=== PATIENT | female | born 1955 | race Caucasian/White ===

== ENCOUNTER 2017-07-04 17:42 | Inpatient (IN) | payer BC ==
--- NOTE | 2017-07-04 17:43 | PDOC ---
History of Present Illness - General History Source: Patient Exam Limitations: No Limitations - History of Present Illness Initial Comments: 07/04/17 18:19 The patient is a 62-year-old female, with a significant past medical history of asthma, HTN, and hypercholesterolemia, who presents to the ED with chest pain and shortness of breath. The patient reports that she had a recent exacerbation of her asthma a week ago for which she was given a course of antibiotics and steroids. The patient finished her course of antibiotics but refused to take the steroids because she dislikes how they make her feel. Her symptoms did improve with the antibiotics but they recurred 2 days ago. She states that she feels more lethargic than usual and has been using her albuterol pump more recently in the last few days. She denies any fever, chills, nausea, vomiting, diarrhea, or abdominal pain. PCP: Dr. Tellez <Rosa Rucker - Last Filed: 07/04/17 18:19> <Tiffanie Mantilla - Last Filed: 07/04/17 19:04> - General Chief Complaint: Shortness of Breath Stated Complaint: SHORTNESS OF BREATH Time Seen by Provider: 07/04/17 17:43 Past History <Rosa Rucker - Last Filed: 07/04/17 18:19> - Past Medical History Asthma: Yes HTN: Yes Hypercholesterolemia: Yes - Surgical History Abdominal Surgery: Yes Cholecystectomy: Yes - Suicide/Smoking/Psychosocial Hx Smoking History: Former smoker Have you smoked in the past 12 months: Yes If you are a former smoker, when did you quit?: 04/2014 Hx Alcohol Use: No Drug/Substance Use Hx: No Substance Use Type: None Hx Substance Use Treatment: No <Tiffanie Mantilla - Last Filed: 07/04/17 19:04> - Past Medical History Allergies/Adverse Reactions: Allergies Allergy/AdvReac Type Severity Reaction Status Date / Time No Known Drug Allergies Allergy Verified 07/04/17 17:51 Home Medications: Ambulatory Orders Albuterol Sulfate [Proair Hfa -] 1 - 2 inh PO TID 12/05/14 Review of Systems - Review of Systems Able to Perform ROS?: Yes Comments:: 07/04/17 18:20 GENERAL/CONSTITUTIONAL: (+)lethargic. No fever or chills. No weakness. HEAD, EYES, EARS, NOSE AND THROAT: No change in vision. No ear pain or discharge. No sore throat. CARDIOVASCULAR: (+)chest pain, shortness of breath. RESPIRATORY: No cough, wheezing, or hemoptysis. GASTROINTESTINAL: No nausea, vomiting, diarrhea or constipation. GENITOURINARY: No dysuria, frequency, or change in urination. MUSCULOSKELETAL: No joint or muscle swelling or pain. No neck or back pain. SKIN: No rash NEUROLOGIC: No headache, vertigo, loss of consciousness, or change in strength/ sensation. ENDOCRINE: No increased thirst. No abnormal weight change. HEMATOLOGIC/LYMPHATIC: No anemia, easy bleeding, or history of blood clots. ALLERGIC/IMMUNOLOGIC: No hives or skin allergy. <Roas Rucker - Last Filed: 07/04/17 18:19> *Physical Exam - Vital Signs Last Vital Signs Temp Pulse Resp BP Pulse Ox 97.9 F 93 H 18 139/83 95 07/04/17 17:43 07/04/17 17:43 07/04/17 17:43 07/04/17 17:43 07/04/17 17:43 - Physical Exam Comments: 07/04/17 18:21 GENERAL: Awake, alert, and fully oriented, in no acute distress HEAD: No signs of trauma EYES: PERRLA, EOMI, sclera anicteric, conjunctiva clear ENT: Auricles normal inspection, hearing grossly normal, nares patent, oropharynx clear without exudates. Moist mucosa NECK: Normal ROM, supple, no lymphadenopathy, JVD, or masses LUNGS: (+)Wheezing diffusely with rhonchi at the bases. HEART: (+)Tachycardic. Normal S1 and S2, no murmurs, rubs or gallops ABDOMEN: Soft, nontender, normoactive bowel sounds. No guarding, no rebound. No masses EXTREMITIES: Normal range of motion, no edema. No clubbing or cyanosis. No cords, erythema, or tenderness NEUROLOGICAL: Cranial nerves II through XII grossly intact. Normal speech, normal gait SKIN: Warm, Dry, normal turgor, no rashes or lesions noted <Rosa Rucker - Last Filed: 07/04/17 18:19> Heart Score/ECG Review - ECG Intrepretation Comment:: 07/04/17 19:04 sinus at 83, L axis, nl interval, no acute st/t wave findings <Tiffanie Mantilla - Last Filed: 07/04/17 19:04> ED Treatment Course - Medications Given in the ED: ED Medications Discontinued Medications Generic Name Dose Route Start Last Admin Trade Name Nona PRN Reason Stop Dose Admin Albuterol/Ipratropium 1 amp 07/04/17 17:53 07/04/17 18:15 Duoneb - NEB 07/04/17 17:54 1 amp ONCE ONE Administration Methylprednisolone Sodium Succinate 125 mg 07/04/17 17:53 07/04/17 18:15 Solu-Medrol - IVPB 07/04/17 17:54 125 mg ONCE ONE Administration Sodium Chloride 1,000 ml 07/04/17 17:53 07/04/17 18:15 Normal Saline - IV 07/04/17 17:54 1,000 ml ONCE ONE Administration <Rosa Rucker - Last Filed: 07/04/17 18:19> - LABORATORY CBC & Chemistry Diagram: 07/04/17 18:10 07/04/17 18:10 <Tiffanie Mantilla - Last Filed: 07/04/17 19:04> Medical Decision Making - Medical Decision Making 07/04/17 17:55 a/p: 62yo female with sob -recently treated with augmentin -still with sob -increased inhaler use -will give duo nebs, steroids, ivf hydration -will check labs, xray, flu -suspect asthma exacerbation with URI vs pna <Tiffanie Mantilla - Last Filed: 07/04/17 19:04> *DC/Admit/Observation/Transfer - Attestations Scribe Attestion: 07/04/17 18:23 Documentation prepared by Rosa Rucker, acting as medical instrument cable fabricator for Tiffanie Mantilla DO, MD. <Rosa Rucker - Last Filed: 07/04/17 18:19> - Attestations Physician Attestion: 07/04/17 17:57 I, Dr. Tiffanie Mantilla DO, attest that this document has been prepared under my direction and personally reviewed by me in its entirety. I further attest, that it accurately reflects all work, treatment, procedures and medical decision -making performed by me. <Tiffanie Mantilla - Last Filed: 07/04/17 19:04> Diagnosis at time of Disposition: Asthma exacerbation - Discharge Dispostion Condition at time of disposition: Fair - Referrals Referrals: Bere Tellez MD [Staff Physician] - Julián Mcdermott MD [Staff Physician] - - Patient Instructions Printed Discharge Instructions: Smoking Cessation
[2017-07-04] MEDS ORDERED: ALBUTEROL SO4 2.5/IPRATROPIUM 0.5 INH SOL 3 ML VIAL.NEB. NEB ONE ×4 (17:53→17:58)
[2017-07-04] MEDS ORDERED: methylPREDNISolone NA SUCC 125 MG/2 ML VIAL IVPB ONE (17:53)
[2017-07-04] MEDS ORDERED: SODIUM CHLORIDE 0.9% 1000 ML INFUS.BAG IV ONE (17:53)
[2017-07-04] MEDS ORDERED: methylPREDNISolone NA SUCC 125 MG/2 ML VIAL ONE (17:58)
[2017-07-04 18:37] LABS: BASO % 0.6 % (0-2.0); MCH 30.3 pg (25.7-33.7); MCHC 33.9 g/dl (32.0-36.0); MEAN CELL VOLUME 89.4 fl (80-96); MEAN PLT VOLUME 9.3 fl (7.5-11.1); NEUT % 51.5 % (42.8-82.8); PLATELET COUNT 150 K/MM3 (134-434); RDW 12.9 % (11.6-15.6); WHITE BLOOD COUNT 6.2 K/mm3 (4.0-10.8)
[2017-07-04 18:48] LABS: ALBUMIN 3.7 g/dl (3.5-5.0); ALK PHOS 69 U/L (32-92); ANION GAP 8 (8-16); BILIRUBIN,TOTAL 0.3 mg/dl (0.2-1.0); CALCIUM 9.3 mg/dl (8.4-10.2); CO2 24 mmol/L (22-28); CREATININE 0.7 mg/dl (0.6-1.3); GLUCOSE,RANDOM 120 mg/dl (74-106); MAGNESIUM 1.8 mg/dL (1.8-2.4); SGOT/AST 44 U/L (10-42); SGPT/ALT 26 U/L (10-40); TOT PROT 7.1 g/dl (6.4-8.3)
[2017-07-04 19:26] LABS: EOS # 0.1 #; LYMPH # 2.2 # (8-40); MONO # 0.7 #; NEUT # 3.2 # (42.8-82.8)
--- NOTE | 2017-07-04 19:57 | PDOC ---
*Physical Exam - Vital Signs Last Vital Signs Temp Pulse Resp BP Pulse Ox 97.9 F 88 22 136/97 95 07/04/17 17:43 07/04/17 19:27 07/04/17 19:27 07/04/17 19:27 07/04/17 19:27 ED Treatment Course - LABORATORY CBC & Chemistry Diagram: 07/04/17 18:10 07/04/17 18:10 - ADDITIONAL ORDERS Additional order review: Laboratory Results 07/04/17 18:10 Sodium 136 Potassium 3.4 L Chloride 104 Carbon Dioxide 24 Anion Gap 8 BUN 16 Creatinine 0.7 Creat Clearance w eGFR > 60 Random Glucose 120 H Calcium 9.3 Magnesium 1.8 Total Bilirubin 0.3 AST 44 H ALT 26 Alkaline Phosphatase 69 Total Protein 7.1 Albumin 3.7 07/04/17 18:10 RBC 4.73 MCV 89.4 MCHC 33.9 RDW 12.9 MPV 9.3 Neutrophils % 51.5 Lymphocytes % 36.1 Monocytes % 10.8 H Eosinophils % 1.0 Basophils % 0.6 - Medications Given in the ED: ED Medications Discontinued Medications Generic Name Dose Route Start Last Admin Trade Name Freq PRN Reason Stop Dose Admin Albuterol/Ipratropium 1 amp 07/04/17 17:53 07/04/17 18:15 Duoneb - NEB 07/04/17 17:54 1 amp ONCE ONE Administration Albuterol/Ipratropium 1 amp 07/04/17 17:54 07/04/17 18:45 Duoneb - NEB 07/04/17 17:55 1 amp ONCE ONE Administration Albuterol/Ipratropium 1 amp 07/04/17 17:54 07/04/17 19:10 Duoneb - NEB 07/04/17 17:55 Not Given ONCE ONE Methylprednisolone Sodium Succinate 125 mg 07/04/17 17:53 07/04/17 18:15 Solu-Medrol - IVPB 07/04/17 17:54 125 mg ONCE ONE Administration Sodium Chloride 1,000 ml 07/04/17 17:53 07/04/17 18:15 Normal Saline - IV 07/04/17 17:54 1,000 ml ONCE ONE Administration Progress Note - Progress Note Progress Note: Care of this patient was transferred to [place] from Dr. Fallon at 1900 hrs. This is a 62-year-old female who comes in with history of asthma. Patient has had acute exacerbation of her asthma times several days now. On arrival as per Dr. Mantilla patient was relatively tight with O2 sat of 95%. Patient has received 3 duo nebs and steroids. Will reassess patient and the if patient is not improved patient will be placed in observation overnight for additional treatment and management of her asthma. 19:30 Reassessment of patient patient is still tachypnea with use of accessory muscles. Patient is moving air but she still has diffuse expiratory wheezes throughout all abraham and her O2 sat is ranging from 92-94% on room air. Patient will be placed in observation Discussed with admitting hospitalist who has accepted patient for observation admission. *DC/Admit/Observation/Transfer Diagnosis at time of Disposition: Status asthmaticus Qualifiers: Asthma severity: moderate Asthma persistence: unspecified Qualified Code(s): J45.902 - Unspecified asthma with status asthmaticus - Discharge Dispostion Condition at time of disposition: Fair Admit: Yes - Referrals - Patient Instructions - Post Discharge Activity
[2017-07-04] MEDS ORDERED: MAGNESIUM SULF 50% (8.12 MEQ/2 ML-1 GM VIAL) IVPB ONE (20:20)
[2017-07-04 20:58] VITALS: BMI 27.8
--- NOTE | 2017-07-04 21:54 | HP ---
CHIEF COMPLAINT: SOB PCP: Geoff HISTORY OF PRESENT ILLNESS: This is a 62 year old female with a past medical history of asthma, HTN, HLD who presented with chest pain, SOB. She was seen by her PCP and started on augmentin and prednisone about a week ago. She did not take the prednisone because she doesn't like the way it makes her feel. ER course was notable for: (1) CXR without obvious infiltrate (2) WBC 6.2 Recent Travel: pt denies PAST MEDICAL HISTORY: asthma HTN-off meds, no longer need after weight loss HLD PAST SURGICAL HISTORY: open cholecystectomy B/L cataract x 2 kyphoplasty T7-T8 Social History: Smoking: pt denies Alcohol: pt denies Drugs: pt denies Family History: mother age 66-ovarian [place] father age 75, CVA had ministrokes prior to fatal CVA sister with heart problems 2 children-one with turners syndrome Allergies No Known Drug Allergies Allergy (Verified 07/04/17 17:51) HOME MEDICATIONS: 3 Medication Instructions Recorded Albuterol Sulfate [Proair Hfa -] 1 - 2 inh PO TID 12/05/14 Symbicort 160/4.5mcg 2 puffs BID REVIEW OF SYSTEMS CONSTITUTIONAL: Absent: fever, chills, diaphoresis, generalized weakness, malaise, loss of appetite, weight change HEENT: Absent: rhinorrhea, nasal congestion, throat pain, throat swelling, difficulty swallowing, mouth swelling, ear pain, eye pain, visual changes CARDIOVASCULAR: chest pain Absent: syncope, palpitations, irregular heart rate, lightheadedness, peripheral edema RESPIRATORY: cough, shortness of breath, dyspnea with exertion Absent: orthopnea, wheezing, stridor, hemoptysis GASTROINTESTINAL: Absent: abdominal pain, abdominal distension, nausea, vomiting, diarrhea, constipation, melena, hematochezia GENITOURINARY: Absent: dysuria, frequency, urgency, hesitancy, hematuria, flank pain, genital pain MUSCULOSKELETAL: Absent: myalgia, arthralgia, joint swelling, back pain, neck pain SKIN: Absent: rash, itching, pallor HEMATOLOGIC/IMMUNOLOGIC: Absent: easy bleeding, easy bruising, lymphadenopathy, frequent infections ENDOCRINE: Absent: unexplained weight gain, unexplained weight loss, heat intolerance, cold intolerance NEUROLOGIC: Absent: headache, focal weakness or paresthesias, dizziness, unsteady gait, seizure, mental status changes, bladder or bowel incontinence PSYCHIATRIC: Absent: anxiety, depression, suicidal or homicidal ideation, hallucinations. PHYSICAL EXAMINATION Vital Signs - 24 hr 3 07/04/17 07/04/17 07/04/17 07/04/17 07/04/17 17:43 19:27 19:59 20:39 20:45 Temperature 97.9 F 98.5 F Pulse Rate 93 H 82 Pulse Rate [ 88 88 Left] Respiratory 18 22 22 17 Rate Blood Pressure 139/83 Blood Pressure 136/97 136/97 144/86 [Left] O2 Sat by Pulse 95 95 95 94 L Oximetry (%) GENERAL: Awake, alert, and fully oriented, in no acute distress. HEAD: Normal with no signs of trauma. EYES: Pupils equal, round and reactive to light, extraocular movements intact, sclera anicteric, conjunctiva clear. No lid lag. EARS, NOSE, THROAT: Ears normal, nares patent, oropharynx clear without exudates. Moist mucous membranes. NECK: Normal range of motion, supple without lymphadenopathy, JVD, or masses. LUNGS: No crackles. No accessory muscle use. + expiratory wheezing HEART: Regular rate and rhythm, normal S1 and S2 without murmur, rub or gallop. ABDOMEN: Soft, nontender, not distended, normoactive bowel sounds, no guarding, no rebound, no masses. No hepatomegaly or splenomegaly. MUSCULOSKELETAL: Normal range of motion at all joints. No bony deformities or tenderness. No CVA tenderness. UPPER EXTREMITIES: 2+ pulses, warm, well-perfused. No cyanosis. No clubbing. No peripheral edema. LOWER EXTREMITIES: 2+ pulses, warm, well-perfused. No calf tenderness. No peripheral edema. NEUROLOGICAL: Cranial nerves II-XII intact. Normal speech. Normal gait. PSYCHIATRIC: Cooperative. Good eye contact. Appropriate mood and affect. SKIN: Warm, dry, normal turgor, no rashes or lesions noted, normal capillary refill. Laboratory Results - last 24 hr 3 07/04/17 07/04/17 18:10 18:10 WBC 6.2 RBC 4.73 Hgb 14.3 Hct 42.3 MCV 89.4 MCH 30.3 MCHC 33.9 RDW 12.9 Plt Count 150 MPV 9.3 Neutrophils % 51.5 Lymphocytes % 36.1 Monocytes % 10.8 H Eosinophils % 1.0 Basophils % 0.6 Sodium 136 Potassium 3.4 L Chloride 104 Carbon Dioxide 24 Anion Gap 8 BUN 16 Creatinine 0.7 Creat Clearance w eGFR > 60 Random Glucose 120 H Calcium 9.3 Magnesium 1.8 Total Bilirubin 0.3 AST 44 H ALT 26 Alkaline Phosphatase 69 Total Protein 7.1 Albumin 3.7 ECG normal sinus rhythm Vent rate 83, QTC 479 possible left atrial enlargement, left axis deviation No acute ST changes ASSESSMENT/PLAN: 62yF with PMH ashtma, HTN, HLD presented with SOB and chest pain with recent treatment for asthma exacerbation. Asthma exacerbation - cont solumedrol 40mg Q6h - duoneb QID with albuterol PRN q4h - defer antibiotic use as no WBC or obvious infiltrate on CXR, await final read. HTN/HLD - off meds since weight loss - f/u with PCP FEN - tolerating po - BMP in am - regular diet DVT PPX - chemoprophylaxis deferred as anticipated LOS <48h, reassess if longer Dispo: pt currently requires inpatient observation for management of her emergent condition. Visit type - Emergency Visit Emergency Visit: Yes ED Registration Date: 07/04/17 Care time: The patient presented to the Emergency Department on the above date and was hospitalized for further evaluation of their emergent condition. - New Patient This patient is new to me today: Yes Date on this admission: 07/04/17 - Critical Care Critical Care patient: No
[2017-07-04] MEDS ORDERED: ALBUTEROL SO4 0.083% IH SOL 2.5 MG/3 ML VIAL.NEB. NEB PRN (21:58)
[2017-07-04] MEDS ORDERED: ALBUTEROL SO4 0.083% IH SOL 2.5 MG/3 ML VIAL.NEB. NEB SCH (22:00)
[2017-07-04] MEDS: ALBUTEROL SO4 2.5/IPRATROPIUM 0.5 INH SOL 3 ML VIAL.NEB. NEB SCH (23:09)
[2017-07-04] MEDS: BUDESONIDE/FORMETEROL FUMARATE 160/4.5 mcg INHALER IH SCH (23:10)
[2017-07-05] MEDS: methylPREDNISolone NA SUCC 40 MG/1 ML VIAL IVPUSH SCH ×4 (04:03→21:05)
[2017-07-05] MEDS: ALBUTEROL SO4 2.5/IPRATROPIUM 0.5 INH SOL 3 ML VIAL.NEB. NEB SCH ×4 (06:31→23:38)
--- NOTE | 2017-07-05 08:10 | PN ---
Physical Exam: SUBJECTIVE: Patient seen and examined, reports some dyspnea upon exertion, reports feeling slightly improved. OBJECTIVE: Patient is a 62 y/o female with a past medical history of asthma, HTN, and HLD. Patient was admitted from the emergency department to observation for asthma excerbation. vital Signs Period Temp Pulse Resp BP Sys/Vazquez Pulse Ox Last 24 Hr 97.9 F-98.5 F 68-93 17-22 136-146/75-97 94-97 GENERAL: The patient is awake, alert, and fully oriented, in no acute distress. HEAD: Normal with no signs of trauma. EYES: PERRL, extraocular movements intact, sclera anicteric, conjunctiva clear. No ptosis. ENT: Ears normal, nares patent, oropharynx clear without exudates, moist mucous membranes. NECK: Trachea midline, full range of motion, supple. LUNGS: Breath sounds equal, bilateral inspiratory wheeze noted to the apexes, diminished to the bases, RR 22, no crackles, no accessory muscle use. HEART: Regular rate and rhythm, S1, S2 without murmur, rub or gallop. ABDOMEN: Soft, nontender, nondistended, normoactive bowel sounds, no guarding, no rebound, no hepatosplenomegaly, no masses. EXTREMITIES: 2+ pulses, warm, well-perfused, no edema. NEUROLOGICAL: Cranial nerves II through XII grossly intact. Normal speech, gait not observed. PSYCH: Normal mood, normal affect. SKIN: Warm, dry, normal turgor, no rashes or lesions noted Laboratory Results - last 24 hr 07/04/17 07/04/17 18:10 18:10 WBC 6.2 RBC 4.73 Hgb 14.3 Hct 42.3 MCV 89.4 MCH 30.3 MCHC 33.9 RDW 12.9 Plt Count 150 MPV 9.3 Neutrophils % 51.5 Lymphocytes % 36.1 Monocytes % 10.8 H Eosinophils % 1.0 Basophils % 0.6 Sodium 136 Potassium 3.4 L Chloride 104 Carbon Dioxide 24 Anion Gap 8 BUN 16 Creatinine 0.7 Creat Clearance w eGFR > 60 Random Glucose 120 H Calcium 9.3 Magnesium 1.8 Total Bilirubin 0.3 AST 44 H ALT 26 Alkaline Phosphatase 69 Total Protein 7.1 Albumin 3.7 Active Medications Generic Name Dose Route Start Last Admin Trade Name Freq PRN Reason Stop Dose Admin Albuterol Sulfate 1 amp 12/25/17 21:58 Ventolin 0.083% Nebulizer Soln - NEB Q4H PRN SHORT OF BREATH/WHEEZING Albuterol/Ipratropium 1 amp 07/05/17 00:00 07/05/17 06:31 Duoneb - NEB 1 amp QIDR CORA Administration Budesonide/Formoterol Fumarate 2 puff 07/04/17 22:00 07/04/17 23:10 Symbicort 160/4.5mcg - IH Not Given BID CORA Methylprednisolone Sodium Succinate 40 mg 07/05/17 03:00 07/05/17 04:03 Solu-Medrol - IVPUSH 40 mg Q6H-IV CORA Administration IMAGING chest xray: no acute pathology chest CT: mild chronic interstial lung disease, left basilar atelactasis ASSESSMENT/PLAN: 1) pulm copd excerbation - continue solumedrol 40mg q6h - continue symbicort will add spiriva, continue albuterol neb q4h prn - keep spod2 above 92% with supplemental O2 - chest ct reviewed, pt has chronic disease will need pulmonary for follow up PFT's appreciate the input of professor/nurse anesthetist 2) cardiovascular hypertension - no home medications, b/p at goal, close monitoring f/e/n - low sodium diet - replete lytes prn ppx - lovenox - pepcid - oob - scd dispo: pt requires obsv admission Visit type - Emergency Visit Emergency Visit: Yes ED Registration Date: 07/04/17 Care time: The patient presented to the Emergency Department on the above date and was hospitalized for further evaluation of their emergent condition. - New Patient This patient is new to me today: Yes Date on this admission: 07/05/17 - Critical Care Critical Care patient: No - Discharge Referral Referred to [facility] Med P.C.: No
[2017-07-05 08:15] LABS: EOS % 0.1 % (0-4.5); MCHC 34.6 g/dl (32.0-36.0); MEAN CELL VOLUME 89.7 fl (80-96); MEAN PLT VOLUME 9.2 fl (7.5-11.1); PLATELET COUNT 157 K/MM3 (134-434); RDW 12.6 % (11.6-15.6)
[2017-07-05 08:35] LABS: ANION GAP 7 (8-16); CALCIUM 8.8 mg/dl (8.4-10.2); CO2 22 mmol/L (22-28); CREATININE 0.5 mg/dl (0.6-1.3); GLUCOSE,RANDOM 149 mg/dl (74-106); MAGNESIUM 1.9 mg/dL (1.8-2.4); PHOSPHOROUS 2.2 mg/dl (2.5-4.6)
[2017-07-05] MEDS ORDERED: PT OWN MED DRAWER 7, Y5N ONE ×2 (09:30→21:07)
[2017-07-05] MEDS ORDERED: MAGNESIUM SULF 50% (8.12 MEQ/2 ML-1 GM VIAL) IVPB ONE (09:30)
[2017-07-05] MEDS: NAPH,MB-DB/K PH,MBDB POWDER PACKET PO SCH ×2 (09:58→21:08)
[2017-07-05] MEDS ORDERED: TIOTROPIUM BROMIDE 18 MCG/INH (DEVICE W/ 5 CAPSULES) IH SCH (10:00)
[2017-07-05] MEDS: BUDESONIDE/FORMETEROL FUMARATE 160/4.5 mcg INHALER IH SCH ×2 (10:10→21:08)
[2017-07-05] MEDS: FAMOTIDINE 20 MG TABLET PO SCH ×2 (12:36→21:08)
--- NOTE | 2017-07-05 13:03 | EKG ---
Test Reason : Blood Pressure : / mmHG Vent. Rate : 083 BPM Atrial Rate : 083 BPM P-R Int : 126 ms QRS Dur : 090 ms QT Int : 408 ms P-R-T Axes : 053 -36 019 degrees QTc Int : 479 ms NORMAL SINUS RHYTHM POSSIBLE LEFT ATRIAL ENLARGEMENT LEFT AXIS DEVIATION ABNORMAL ECG WHEN COMPARED WITH ECG OF 01-NOV-2014 09:33, ST NO LONGER DEPRESSED IN LATERAL LEADS Confirmed by MD Kip, Vinnie ([id number]) on 07/05/2017 1:02:35 PM Referred By: Jakob Hutchins Confirmed By:Vinnie Shin MD
[2017-07-05] MEDS ORDERED: ALBUTEROL SO4 0.083% IH SOL 2.5 MG/3 ML VIAL.NEB. NEB PRN (14:34)
--- NOTE | 2017-07-05 14:34 | CON.PULM ---
Consult Consult Specialty:: PULMONARY Referred by:: JOSE MANUEL Reason for Consultation:: COUGH/WHEEZE - History of Present Illness Chief Complaint: COUGH/WHEEZE/SOB History of Present Illness: The patient is a 62-year-old female, with a significant past medical history of asthma, HTN, and hypercholesterolemia, who presents to the ED with chest pain and shortness of breath. The patient reports that she had a recent exacerbation of her asthma a week ago for which she was given a course of antibiotics and steroids. The patient finished her course of antibiotics but refused to take the steroids because she dislikes how they make her feel. Her symptoms did improve with the antibiotics but they recurred 2 days ago. She states that she feels more lethargic than usual and has been using her albuterol pump more recently in the last few days. She is an active smoker,1/2 ppd. 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 No: AFIB, DE Pulmonary: Yes: Asthma, COPD. 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 [employer] Home Medications - Allergies Allergies/Adverse Reactions: Allergies Allergy/AdvReac Type Severity Reaction Status Date / Time No Known Drug Allergies Allergy Verified 07/04/17 17:51 - Home Medications Home Medications: Ambulatory Orders Albuterol Sulfate [Proair Hfa -] 1 - 2 inh PO TID 12/05/14 Family Disease History - Family Disease History Family History: Unremarkable Review of Systems - Review of Systems Constitutional: denies: Fever Eyes: denies: Blurred Vision HENT: denies: Difficult Swallowing Neck: denies: Decreased ROM Cardiovascular: reports: Chest Pain, Shortness of Breath Respiratory: reports: Cough, Exercise Intolerance, SOB, SOB on Exertion, Wheezing. denies: Hemoptysis Physical Exam Vital Sings: Vital Signs Temperature 98.4 F 07/05/17 13:45 Pulse Rate 82 07/05/17 13:45 Respiratory Rate 19 07/05/17 13:45 Blood Pressure 122/72 07/05/17 13:45 O2 Sat by Pulse Oximetry (%) 96 07/05/17 13:45 Constitutional: Yes: Calm Eyes: Yes: EOM Intact HENT: Yes: Normocephalic Neck: Yes: Trachea Midline Cardiovascular: Yes: Regular Rate and Rhythm Respiratory: Yes: Wheezes (b/l diffuse/exp) Gastrointestinal: Yes: Normal Bowel Sounds Edema: No Labs: CBC, BMP 07/05/17 07:00 07/05/17 07:00 rest reviewed Imaging - Results Chest X-ray: Report Reviewed, Image Reviewed Cat Scan: Report Reviewed, Image Reviewed Problem List - Problems (1) COPD (chronic obstructive pulmonary disease) with acute bronchitis Code(s): J44.0 - CHRONIC OBSTRUCTIVE PULMON DISEASE W ACUTE LOWER RESP INFCT; J20.9 - ACUTE BRONCHITIS, UNSPECIFIED (2) Asthma exacerbation Code(s): J45.901 - UNSPECIFIED ASTHMA WITH (ACUTE) EXACERBATION (3) HTN (hypertension) Code(s): I10 - ESSENTIAL (PRIMARY) HYPERTENSION Qualifiers: Hypertension type: essential hypertension Qualified Code(s): I10 - Essential (primary) hypertension (4) URI (upper respiratory infection) Code(s): J06.9 - ACUTE UPPER RESPIRATORY INFECTION, UNSPECIFIED Assessment/Plan A/E COPD/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
[2017-07-06] MEDS: ALBUTEROL SO4 2.5/IPRATROPIUM 0.5 INH SOL 3 ML VIAL.NEB. NEB SCH ×3 (04:12→12:57)
[2017-07-06] MEDS: methylPREDNISolone NA SUCC 40 MG/1 ML VIAL IVPUSH SCH ×4 (04:14→21:23)
[2017-07-06 08:36] LABS: ANION GAP 9 (8-16); CALCIUM 8.9 mg/dl (8.4-10.2); CO2 21 mmol/L (22-28); CREATININE 0.5 mg/dl (0.6-1.3); GLUCOSE,RANDOM 125 mg/dl (74-106); PHOSPHOROUS 3.1 mg/dl (2.5-4.6)
[2017-07-06 08:40] LABS: BASO % 0.2 % (0-2.0); MCH 30.5 pg (25.7-33.7); MCHC 33.8 g/dl (32.0-36.0); MEAN CELL VOLUME 90.1 fl (80-96); MEAN PLT VOLUME 9.6 fl (7.5-11.1); PLATELET COUNT 192 K/MM3 (134-434); RDW 12.8 % (11.6-15.6); WHITE BLOOD COUNT 13.8 K/mm3 (4.0-10.8)
[2017-07-06 08:48] LABS: NEUT % 89.9 % (42.8-82.8)
[2017-07-06] MEDS ORDERED: PT OWN MED DRAWER 7, Y5N ONE ×2 (09:04→21:05)
[2017-07-06] MEDS: NICOTINE 14 MG/24 HOURS TOPICAL PATCH TD SCH (09:12)
[2017-07-06] MEDS: FAMOTIDINE 20 MG TABLET PO SCH ×2 (09:13→21:23)
[2017-07-06] MEDS: NAPH,MB-DB/K PH,MBDB POWDER PACKET PO SCH ×2 (09:13→21:26)
[2017-07-06] MEDS ORDERED: ALBUTEROL SO4 0.083% IH SOL 2.5 MG/3 ML VIAL.NEB. NEB ONE (09:15)
[2017-07-06] MEDS: BUDESONIDE/FORMETEROL FUMARATE 160/4.5 mcg INHALER IH SCH ×2 (09:16→22:20)
[2017-07-06 09:28] LABS: MAGNESIUM 2.2 mg/dL (1.8-2.4)
--- NOTE | 2017-07-06 12:06 | PN ---
Physical Exam: SUBJECTIVE: Patient seen and examined, reports feeling slightly improved, ongoing dyspnea upon exertion OBJECTIVE:Patient is a 62 y/o female with a past medical history of asthma, HTN , and HLD. Patient was admitted from the emergency department to observation for asthma excerbation. Vital Signs Period Temp Pulse Resp BP Sys/Vazquez Pulse Ox Last 24 Hr 97.8 F-98.6 F 74-82 16-19 122-156/72-84 96-99 GENERAL: The patient is awake, alert, and fully oriented, in no acute distress. HEAD: Normal with no signs of trauma. EYES: PERRL, extraocular movements intact, sclera anicteric, conjunctiva clear. No ptosis. ENT: Ears normal, nares patent, oropharynx clear without exudates, moist mucous membranes. NECK: Trachea midline, full range of motion, supple. LUNGS: Breath sounds equal, bilateral inspiratory wheeze to apexes, diminished to bases, no crackles, no accessory muscle use. HEART: Regular rate and rhythm, S1, S2 without murmur, rub or gallop. ABDOMEN: Soft, nontender, nondistended, normoactive bowel sounds, no guarding, no rebound, no hepatosplenomegaly, no masses. EXTREMITIES: 2+ pulses, warm, well-perfused, no edema. NEUROLOGICAL: Cranial nerves II through XII grossly intact. Normal speech, gait not observed. PSYCH: Normal mood, normal affect. SKIN: Warm, dry, normal turgor, no rashes or lesions noted Laboratory Results - last 24 hr 07/06/17 07/06/17 08:00 08:00 WBC 13.8 H D RBC 4.55 Hgb 13.9 Hct 41.0 MCV 90.1 MCH 30.5 MCHC 33.8 RDW 12.8 Plt Count 192 D MPV 9.6 Neutrophils % 89.9 H Lymphocytes % 7.1 L D Monocytes % 2.8 L Eosinophils % 0.0 D Basophils % 0.2 D Sodium 135 L Potassium 3.8 Chloride 105 Carbon Dioxide 21 L Anion Gap 9 BUN 13 D Creatinine 0.5 L Random Glucose 125 H Calcium 8.9 Phosphorus 3.1 D Magnesium 2.2 Active Medications Generic Name Dose Route Start Last Admin Trade Name Freq PRN Reason Stop Dose Admin Albuterol Sulfate 1 amp 07/05/17 14:34 Ventolin 0.083% Nebulizer Soln - NEB Q1H PRN SHORT OF BREATH/WHEEZING Budesonide/Formoterol Fumarate 2 puff 07/04/17 22:00 07/06/17 09:16 Symbicort 160/4.5mcg - IH 2 puff BID CORA Administration Famotidine 20 mg 07/05/17 11:30 07/06/17 09:13 Pepcid - PO 20 mg BID CORA Administration Methylprednisolone Sodium Succinate 40 mg 07/05/17 03:00 07/06/17 09:12 Solu-Medrol - IVPUSH 40 mg Q6H-IV CORA Administration Nicotine 14 mg 07/06/17 10:00 07/06/17 09:12 Nicoderm Patch - TD 14 mg DAILY CORA Administration Potassium Phos/Sodium Phos 1 packet 07/05/17 10:00 07/06/17 09:13 Phos-Nak Packet - PO 1 packet BID CORA Administration Microbiology 07/04/17 18:10 Nasopharyngeal Swab Influenza Types A,B Antigen (MIGUEL ANGEL) - Final , negative 07/04/17 18:10 Nasopharyngeal Swab - Final IMAGING chest xray: no acute pathology chest CT: mild chronic interstial lung disease, left basilar atelactasis ASSESSMENT/PLAN: 1) pulm copd excerbation - continue solumedrol 40mg q6h - continue symbicort, add duonebs q6h standing and albuterol neb q4h prn - keep spod2 above 92% with supplemental O2 - pulmonary consulted and following 2) cardiovascular hypertension - no home medications, b/p at goal, close monitoring f/e/n - low sodium diet - replete lytes prn ppx - lovenox - pepcid - oob - scd dispo: pt requires obsv admission Visit type - Emergency Visit Emergency Visit: Yes ED Registration Date: 07/06/17 Care time: The patient presented to the Emergency Department on the above date and was hospitalized for further evaluation of their emergent condition. - New Patient This patient is new to me today: No - Critical Care Critical Care patient: No - Discharge Referral Referred to [facility] No
[2017-07-06] MEDS: ENOXAPARIN NA (PORCINE) 40 MG/0.4 ML DISP.SYRIN SQ SCH (14:00)
--- NOTE | 2017-07-06 16:28 | PN ---
Progress Note (short form) - Note Progress Note: PULMONARY VSS/AFEBRILE SUBJECTIVE IMPROVEMENT ANICTERIC SCATTERED MINIMAL EXP WHEEZE S1S2 BS+ NO EDEMA LABS/MEDS/NOTES/IMAGES REVIEWED WBC 13.8(?STEROIDS) A/E COPD/BRONCHOSPASTIC COMPONENT RESOLVING ACTIVE SMOKER NO INFILTRATE ON CT CHEST/INFLU SWAB - 02/IV STEROIDS START TAPER AM /COLE/LABA/LAMA/ICS PATIENT COMPLETED 8 DAYS OF BID AUGMENTIN LAST WEEK PEAK FLOW 330L/M MAY BE READY FOR DISCHARGE TOMORROW R INA CARREON Problem List - Problems (1) COPD (chronic obstructive pulmonary disease) with acute bronchitis Code(s): J44.0 - CHRONIC OBSTRUCTIVE PULMON DISEASE W ACUTE LOWER RESP INFCT; J20.9 - ACUTE BRONCHITIS, UNSPECIFIED (2) Asthma exacerbation Code(s): J45.901 - UNSPECIFIED ASTHMA WITH (ACUTE) EXACERBATION (3) HTN (hypertension) Code(s): I10 - ESSENTIAL (PRIMARY) HYPERTENSION Qualifiers: Hypertension type: essential hypertension Qualified Code(s): I10 - Essential (primary) hypertension (4) URI (upper respiratory infection) Code(s): J06.9 - ACUTE UPPER RESPIRATORY INFECTION, UNSPECIFIED
[2017-07-07] MEDS: methylPREDNISolone NA SUCC 40 MG/1 ML VIAL IVPUSH SCH ×4 (02:25→20:17)
[2017-07-07] MEDS: ALBUTEROL SO4 2.5/IPRATROPIUM 0.5 INH SOL 3 ML VIAL.NEB. NEB SCH ×4 (02:25→19:26)
[2017-07-07] MEDS ORDERED: PT OWN MED DRAWER 7, Y5N ONE (09:19)
[2017-07-07] MEDS: ENOXAPARIN NA (PORCINE) 40 MG/0.4 ML DISP.SYRIN SQ SCH (09:22)
[2017-07-07] MEDS: FAMOTIDINE 20 MG TABLET PO SCH ×2 (09:22→21:23)
[2017-07-07] MEDS: NAPH,MB-DB/K PH,MBDB POWDER PACKET PO SCH ×2 (09:22→21:23)
[2017-07-07] MEDS: NICOTINE 14 MG/24 HOURS TOPICAL PATCH TD SCH (09:22)
[2017-07-07] MEDS: BUDESONIDE/FORMETEROL FUMARATE 160/4.5 mcg INHALER IH SCH ×2 (09:25→21:23)
--- NOTE | 2017-07-07 10:21 | PN ---
Progress Note, Physician History of Present Illness: pulmonary alert,still c/o chest tightness,sob with exertion - Current Medication List Current Medications: Active Medications Albuterol Sulfate (Ventolin 0.083% Nebulizer Soln -) 1 amp NEB Q1H PRN PRN Reason: SHORT OF BREATH/WHEEZING Last Admin: 07/07/17 09:43 Dose: 1 amp Albuterol/Ipratropium (Duoneb -) 1 amp NEB QIDR [facility] Last Admin: 07/07/17 06:58 Dose: 1 amp Budesonide/Formoterol Fumarate (Symbicort 160/4.5mcg -) 2 puff IH BID [facility] Last Admin: 07/07/17 09:25 Dose: 2 puff Enoxaparin Sodium (Lovenox -) 40 mg SQ DAILY [facility] Last Admin: 07/07/17 09:22 Dose: 40 mg Famotidine (Pepcid -) 20 mg PO BID [facility] Last Admin: 07/07/17 09:22 Dose: 20 mg Methylprednisolone Sodium Succinate (Solu-Medrol -) 40 mg IVPUSH Q6H-IV [facility] Last Admin: 07/07/17 08:25 Dose: 40 mg Nicotine (Nicoderm Patch -) 14 mg TD DAILY [facility] Last Admin: 07/07/17 09:22 Dose: 14 mg Potassium Phos/Sodium Phos (Phos-Nak Packet -) 1 packet PO BID [facility] Last Admin: 07/07/17 09:22 Dose: 1 packet - Objective Vital Signs: Vital Signs Temperature 98.9 F 07/07/17 06:00 Pulse Rate 67 07/07/17 06:00 Respiratory Rate 18 07/07/17 07:38 Blood Pressure 162/89 07/07/17 06:00 O2 Sat by Pulse Oximetry (%) 96 07/07/17 07:38 Constitutional: Yes: Well Nourished, Calm Eyes: Yes: WNL HENT: Yes: WNL Neck: Yes: WNL Cardiovascular: Yes: Regular Rate and Rhythm, S1, S2 Respiratory: Yes: Wheezes (aaron wheezes) Gastrointestinal: Yes: Normal Bowel Sounds, Soft Extremities: Yes: WNL Edema: No Labs: CBC, BMP 07/06/17 08:00 07/06/17 08:00 Assessment/Plan Problem List - Problems (1) COPD (chronic obstructive pulmonary disease) with acute bronchitis Code(s): J44.0 - CHRONIC OBSTRUCTIVE PULMON DISEASE W ACUTE LOWER RESP INFCT; J20.9 - ACUTE BRONCHITIS, UNSPECIFIED (2) Asthma exacerbation Code(s): J45.901 - UNSPECIFIED ASTHMA WITH (ACUTE) EXACERBATION (3) HTN (hypertension) Code(s): I10 - ESSENTIAL (PRIMARY) HYPERTENSION Qualifiers: Hypertension type: essential hypertension Qualified Code(s): I10 - Essential (primary) hypertension (4) URI (upper respiratory infection) Code(s): J06.9 - ACUTE UPPER RESPIRATORY INFECTION, UNSPECIFIED Assessment/Plan A/E COPD/BRONCHOSPASTIC COMPONENT ACTIVE SMOKER 02 IV STEROID INHALED BRONCHODILATORS DAILY PEAK FLOW YEARLY LOW DOSE CHEST CT FOR STEPHANIE CANCER SCREENING DR MARQUEZ
--- NOTE | 2017-07-07 11:12 | PN ---
Physical Exam: SUBJECTIVE: Patient seen and examined, reports ongoing dyspnea upon exertionion and chest pain. OBJECTIVE: Patient is a 62 y/o female with a past medical history of asthma, HTN, and HLD. Patient was admitted from the emergency department for asthma excerbation. Vital Signs Period Temp Pulse Resp BP Sys/Vazquez Pulse Ox Last 24 Hr 98.0 F-98.9 F 67-78 16-18 118-162/64-89 94-96 GENERAL: The patient is awake, alert, and fully oriented, in no acute distress. HEAD: Normal with no signs of trauma. EYES: PERRL, extraocular movements intact, sclera anicteric, conjunctiva clear. No ptosis. ENT: Ears normal, nares patent, oropharynx clear without exudates, moist mucous membranes. NECK: Trachea midline, full range of motion, supple. LUNGS: Breath sounds equal, scant bilateral inspiratory wheeze, diminished to base, no crackles, no accessory muscle use. HEART: Regular rate and rhythm, S1, S2 without murmur, rub or gallop. ABDOMEN: Soft, nontender, nondistended, normoactive bowel sounds, no guarding, no rebound, no hepatosplenomegaly, no masses. EXTREMITIES: 2+ pulses, warm, well-perfused, no edema. NEUROLOGICAL: Cranial nerves II through XII grossly intact. Normal speech, gait not observed. PSYCH: Normal mood, normal affect. SKIN: Warm, dry, normal turgor, no rashes or lesions noted Active Medications Generic Name Dose Route Start Last Admin Trade Name Freq PRN Reason Stop Dose Admin Albuterol Sulfate 1 amp 07/05/17 14:34 07/07/17 09:43 Ventolin 0.083% Nebulizer Soln - NEB 1 amp Q1H PRN Administration SHORT OF BREATH/WHEEZING Albuterol/Ipratropium 1 amp 07/06/17 12:30 07/07/17 06:58 Duoneb - NEB 1 amp QIDR CORA Administration Budesonide/Formoterol Fumarate 2 puff 07/04/17 22:00 07/07/17 09:25 Symbicort 160/4.5mcg - IH 2 puff BID CORA Administration Enoxaparin Sodium 40 mg 07/06/17 13:30 07/07/17 09:22 Lovenox - SQ 40 mg DAILY CORA Administration Famotidine 20 mg 07/05/17 11:30 07/07/17 09:22 Pepcid - PO 20 mg BID CORA Administration Methylprednisolone Sodium Succinate 40 mg 07/05/17 03:00 07/07/17 08:25 Solu-Medrol - IVPUSH 40 mg Q6H-IV CORA Administration Nicotine 14 mg 07/06/17 10:00 07/07/17 09:22 Nicoderm Patch - TD 14 mg DAILY CORA Administration Potassium Phos/Sodium Phos 1 packet 07/05/17 10:00 07/07/17 09:22 Phos-Nak Packet - PO 1 packet BID CORA Administration Microbiology 07/04/17 18:10 Nasopharyngeal Swab Influenza Types A,B Antigen (MIGUEL ANGEL) - Final , negative 07/04/17 18:10 Nasopharyngeal Swab - Final, negative IMAGING chest xray: no acute pathology chest CT: mild chronic interstial lung disease, left basilar atelactasis ASSESSMENT/PLAN: 1) pulm copd excerbation - continue solumedrol 40mg q6h - continue symbicort and duonebs q6h standing and albuterol neb q4h prn - daily peak flow - keep spod2 above 92% with supplemental O2 - pulmonary consulted and following 2) cardiovascular hypertension - no home medications, b/p at goal, close monitoring f/e/n - low sodium diet - replete lytes prn ppx - lovenox - pepcid - oob - scd dispo: pt requires inpatient admission Visit type - Emergency Visit Emergency Visit: Yes ED Registration Date: 07/06/17 Care time: The patient presented to the Emergency Department on the above date and was hospitalized for further evaluation of their emergent condition. - New Patient This patient is new to me today: No - Critical Care Critical Care patient: No - Discharge Referral Referred to [facility] Med P.C.: No
[2017-07-08] MEDS: methylPREDNISolone NA SUCC 40 MG/1 ML VIAL IVPUSH SCH ×2 (02:35→08:41)
[2017-07-08] MEDS: ALBUTEROL SO4 2.5/IPRATROPIUM 0.5 INH SOL 3 ML VIAL.NEB. NEB SCH ×2 (06:00)
[2017-07-08 06:44] VITALS: TEMP 98.4
--- NOTE | 2017-07-08 08:06 | PN ---
Progress Note, Physician History of Present Illness: pulmonary alert,nad,-sob,-cough - Current Medication List Current Medications: Active Medications Albuterol Sulfate (Ventolin 0.083% Nebulizer Soln -) 1 amp NEB Q1H PRN PRN Reason: SHORT OF BREATH/WHEEZING Last Admin: 07/07/17 09:43 Dose: 1 amp Albuterol/Ipratropium (Duoneb -) 1 amp NEB QIDR [facility] Last Admin: 07/08/17 06:00 Dose: 1 amp Budesonide/Formoterol Fumarate (Symbicort 160/4.5mcg -) 2 puff IH BID [facility] Last Admin: 07/07/17 21:23 Dose: 2 puff Enoxaparin Sodium (Lovenox -) 40 mg SQ DAILY [facility] Last Admin: 07/07/17 09:22 Dose: 40 mg Famotidine (Pepcid -) 20 mg PO BID [facility] Last Admin: 07/07/17 21:23 Dose: 20 mg Methylprednisolone Sodium Succinate (Solu-Medrol -) 40 mg IVPUSH Q6H-IV [facility] Last Admin: 07/08/17 02:35 Dose: 40 mg Nicotine (Nicoderm Patch -) 14 mg TD DAILY [facility] Last Admin: 07/07/17 09:22 Dose: 14 mg Potassium Phos/Sodium Phos (Phos-Nak Packet -) 1 packet PO BID [facility] Last Admin: 07/07/17 21:23 Dose: 1 packet - Objective Vital Signs: Vital Signs Temperature 98.4 F 07/08/17 06:00 Pulse Rate 63 07/08/17 06:00 Respiratory Rate 18 07/08/17 07:54 Blood Pressure 173/69 07/08/17 06:00 O2 Sat by Pulse Oximetry (%) 95 07/08/17 07:54 Constitutional: Yes: Calm, Thin Eyes: Yes: WNL HENT: Yes: WNL Neck: Yes: WNL Cardiovascular: Yes: Regular Rate and Rhythm, S1, S2 Respiratory: Yes: CTA Bilaterally Gastrointestinal: Yes: Normal Bowel Sounds, Soft Extremities: Yes: WNL Edema: No Labs: CBC, BMP Assessment/Plan Problem List - Problems (1) COPD (chronic obstructive pulmonary disease) with acute bronchitis Code(s): J44.0 - CHRONIC OBSTRUCTIVE PULMON DISEASE W ACUTE LOWER RESP INFCT; J20.9 - ACUTE BRONCHITIS, UNSPECIFIED (2) Asthma exacerbation Code(s): J45.901 - UNSPECIFIED ASTHMA WITH (ACUTE) EXACERBATION (3) HTN (hypertension) Code(s): I10 - ESSENTIAL (PRIMARY) HYPERTENSION Qualifiers: Hypertension type: essential hypertension Qualified Code(s): I10 - Essential (primary) hypertension (4) URI (upper respiratory infection) Code(s): J06.9 - ACUTE UPPER RESPIRATORY INFECTION, UNSPECIFIED Assessment/Plan A/E COPD/BRONCHOSPASTIC COMPONENT ACTIVE SMOKER 02 PREDNISONE 5Omg DAILY X 3 DAYS WITH TAPER 10MG EVERY 3'DAYS INHALED BRONCHODILATORS SYMBICORT 160/4.4 2 PUFFS Q12 SPIRIVA 1 PUFF DAILY PFTS OUTPATIENT DAILY PEAK FLOW YEARLY LOW DOSE CHEST CT FOR LUNG CANCER SCREENING DR MARQUEZ
[2017-07-08] MEDS: FAMOTIDINE 20 MG TABLET PO SCH (09:42)
[2017-07-08] MEDS: NAPH,MB-DB/K PH,MBDB POWDER PACKET PO SCH (09:44)
[2017-07-08] MEDS: ENOXAPARIN NA (PORCINE) 40 MG/0.4 ML DISP.SYRIN SQ SCH (09:44)
[2017-07-08] MEDS: BUDESONIDE/FORMETEROL FUMARATE 160/4.5 mcg INHALER IH SCH (09:44)
[2017-07-08] MEDS: NICOTINE 14 MG/24 HOURS TOPICAL PATCH TD SCH (09:44)
[2017-07-08] MEDS ORDERED: predniSONE 20 MG TABLET (UD) PO ONE (09:58)
--- NOTE | 2017-07-08 10:31 | DS ---
Physical Exam: SUBJECTIVE: Patient seen and examined OBJECTIVE: Vital Signs Period Temp Pulse Resp BP Sys/Vazquez Pulse Ox Last 24 Hr 97.7 F-98.4 F 63-75 18-19 125-173/69-88 95-98 PHYSICAL EXAM GENERAL: The patient is awake, alert, and fully oriented, in no acute distress. HEAD: Normal with no signs of trauma. EYES: PERRL, extraocular movements intact, sclera anicteric, conjunctiva clear. ENT: Ears normal, nares patent, oropharynx clear without exudates, moist mucous membranes. NECK: Trachea midline, full range of motion, supple. LUNGS: Breath sounds equal, clear to auscultation bilaterally, no wheezes, no crackles, no accessory muscle use. HEART: Regular rate and rhythm, S1, S2 without murmur, rub or gallop. ABDOMEN: Soft, nontender, nondistended, normoactive bowel sounds, no guarding, no rebound, no hepatosplenomegaly, no masses. EXTREMITIES: 2+ pulses, warm, well-perfused, no edema. NEUROLOGICAL: Cranial nerves II through XII grossly intact. Normal speech, gait not observed. PSYCH: Normal mood, normal affect. SKIN: Warm, dry, normal turgor, no rashes or lesions noted. LABS HOSPITAL COURSE: Date of Admission:07/06/17 Date of Discharge: 07/08/17 Minutes to complete discharge: 45 Discharge Summary Reason For Visit: SHORTNESS OF BREATH Current Active Problems Asthma exacerbation (Acute) COPD (chronic obstructive pulmonary disease) with acute bronchitis (Acute) Status asthmaticus (Acute) Condition: Fair - Instructions Referrals: Bere Tellez MD [Staff Physician] - Julián Mcdermott MD [Staff Physician] - - Home Medications Comprehensive Discharge Medication List: Ambulatory Orders Albuterol Sulfate [Proair Hfa -] 1 - 2 inh PO TID 12/05/14 - Discharge Referral Referred to [facility] No
[2017-07-08 11:00] VITALS: BP 134/82; PULSE 86
== END 2017-07-08 11:27 | disposition home or self-care (01) | DRG 192 ==
LOC: FER 17:42 → FM/S 20:13 → OBSVTOIN 07-06 13:36
PROVIDERS: ADMIT Internal Medicine; ATTEND Nurse Practitioner Family
DX: J44.0 Chronic obstructive pulmonary disease with (acute) lower respiratory infection (principal); I10 Essential (primary) hypertension; E78.00 Pure hypercholesterolemia, unspecified; I11.9 Hypertensive heart disease without heart failure; J20.9 Acute bronchitis, unspecified; Z87.891 Personal history of nicotine dependence
CPT/HCPCS: 36415; 71020-TC; 71250-TC; 80048; 80053; 83735; 84100; 85025; 87804; 93005; 94150; 94640; 99282-25; G0378

== ENCOUNTER 2018-05-27 11:11 | Inpatient (IN) | payer BC ==
--- NOTE | 2018-05-27 11:13 | PDOC ---
History of Present Illness - General Chief Complaint: Respiratory Distress Stated Complaint: DIFFICULTY BREATHING Time Seen by Provider: 05/27/18 11:12 - History of Present Illness Initial Comments: 63 yo with history of asthma and COPD presenting with shortness of breath. Patient states that she has felt this way since Tuesday. She reports that this feels similar to previous asthma/COPD exacerbations in the past, most recently in Jun 2017. Has had inpatient stays, but never been intubated. Patient endorses cough which is somewhat alleviated with mucinex. Patient has taken nebulizers with albuterol, symbicort, proair, and oral prednisone tablets (20, 30, 30mg) at home which have provided minimal relief. No hemoptysis, no recent surgical history, no recent mobilization, no hormone use, no history of DVT or PE. No fevers, chills, chest pain, or abdominal pain. Past History - Past Medical History Allergies/Adverse Reactions: Allergies Allergy/AdvReac Type Severity Reaction Status Date / Time No Known Drug Allergies Allergy Verified 05/27/18 11:16 Home Medications: Ambulatory Orders Albuterol 0.083% Nebulizer [place] [Ventolin 0.083% Nebulizer Soln -] 1 neb IN PRN PRN 05/27/18 Albuterol Sulfate [Proair Hfa] 1 puff IN PRN 05/27/18 Budesonide/Formeterol Fumarate [SYMBICORT 80/4.5mcg -] 1 puff IN DAILY 05/27/18 Asthma: Yes COPD: No HTN: Yes Hypercholesterolemia: Yes - Surgical History Abdominal Surgery: Yes Cholecystectomy: Yes Orthopedic Surgery: Yes (BACK SURGERY) - Suicide/Smoking/Psychosocial Hx Smoking History: Former smoker Have you smoked in the past 12 months: Yes Number of Cigarettes Smoked Daily: 1 If you are a former smoker, when did you quit?: 04/2014 'Breaking Loose' booklet given: 07/04/17 Hx Alcohol Use: No Drug/Substance Use Hx: No Substance Use Type: None Hx Substance Use Treatment: No Review of Systems - Review of Systems Comments:: Constitutional: no fever, no chills HEENT: no throat pain, no dysphagia Cardiovascular: no chest pain, no palpitations Respiratory: +cough, +shortness of breath Gastrointestinal: no abdominal pain, no nausea, no vomiting Genitourinary: no dysuria, no frequency Musculoskeletal: no myalgia, +chronic back pain Skin: no rash, no itching Neurologic: no headache, no dizziness *Physical Exam - Physical Exam Comments: General: Awake, alert, and fully oriented, in no acute distress Head: No signs of trauma Eyes: EOMI, sclera anicteric ENT: Moist mucus membranes Neck: Normal ROM, supple Lungs: Diffuse wheezes present bilaterally with inspiratory and expiratory rhonchi; patient able to complete full sentences Cardio: Regular rhythm, S1 and S2 present Abdomen: Soft, nontender. No guarding, no rebound, no masses Extremities: Normal range of motion, Distal pulses present SKIN: Warm, Dry, normal turgor Neurologic: Cranial nerves II through XII grossly intact. Normal speech ED Treatment Course - LABORATORY CBC & Chemistry Diagram: 05/27/18 11:53 05/27/18 11:53 Medical Decision Making - Medical Decision Making 63 yo with history of asthma and COPD presenting with shortness of breath. -DDX includes but not limited to asthma exacerbation, COPD, pneumonia, URI, PNA , Allergic reaction -Duonebs 3 amp: Patient with improved lung exam, but wheezes still present at bilateral lung bases. Another 3 amps ordered -Azithromycin 500 given for COPD exacerbation -CXR: "No acute pathology. Larger heart since prior study of 07/04/2017" -No leukocytosis or anemia -Will reassess: Patient again with improved lung exam but with continued inspiratory/expiratory rhonchi as well as wheezes at the left lung base. Upon walking the patient, she feels short of breath and satting at 92. -Mag 2g ordered, as well as another 3 duonebs. Will reassess. 05/27/18 13:45 Patient satting 92 at rest, and upon ambulation. Plan to admit. 05/27/18 15:[address] Mccall who accepted patient for admission under attending, Dr. Tellez. *DC/Admit/Observation/Transfer Diagnosis at time of Disposition: Asthma exacerbation, COPD (chronic obstructive pulmonary disease) - Discharge Dispostion Condition at time of disposition: Guarded Decision to Admit order: Yes - Referrals - Patient Instructions - Post Discharge Activity
[2018-05-27] MEDS ORDERED: ALBUTEROL SO4 2.5/IPRATROPIUM 0.5 INH SOL 3 ML VIAL.NEB. NEB ONE ×12 (11:26→13:50)
[2018-05-27] MEDS ORDERED: AZITHROMYCIN 500 MG TABLET PO ONE (12:04)
[2018-05-27] MEDS ORDERED: methylPREDNISolone NA SUCC 125 MG/2 ML VIAL IVPUSH ONE (12:05)
[2018-05-27] MEDS ORDERED: AZITHROMYCIN 500 MG TABLET ONE (12:08)
--- NOTE | 2018-05-27 12:19 | PDOC ---
Attending Attestation - Resident Resident Name: Delmy Souza - ED Attending Attestation I have performed the following: I have examined & evaluated the patient, The case was reviewed & discussed with the resident, I agree w/resident's findings & plan, Exceptions are as noted - HPI HPI: 05/27/18 12:16 63 F with COPD, asthma, HTN, HLD, presenting with SOB and cough x 3 days. Pt states that she feels like she is having a COPD flare. Denies CP. Denies F/C. States that she typically has these when she has viral URIs. Pt denies any leg swelling. - Physicial Exam PE: 05/27/18 12:18 GENERAL: Awake, alert, and fully oriented, in no acute distress. HEAD: No signs of trauma EYES: PERRLA, EOMI, sclera anicteric, conjunctiva clear ENT: Auricles normal inspection, hearing grossly normal, nares patent, oropharynx clear without exudates. Moist mucosa NECK: Nontender, no stepoffs, Normal ROM, supple, no lymphadenopathy, JVD, or masses LUNGS: + prolonged expiratory phase with expiratory wheezes HEART: Regular rate and rhythm, normal S1 and S2, no murmurs, rubs or gallops ABDOMEN: Soft, nontender, normoactive bowel sounds. No guarding, no rebound. No masses EXTREMITIES: Normal range of motion, no edema. No clubbing or cyanosis. No cords, erythema, or tenderness NEUROLOGICAL: Cranial nerves II through XII intact. 5/5 strength and sensation in all extremities, Normal speech, normal gait, normal cerebellar function SKIN: Warm, Dry, normal turgor, no rashes or lesions noted. - Medical Decision Making 05/27/18 12:19 63 F with COPD flare, likely 2/2 viral URI. Pt afebrile, HD stable in ED. Will r /o PNA. - CXR - Labs - Nebs, steroids, azithro
[2018-05-27] MEDS ORDERED: methylPREDNISolone NA SUCC 125 MG/2 ML VIAL ONE (12:26)
[2018-05-27 12:30] LABS: ALBUMIN 3.5 g/dl (3.5-5.0); ALK PHOS 72 U/L (32-92); ANION GAP 7 MMOL/L (8-16); BILIRUBIN,TOTAL 0.5 mg/dl (0.2-1.0); BLOOD UREA NITROGEN 12 mg/dl (7-18); CALCIUM 8.9 mg/dl (8.4-10.2); CHLORIDE 103 mmol/L (98-107); CO2 22 mmol/L (22-28); CREATININE 0.8 mg/dl (0.6-1.3); GLUCOSE,RANDOM 92 mg/dl (74-106); MAGNESIUM 1.8 mg/dL (1.8-2.4); POTASSIUM 4.4 mmol/L (3.5-5.1); SGOT/AST 26 U/L (10-42); SGPT/ALT 16 U/L (10-40); SODIUM 132 mmol/L (136-145); TOT PROT 7.3 g/dl (6.4-8.3)
[2018-05-27 13:01] LABS: BASO % 1.1 % (0-2.0); EOS % 4.3 % (0-4.5); HEMATOCRIT 45.8 % (32.4-45.2); LYMPH % 19.1 % (8-40); MCHC 32.8 g/dl (32.0-36.0); MEAN CELL VOLUME 85.2 fl (80-96); MEAN PLT VOLUME 9.6 fl (7.5-11.1); NEUT % 62.5 % (42.8-82.8); PLATELET COUNT 183 K/MM3 (134-434); RBC 5.38 M/mm3 (3.60-5.2); RDW 13.1 % (11.6-15.6); WHITE BLOOD COUNT 6.1 K/mm3 (4.0-10.8)
[2018-05-27] MEDS ORDERED: MAGNESIUM SULF 50% (8.12 MEQ/2 ML-1 GM VIAL) IVPB ONE (13:39)
[2018-05-27] MEDS ORDERED: MAGNESIUM 1GM/D5W - 2 GM/200 ML IVPB IVPB ONE (13:51)
--- NOTE | 2018-05-27 16:30 | PN ---
Progress Note (short form) - Note Progress Note: PULMONARY CONSULTATION DICTATED 05/27/18 IMP COPD/ASTHMA EXACERBATION HTN HLD PLAN IV STEROIDS INHALED BRONCHODILATORS O2 MONITOR PEAK FLOW PFTS OUTPATIENT YEARLY LOW DOSE CHEST CT FOR LUNG CANCER SCREENING DVT PROPHYLAXIS DR MARQUEZ Problem List - Problems (1) Asthma with COPD with exacerbation Code(s): J44.1 - CHRONIC OBSTRUCTIVE PULMONARY DISEASE W (ACUTE) EXACERBATION; J45.901 - UNSPECIFIED ASTHMA WITH (ACUTE) EXACERBATION (2) Asthma exacerbation Code(s): J45.901 - UNSPECIFIED ASTHMA WITH (ACUTE) EXACERBATION (3) COPD (chronic obstructive pulmonary disease) Code(s): J44.9 - CHRONIC OBSTRUCTIVE PULMONARY DISEASE, UNSPECIFIED (4) HTN (hypertension) Code(s): I10 - ESSENTIAL (PRIMARY) HYPERTENSION (5) Dyspnea Code(s): R06.00 - DYSPNEA, UNSPECIFIED (6) Shortness of breath Code(s): R06.02 - SHORTNESS OF BREATH
[2018-05-27] MEDS ORDERED: TIOTROPIUM BROMIDE 2.5 MCG (SPIRIVA) RESPIMAT INHALER IH SCH (16:45)
--- NOTE | 2018-05-27 16:46 | HP ---
CHIEF COMPLAINT: PCP: Dr. Tellez HISTORY OF PRESENT ILLNESS: 63 year-old female with a PMH significant for HTN, HLD, asthma and COPD. Presented to ED today with a complaint of SOB and cough x 4 days. She states this feels like previous asthma/COPD exacerbations. She has been treating at home with albuterol nebulizer treatments, Symbicort, ProAir and oral prednisone (20, 20, 30mg) with minimal relief. She denies fever, sweats, chills. No history of intubations. ER course was notable for: (1) BP 156/116-->135/85 (2) Flu negative Recent Travel: No PAST MEDICAL HISTORY: Hypertension Hyperlipidemia Asthma COPD PAST SURGICAL HISTORY: Cohlecystectomy Bilateral cataracts Kyphoplasty C-sections x 2 Social History: Smoking: Alcohol: Drugs: Family History: mother age 66-ovarian [place] father age 75, CVA had ministrokes prior to fatal CVA sister with heart problems 2 children-one with Turners syndrome Allergies No Known Drug Allergies Allergy (Verified 05/27/18 11:16) HOME MEDICATIONS: Home Medications Medication Instructions Recorded Albuterol 0.083% Nebulizer Maria [place] Carmen 1 neb IN PRN PRN 05/27/18 [Ventolin 0.083% Nebulizer Soln -] Albuterol Sulfate [Proair Hfa] 1 puff IN PRN 05/27/18 Budesonide/Formeterol Fumarate 1 puff IN DAILY 05/27/18 [SYMBICORT 80/4.5mcg -] REVIEW OF SYSTEMS CONSTITUTIONAL: Absent: fever, chills, diaphoresis, generalized weakness, malaise, loss of appetite, weight change HEENT: Absent: rhinorrhea, nasal congestion, throat pain, throat swelling, difficulty swallowing, mouth swelling, ear pain, eye pain, visual changes CARDIOVASCULAR: Absent: chest pain, syncope, palpitations, irregular heart rate, lightheadedness , peripheral edema RESPIRATORY: +cough, +shortness of breath, +chest tightness Absent: dyspnea with exertion, orthopnea, wheezing, stridor, hemoptysis GASTROINTESTINAL: Absent: abdominal pain, abdominal distension, nausea, vomiting, diarrhea, constipation, melena, hematochezia GENITOURINARY: Absent: dysuria, frequency, urgency, hesitancy, hematuria, flank pain, genital pain MUSCULOSKELETAL: Absent: myalgia, arthralgia, joint swelling, back pain, neck pain SKIN: Absent: rash, itching, pallor HEMATOLOGIC/IMMUNOLOGIC: Absent: easy bleeding, easy bruising, lymphadenopathy, frequent infections ENDOCRINE: Absent: unexplained weight gain, unexplained weight loss, heat intolerance, cold intolerance NEUROLOGIC: Absent: headache, focal weakness or paresthesias, dizziness, unsteady gait, seizure, mental status changes, bladder or bowel incontinence PSYCHIATRIC: Absent: anxiety, depression, suicidal or homicidal ideation, hallucinations. PHYSICAL EXAMINATION Vital Signs - 24 hr 05/27/18 05/27/18 05/27/18 11:12 12:22 13:48 Temperature 99 F 98.3 F Pulse Rate 60 Pulse Rate [ 60 83 Right Radial] Respiratory 20 22 H 20 Rate Blood Pressure 156/116 H Blood Pressure 135/85 107/77 [Right Arm] O2 Sat by Pulse 95 95 91 L Oximetry (%) 05/27/18 16:27 Temperature Pulse Rate Pulse Rate [ 80 Right Radial] Respiratory 20 Rate Blood Pressure Blood Pressure 124/79 [Right Arm] O2 Sat by Pulse 93 L Oximetry (%) GENERAL: Awake, alert, and fully oriented, in no acute distress. HEAD: Normal with no signs of trauma. EYES: Pupils equal, round and reactive to light, extraocular movements intact, sclera anicteric, conjunctiva clear. No lid lag. EARS, NOSE, THROAT: Ears normal, nares patent, oropharynx clear without exudates. Moist mucous membranes. NECK: Normal range of motion, supple without lymphadenopathy, JVD, or masses. LUNGS: Diffuse rhonci, poor air movement bilaterally HEART: Regular rate and rhythm, normal S1 and S2 ABDOMEN: Soft, nontender, not distended MUSCULOSKELETAL: Normal range of motion at all joints. No bony deformities or tenderness. No CVA tenderness. UPPER EXTREMITIES: 2+ pulses, warm, well-perfused. No cyanosis. No clubbing. No peripheral edema. LOWER EXTREMITIES: 2+ pulses, warm, well-perfused. No calf tenderness. No peripheral edema. NEUROLOGICAL: Cranial nerves II-XII intact. Normal speech. Laboratory Results - last 24 hr 05/27/18 05/27/18 11:53 11:53 WBC 6.1 RBC 5.38 H Hgb 15.0 Hct 45.8 H MCV 85.2 MCH 28.0 MCHC 32.8 RDW 13.1 Plt Count 183 MPV 9.6 Absolute Neuts (auto) 3.7 Neutrophils % 62.5 Lymphocytes % 19.1 Monocytes % 13.0 H Eosinophils % 4.3 Basophils % 1.1 Sodium 132 L Potassium 4.4 Chloride 103 Carbon Dioxide 22 Anion Gap 7 L BUN 12 Creatinine 0.8 Creat Clearance w eGFR > 60 Random Glucose 92 D Calcium 8.9 Magnesium 1.8 Total Bilirubin 0.5 AST 26 D ALT 16 D Alkaline Phosphatase 72 Total Protein 7.3 Albumin 3.5 ASSESSMENT/PLAN: 63 year-old female with a PMH significant for HTN, HLD, asthma and COPD. Presented to ED today with a complaint of SOB and cough x 4 days. Asthma/COPD exacerbation --albuterol nebs PRN --Symbicort, Spiriva --IV steroids 40 q6h --afebrile, no leukocytosis, observe off antibiotics --pulmonary following Hypertension --BP stable --not on anti-hypertensives Hyperlipidemia --not on statin therapy FEN Fluids: PO intake adequate Electrolytes: replete as indicated Nutrition: low sodium DVT prophylaxis: subq lovenox Dispo: continues to require observation. Full code. Visit type - Emergency Visit Emergency Visit: Yes ED Registration Date: 05/27/18 Care time: The patient presented to the Emergency Department on the above date and was hospitalized for further evaluation of their emergent condition. - New Patient This patient is new to me today: Yes Date on this admission: 05/27/18 - Critical Care Critical Care patient: No
[2018-05-27 18:12] VITALS: BMI 27.6
[2018-05-27] MEDS: TIOTROPIUM BROMIDE 2.5 MCG (SPIRIVA) RESPIMAT INHALER IH SCH (19:55)
[2018-05-27] MEDS: methylPREDNISolone NA SUCC 40 MG/1 ML VIAL IVPUSH SCH (21:41)
[2018-05-27] MEDS: BUDESONIDE/FORMETEROL FUMARATE 160/4.5 mcg INHALER IH SCH (21:41)
[2018-05-28] MEDS: methylPREDNISolone NA SUCC 40 MG/1 ML VIAL IVPUSH SCH ×4 (03:25→21:52)
--- NOTE | 2018-05-28 09:03 | PN ---
Progress Note, Physician History of Present Illness: pulmonary alert,feeling better coughless dyspneic,+ - Current Medication List Current Medications: Active Medications Albuterol Sulfate (Ventolin 0.083% Nebulizer Soln -) 1 amp NEB Q4H PRN PRN Reason: SHORT OF BREATH/WHEEZING Budesonide/Formoterol Fumarate (Symbicort 160/4.5mcg -) 2 puff IH BID [facility] Last Admin: 05/27/18 21:41 Dose: 2 puff Enoxaparin Sodium (Lovenox -) 40 mg SQ DAILY [facility] Methylprednisolone Sodium Succinate (Solu-Medrol -) 40 mg IVPUSH Q6H-IV [facility] Last Admin: 05/28/18 03:25 Dose: 40 mg Tiotropium [place] (Spiriva Respimat) 2 puff IH DAILY [facility] Last Admin: 05/27/18 19:55 Dose: 2 puff - Objective Vital Signs: Vital Signs Temperature 97.5 F L 05/28/18 06:00 Pulse Rate 83 05/28/18 06:00 Respiratory Rate 16 05/28/18 06:00 Blood Pressure 130/82 05/28/18 06:00 O2 Sat by Pulse Oximetry (%) 94 L 05/28/18 07:30 Constitutional: Yes: Well Nourished, Calm Eyes: Yes: WNL HENT: Yes: WNL Neck: Yes: WNL Cardiovascular: Yes: Regular Rate and Rhythm, S1, S2 Respiratory: Yes: Wheezes (less wheezes bilaterally) Gastrointestinal: Yes: Normal Bowel Sounds, Soft Extremities: Yes: WNL Edema: No Labs: CBC, BMP 05/27/18 11:53 05/27/18 11:53 Problem List - Problems (1) Asthma with COPD with exacerbation Code(s): J44.1 - CHRONIC OBSTRUCTIVE PULMONARY DISEASE W (ACUTE) EXACERBATION; J45.901 - UNSPECIFIED ASTHMA WITH (ACUTE) EXACERBATION (2) Asthma exacerbation Code(s): J45.901 - UNSPECIFIED ASTHMA WITH (ACUTE) EXACERBATION (3) COPD (chronic obstructive pulmonary disease) Code(s): J44.9 - CHRONIC OBSTRUCTIVE PULMONARY DISEASE, UNSPECIFIED (4) HTN (hypertension) Code(s): I10 - ESSENTIAL (PRIMARY) HYPERTENSION (5) Dyspnea Code(s): R06.00 - DYSPNEA, UNSPECIFIED (6) Shortness of breath Code(s): R06.02 - SHORTNESS OF BREATH Assessment/Plan IMP COPD/ASTHMA EXACERBATION HTN HLD PLAN IV STEROIDS SAME DOSE INHALED BRONCHODILATORS O2 MONITOR PEAK FLOW ZITHROMAX PFTS OUTPATIENT LOW DOSE CHEST CT DVT PROPHYLAXIS DR MARQUEZ Problem List - Problems (1) Asthma with COPD with exacerbation Code(s): J44.1 - CHRONIC OBSTRUCTIVE PULMONARY DISEASE W (ACUTE) EXACERBATION; J45.901 - UNSPECIFIED ASTHMA WITH (ACUTE) EXACERBATION (2) Asthma exacerbation Code(s): J45.901 - UNSPECIFIED ASTHMA WITH (ACUTE) EXACERBATION (3) COPD (chronic obstructive pulmonary disease) Code(s): J44.9 - CHRONIC OBSTRUCTIVE PULMONARY DISEASE, UNSPECIFIED (4) HTN (hypertension) Code(s): I10 - ESSENTIAL (PRIMARY) HYPERTENSION (5) Dyspnea Code(s): R06.00 - DYSPNEA, UNSPECIFIED (6) Shortness of breath Code(s): R06.02 - SHORTNESS OF BREATH
[2018-05-28 09:24] LABS: BASO % 0.7 % (0-2.0); HEMOGLOBIN 14.4 GM/dl (10.7-15.3); LYMPH % 9.1 % (8-40); MCH 27.6 pg (25.7-33.7); MCHC 31.9 g/dl (32.0-36.0); MEAN CELL VOLUME 86.3 fl (80-96); MEAN PLT VOLUME 9.5 fl (7.5-11.1); MONO % 5.4 % (3.8-10.2); NEUT % 84.8 % (42.8-82.8); PLATELET COUNT 180 K/MM3 (134-434); RBC 5.22 M/mm3 (3.60-5.2); RDW 13.2 % (11.6-15.6); WHITE BLOOD COUNT 6.3 K/mm3 (4.0-10.8)
[2018-05-28] MEDS ORDERED: PT OWN MED DRAWER 7, Y5N ONE (09:32)
[2018-05-28 09:47] LABS: ALBUMIN 3.4 g/dl (3.5-5.0); ALK PHOS 69 U/L (32-92); ANION GAP 11 MMOL/L (8-16); BILIRUBIN,TOTAL 0.6 mg/dl (0.2-1.0); BLOOD UREA NITROGEN 17 mg/dl (7-18); CALCIUM 9.1 mg/dl (8.4-10.2); CHLORIDE 101 mmol/L (98-107); CO2 23 mmol/L (22-28); CREATININE 0.7 mg/dl (0.6-1.3); GLUCOSE,RANDOM 134 mg/dl (74-106); MAGNESIUM 2.2 mg/dL (1.8-2.4); POTASSIUM 4.6 mmol/L (3.5-5.1); SGOT/AST 19 U/L (10-42); SGPT/ALT 16 U/L (10-40); SODIUM 135 mmol/L (136-145); TOT PROT 7.2 g/dl (6.4-8.3)
[2018-05-28] MEDS ORDERED: ENOXAPARIN NA (PORCINE) 40 MG/0.4 ML DISP.SYRIN SQ SCH (10:00)
[2018-05-28] MEDS ORDERED: AZITHROMYCIN IVPB 500 MG in DEXTROSE 5%-WATER - 250 ML IVPB SCH (10:00)
--- NOTE | 2018-05-28 10:17 | CONS ---
DATE OF CONSULTATION: 05/27/2018 REFERRING PHYSICIAN: Cayla Jackman NP The patient is a 63-year-old white female known to me from previous hospitalizations with a past medical history of asthma/COPD, hypertension, hyperlipidemia, longstanding history of tobacco use, approximately a little less than an pack a day for many years, quit 1 year ago, admitted to [facility] with a complaint of increasing shortness of breath, cough, and chest congestion. Patient states she was doing well until Tuesday of this week, when she started developing shortness of breath, cough, wheezing. She started increasing inhaled bronchodilators, using albuterol more frequently without any improvement. She started taking some oral prednisone at home, which offered minimal relief. Symptoms worsened last night when lying in bed. She felt severely short of breath, at which time she presented to the emergency room. In the ER, she was treated with inhaled bronchodilators and IV steroids with some clinical improvement. The patient denies any chest pain, nausea, vomiting, diaphoresis. Denies any fevers, chills. Denies any recent URI symptoms. There is no history of occupational exposures to chemicals or fumes. There is no history of recent travel. 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 REVIEW OF SYSTEMS: Positive cough, positive shortness of breath, positive wheezing. No chest pain, no palpitations, no abdominal pain. MEDICATIONS PRIOR TO ADMISSION: Albuterol; Symbicort; and ProAir. CURRENT MEDICATIONS: Not recorded yet. PHYSICAL EXAMINATION: General: The patient is a well-developed, well-nourished female, awake, alert, mildly dyspneic, but in no acute distress. Vital Signs: She is afebrile. O2 saturation 91% on room air, respiratory rate is 20, blood pressure is 107/77. HEENT: Normocephalic, atraumatic. Neck: Supple. Heart: Regular, S1, S2. Chest: Diffuse bilateral wheezes. Abdomen: Soft, bowel sounds are positive. Extremities: No cyanosis, edema. LABORATORIES: WBC is 6.1, hemoglobin 15, hematocrit 45.8 with a platelet count of 183,000. Sodium is 132, BUN 12, creatinine 0.8. CHEST X-RAY: No infiltrates and no effusions. IMPRESSION: 1. Chronic obstructive pulmonary disease/asthma exacerbation. 2. Hyperlipidemia. 3. Hypertension. PLAN: IV steroids; inhaled bronchodilators; supplemental O2; low-dose CT scan of the chest for lung cancer screening; monitor peak flow; PFTs outpatient. SCOTTY MARQUEZ M.D. [id number] MTDD
[2018-05-28] MEDS: BUDESONIDE/FORMETEROL FUMARATE 160/4.5 mcg INHALER IH SCH ×2 (10:19→21:53)
[2018-05-28] MEDS: TIOTROPIUM BROMIDE 2.5 MCG (SPIRIVA) RESPIMAT INHALER IH SCH (10:19)
[2018-05-28] MEDS: AZITHROMYCIN IVPB 500 MG/250 ML BAG IVPB SCH (10:20)
[2018-05-28] MEDS: ALBUTEROL SO4 0.083% IH SOL 2.5 MG/3 ML VIAL.NEB. NEB PRN ×3 (10:20→22:03)
--- NOTE | 2018-05-28 12:35 | PN ---
Physical Exam: SUBJECTIVE: Patient seen at bedside, having dry cough, not able to bring up sputum. Denies SOB at present time. OBJECTIVE: Vital Signs Period Temp Pulse Resp BP Sys/Vazquez Pulse Ox Last 24 Hr 97.5 F-98.3 F 80-118 16-24 107-130/69-82 91-94 GENERAL: The patient is awake, alert, and fully oriented, in no acute distress. HEAD: Normal with no signs of trauma. EYES: PERRL, extraocular movements intact, sclera anicteric, conjunctiva clear. No ptosis. ENT: Ears normal, nares patent, oropharynx clear without exudates, moist mucous membranes. NECK: Trachea midline, full range of motion, supple. LUNGS: wheezing, rhonci, ausculated, bilaterally HEART: Regular rate and rhythm, S1, S2 without murmur, rub or gallop. ABDOMEN: Soft, nontender, nondistended, normoactive bowel sounds, no guarding, no rebound, no hepatosplenomegaly, no masses. EXTREMITIES: 2+ pulses, warm, well-perfused, no edema. NEUROLOGICAL: Cranial nerves II through XII grossly intact. Normal speech, gait not observed. PSYCH: Normal mood, normal affect. SKIN: Warm, dry, normal turgor, no rashes or lesions noted Laboratory Results - last 24 hr 05/27/18 05/27/18 05/28/18 11:53 11:53 06:30 WBC 6.1 6.3 RBC 5.38 H 5.22 H Hgb 15.0 14.4 Hct 45.8 H 45.0 MCV 85.2 86.3 MCH 28.0 27.6 MCHC 32.8 31.9 L RDW 13.1 13.2 Plt Count 183 180 MPV 9.6 9.5 Absolute Neuts (auto) 3.7 5.4 Neutrophils % 62.5 84.8 H Lymphocytes % 19.1 9.1 Monocytes % 13.0 H 5.4 Eosinophils % 4.3 0.0 Basophils % 1.1 0.7 Sodium 132 L Potassium 4.4 Chloride 103 Carbon Dioxide 22 Anion Gap 7 L BUN 12 Creatinine 0.8 Creat Clearance w eGFR > 60 Random Glucose 92 D Calcium 8.9 Magnesium 1.8 Total Bilirubin 0.5 AST 26 D ALT 16 D Alkaline Phosphatase 72 Total Protein 7.3 Albumin 3.5 05/28/18 06:30 WBC RBC Hgb Hct MCV MCH MCHC RDW Plt Count MPV Absolute Neuts (auto) Neutrophils % Lymphocytes % Monocytes % Eosinophils % Basophils % Sodium 135 L Potassium 4.6 Chloride 101 Carbon Dioxide 23 Anion Gap 11 BUN 17 Creatinine 0.7 Creat Clearance w eGFR > 60 Random Glucose 134 H D Calcium 9.1 Magnesium 2.2 Total Bilirubin 0.6 AST 19 D ALT 16 Alkaline Phosphatase 69 Total Protein 7.2 Albumin 3.4 L Active Medications Generic Name Dose Route Start Last Admin Trade Name Freq PRN Reason Stop Dose Admin Albuterol Sulfate 1 amp 05/27/18 16:32 05/28/18 10:20 Ventolin 0.083% Nebulizer Soln - NEB 1 amp Q4H PRN Administration SHORT OF BREATH/WHEEZING Budesonide/Formoterol Fumarate 2 puff 05/27/18 22:00 05/28/18 10:19 Symbicort 160/4.5mcg - IH 2 puff BID [facility]A Administration Enoxaparin Sodium 40 mg 05/28/18 10:00 05/28/18 10:19 Lovenox - SQ 40 mg DAILY [facility] Administration Azithromycin 500 mg in 250 mls @ 250 mls/hr 05/28/18 10:00 05/28/18 10:20 Zithromax 500mg Ivpb (Pre-Docked) IVPB 250 mls/hr DAILY [facility] Administration Methylprednisolone Sodium Succinate 40 mg 05/27/18 21:00 05/28/18 09:11 Solu-Medrol - IVPUSH 40 mg Q6H-IV [facility] Administration Tiotropium [place] 2 puff 05/27/18 20:00 05/28/18 10:19 Spiriva Respimat IH 2 puff DAILY [facility] Administration ASSESSMENT/PLAN: 63 year-old female with a PMH significant for HTN, HLD, asthma and COPD. Presented to ED today with a complaint of SOB and cough x 4 days. Asthma/COPD exacerbation-improving --albuterol nebs PRN --Symbicort, Spiriva --IV steroids 40 q6h --afebrile, no leukocytosis, observe off antibiotics --pulmonary following Hypertension --BP stable --not on anti-hypertensives Hyperlipidemia --not on statin therapy FEN Fluids: PO intake adequate Electrolytes: replete as indicated Nutrition: low sodium DVT prophylaxis: subq lovenox Dispo: continues to require observation. Full code. Visit type - Emergency Visit Emergency Visit: Yes ED Registration Date: 05/27/18 Care time: The patient presented to the Emergency Department on the above date and was hospitalized for further evaluation of their emergent condition. - New Patient This patient is new to me today: Yes Date on this admission: 05/28/18 - Critical Care Critical Care patient: No
[2018-05-28] MEDS: guaiFENesin/D-METHORPHAN HB 1 EACH TAB.ER.12H PO SCH ×2 (18:01→21:57)
[2018-05-29] MEDS: methylPREDNISolone NA SUCC 40 MG/1 ML VIAL IVPUSH SCH ×3 (04:08→18:16)
[2018-05-29] MEDS ORDERED: METOPROLOL TARTRATE 5 MG/5 ML VIAL IVPUSH ONE (06:35)
--- NOTE | 2018-05-29 07:26 | PN ---
Progress Note, Physician History of Present Illness: pulmonary events noted episode afib,-cp,palpitations. pt feeling better,less dyspneic - Current Medication List Current Medications: Active Medications Albuterol Sulfate (Ventolin 0.083% Nebulizer Soln -) 1 amp NEB Q4H PRN PRN Reason: SHORT OF BREATH/WHEEZING Last Admin: 05/28/18 22:03 Dose: 1 amp Budesonide/Formoterol Fumarate (Symbicort 160/4.5mcg -) 2 puff IH BID [facility] Last Admin: 05/28/18 21:53 Dose: 2 puff Enoxaparin Sodium (Lovenox -) 40 mg SQ DAILY [facility] Last Admin: 05/28/18 10:19 Dose: 40 mg Guaifenesin (Mucinex Dm -) 1 tablet PO BID [facility] Last Admin: 05/28/18 21:57 Dose: Not Given Azithromycin (Zithromax 500mg Ivpb (Pre-Docked)) 500 mg in 250 mls @ 250 mls/ hr IVPB DAILY [facility] Last Admin: 05/28/18 10:20 Dose: 250 mls/hr Methylprednisolone Sodium Succinate (Solu-Medrol -) 40 mg IVPUSH Q6H-IV [facility] Last Admin: 05/29/18 04:08 Dose: 40 mg Tiotropium [place] (Spiriva Respimat) 2 puff IH DAILY [facility] Last Admin: 05/28/18 10:19 Dose: 2 puff - Objective Vital Signs: Vital Signs Temperature 98.2 F 05/29/18 06:00 Pulse Rate 156 H 05/29/18 06:50 Respiratory Rate 19 05/29/18 06:00 Blood Pressure 145/86 05/29/18 06:50 O2 Sat by Pulse Oximetry (%) 94 L 05/28/18 15:00 Constitutional: Yes: Well Nourished, Calm Eyes: Yes: WNL HENT: Yes: WNL Neck: Yes: WNL Cardiovascular: Yes: Pulse Irregular, S1, S2 Respiratory: Yes: Wheezes (aaron wheezes) Gastrointestinal: Yes: Normal Bowel Sounds, Soft Extremities: Yes: WNL Edema: No Labs: CBC, BMP Problem List - Problems (1) Asthma with COPD with exacerbation Code(s): J44.1 - CHRONIC OBSTRUCTIVE PULMONARY DISEASE W (ACUTE) EXACERBATION; J45.901 - UNSPECIFIED ASTHMA WITH (ACUTE) EXACERBATION (2) Asthma exacerbation Code(s): J45.901 - UNSPECIFIED ASTHMA WITH (ACUTE) EXACERBATION (3) COPD (chronic obstructive pulmonary disease) Code(s): J44.9 - CHRONIC OBSTRUCTIVE PULMONARY DISEASE, UNSPECIFIED (4) HTN (hypertension) Code(s): I10 - ESSENTIAL (PRIMARY) HYPERTENSION Qualifiers: Hypertension type: essential hypertension Qualified Code(s): I10 - Essential (primary) hypertension (5) Dyspnea Code(s): R06.00 - DYSPNEA, UNSPECIFIED (6) Shortness of breath Code(s): R06.02 - SHORTNESS OF BREATH Assessment/Plan IMP COPD/ASTHMA EXACERBATION SLOWLY IMPROVING HTN HLD PLAN IV STEROIDS SAME DOSE XOPENEX O2 MONITOR PEAK FLOW ZITHROMAX PFTS OUTPATIENT DVT PROPHYLAXIS DR MARQUEZ Problem List - Problems (1) Asthma with COPD with exacerbation Code(s): J44.1 - CHRONIC OBSTRUCTIVE PULMONARY DISEASE W (ACUTE) EXACERBATION; J45.901 - UNSPECIFIED ASTHMA WITH (ACUTE) EXACERBATION (2) Asthma exacerbation Code(s): J45.901 - UNSPECIFIED ASTHMA WITH (ACUTE) EXACERBATION (3) COPD (chronic obstructive pulmonary disease) Code(s): J44.9 - CHRONIC OBSTRUCTIVE PULMONARY DISEASE, UNSPECIFIED (4) HTN (hypertension) Code(s): I10 - ESSENTIAL (PRIMARY) HYPERTENSION (5) Dyspnea Code(s): R06.00 - DYSPNEA, UNSPECIFIED (6) Shortness of breath Code(s): R06.02 - SHORTNESS OF BREATH
[2018-05-29] MEDS ORDERED: dilTIAZem HCL 25 MG/5 ML - 5 ML VIAL IV PRN (07:37)
[2018-05-29] MEDS: dilTIAZem HCL 30 MG TABLET (FP) PO SCH ×3 (07:59→21:46)
[2018-05-29] MEDS: dilTIAZem HCL 50 MG/10 ML - 10 ML VIAL IVPUSH PRN (07:59)
--- NOTE | 2018-05-29 08:47 | CON.CARD ---
Consult Consult Specialty:: Cardiology Referred by:: Hospitalist Medicine Reason for Consultation:: Paroxysmal afib with RVR - History of Present Illness Chief Complaint: Dyspnea, cough and wheeze History of Present Illness: 63 year-old female with a PMH significant for HTN, HLD, asthma and COPD presented with complaint of SOB and cough preceded by URI c/w asthma/COPD exacerbations. She has been treating at home with albuterol nebulizer treatments , Symbicort, ProAir and oral prednisone (20, 20, 30mg) with minimal relief. She denies fever, sweats, chills. She's improving on BD, IV steroids, noted to have asymptomatic rapid afib without sxs of chest pain, palpitations, near or true syncope, orthopnea, PND or LE edema. - History Source History Provided By: Patient Limitations to Obtaining History: No Limitations - Past Medical History Cardio/Vascular: Yes: Hyperlipdemia. No: AFIB, [place] Pulmonary: Yes: Asthma, COPD. 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 Medications - Allergies Allergies/Adverse Reactions: Allergies Allergy/AdvReac Type Severity Reaction Status Date / Time No Known Drug Allergies Allergy Verified 05/27/18 11:16 - Home Medications Home Medications: Ambulatory Orders Albuterol 0.083% Nebulizer Maria Del Carmen [Ventolin 0.083% Nebulizer Soln -] 1 neb IN PRN PRN 05/27/18 Albuterol Sulfate [Proair Hfa] 1 puff IN PRN 05/27/18 Budesonide/Formeterol Fumarate [SYMBICORT 80/4.5mcg -] 1 puff IN DAILY 05/27/18 Escitalopram Oxalate [Lexapro -] 20 mg PO DAILY 05/29/18 Review of Systems - Review of Systems Respiratory: reports: Cough, SOB, Wheezing Vital Signs: Vital Signs Temperature 97.8 F 05/29/18 08:25 Pulse Rate 126 H 05/29/18 08:25 Respiratory Rate 18 05/29/18 08:25 Blood Pressure 120/96 05/29/18 08:25 O2 Sat by Pulse Oximetry (%) 96 05/29/18 07:00 Constitutional: Yes: No Distress, Calm Neck: Yes: Supple Respiratory: Yes: Regular, Diminished, On Nasal O2 Gastrointestinal: Yes: Normal Bowel Sounds, Soft Cardiovascular: Yes: Tachycardia, Pulse Irregular JVD: No Carotid Bruit: No Heart Sounds: Yes: S1, S2 Edema: No - Other Data Afub 131 PVC Imaging - Results Chest X-ray: Report Reviewed (NAD) Problem List - Problems (1) Paroxysmal atrial fibrillation with rapid ventricular response Code(s): I48.0 - PAROXYSMAL ATRIAL FIBRILLATION (2) Asthma with COPD with exacerbation Code(s): J44.1 - CHRONIC OBSTRUCTIVE PULMONARY DISEASE W (ACUTE) EXACERBATION; J45.901 - UNSPECIFIED ASTHMA WITH (ACUTE) EXACERBATION (3) HTN (hypertension) Code(s): I10 - ESSENTIAL (PRIMARY) HYPERTENSION Qualifiers: Hypertension type: essential hypertension Qualified Code(s): I10 - Essential (primary) hypertension (4) URI (upper respiratory infection) Code(s): J06.9 - ACUTE UPPER RESPIRATORY INFECTION, UNSPECIFIED Qualifiers: URI type: unspecified URI Qualified Code(s): J06.9 - Acute upper respiratory infection, unspecified Assessment/Plan 1. Paroxysmal afib with RVR [id number] 2. AE COPD, asthma preceded by URI 3. HTN 4. Hyperlipidemia P:1. Start Cardizem for rate-control, hope for spontaneous cardioversion with rate-control, otherwise elective cardioversion as outpatient after 2 month course of anticoagulation 2. Please minimize albuterol use and consider Xoponex, continue IV steroid taper , empiric abx course and antitussive agents 3. F/u echocardiogram and TSH 4. Change Lovenox to Eliquis 5 bid 5. Thank you for consultative opportunity
[2018-05-29 08:53] LABS: HEMATOCRIT 42.4 % (32.4-45.2); HEMOGLOBIN 14.5 GM/dl (10.7-15.3); LYMPH % 5.3 % (8-40); MCH 29.4 pg (25.7-33.7); MCHC 34.2 g/dl (32.0-36.0); MEAN CELL VOLUME 85.9 fl (80-96); MEAN PLT VOLUME 9.6 fl (7.5-11.1); MONO % 3.3 % (3.8-10.2); NEUT % 91.4 % (42.8-82.8); PLATELET COUNT 198 K/MM3 (134-434); RBC 4.94 M/mm3 (3.60-5.2); WHITE BLOOD COUNT 15.6 K/mm3 (4.0-10.8)
[2018-05-29] MEDS ORDERED: PT OWN MED DRAWER 7, Y5N ONE ×2 (09:16→21:11)
[2018-05-29] MEDS: guaiFENesin/D-METHORPHAN HB 1 EACH TAB.ER.12H PO SCH ×2 (09:28→21:46)
[2018-05-29] MEDS: AZITHROMYCIN IVPB 500 MG/250 ML BAG IVPB SCH (09:29)
[2018-05-29] MEDS: BUDESONIDE/FORMETEROL FUMARATE 160/4.5 mcg INHALER IH SCH ×2 (09:29→21:46)
[2018-05-29 09:32] LABS: ALBUMIN 3.4 g/dl (3.5-5.0); ALK PHOS 65 U/L (32-92); ANION GAP 11 MMOL/L (8-16); BILIRUBIN,TOTAL 0.4 mg/dl (0.2-1.0); BLOOD UREA NITROGEN 19 mg/dl (7-18); CALCIUM 9.1 mg/dl (8.4-10.2); CHLORIDE 104 mmol/L (98-107); CO2 23 mmol/L (22-28); CREATININE 0.6 mg/dl (0.6-1.3); GLUCOSE,RANDOM 119 mg/dl (74-106); POTASSIUM 4.3 mmol/L (3.5-5.1); SGOT/AST 29 U/L (10-42); SGPT/ALT 19 U/L (10-40); SODIUM 138 mmol/L (136-145)
[2018-05-29] MEDS: TIOTROPIUM BROMIDE 2.5 MCG (SPIRIVA) RESPIMAT INHALER IH SCH (09:33)
[2018-05-29] MEDS: APIXABAN 5 MG TABLET PO SCH ×2 (09:44→21:45)
[2018-05-29] MEDS ORDERED: LEVALBUTEROL HCL 0.31 MG/3 ML VIAL.NEB IH PRN (10:33)
[2018-05-29] MEDS ORDERED: ALBUTEROL SO4 0.083% IH SOL 2.5 MG/3 ML VIAL.NEB. NEB PRN (10:41)
--- NOTE | 2018-05-29 10:51 | PN ---
Physical Exam: SUBJECTIVE: Patient seen and examined. Occasionally experiencing palpitations. No chest pain, no lightheadedness. OBJECTIVE: Vital Signs Period Temp Pulse Resp BP Sys/Vazquez Pulse Ox Last 24 Hr 97.5 F-98.2 F 83-156 18-22 113-150/74-96 94-96 GENERAL: Awake, alert, and fully oriented, in no acute distress. LUNGS: Better air movement, diffuse expiratory wheezing HEART: Irregular rate and rhythm, normal S1 and S2 ABDOMEN: Soft, nontender, not distended MUSCULOSKELETAL: Normal range of motion at all joints. No bony deformities or tenderness. No CVA tenderness. UPPER EXTREMITIES: 2+ pulses, warm, well-perfused. No cyanosis. No clubbing. No peripheral edema. LOWER EXTREMITIES: 2+ pulses, warm, well-perfused. No calf tenderness. No peripheral edema. NEUROLOGICAL: Cranial nerves II-XII intact. Normal speech. Laboratory Results - last 24 hr 05/29/18 05/29/18 08:24 08:24 WBC 15.6 H RBC 4.94 Hgb 14.5 Hct 42.4 MCV 85.9 MCH 29.4 MCHC 34.2 RDW 13.0 Plt Count 198 MPV 9.6 Absolute Neuts (auto) 14.3 Neutrophils % 91.4 H Lymphocytes % 5.3 L Monocytes % 3.3 L Eosinophils % 0.0 Basophils % 0.0 Sodium 138 Potassium 4.3 Chloride 104 Carbon Dioxide 23 Anion Gap 11 BUN 19 H Creatinine 0.6 Creat Clearance w eGFR > 60 Random Glucose 119 H Calcium 9.1 Magnesium 2.0 Total Bilirubin 0.4 AST 29 D ALT 19 Alkaline Phosphatase 65 Total Protein 7.0 Albumin 3.4 L Active Medications Generic Name Dose Route Start Last Admin Trade Name Freq PRN Reason Stop Dose Admin Apixaban 5 mg 05/29/18 10:00 05/29/18 09:44 Eliquis - PO 5 mg BID CORA Administration Budesonide/Formoterol Fumarate 2 puff 05/27/18 22:00 05/29/18 09:29 Symbicort 160/4.5mcg - IH 2 puff BID CORA Administration Diltiazem HCl 30 mg 05/29/18 08:00 05/29/18 07:59 Cardizem - PO 30 mg TID [facility] Administration Diltiazem HCl 10 mg 05/29/18 07:40 05/29/18 07:59 Cardizem Injection - IVPUSH 10 mg Q4H PRN Administration FOR HR >110 Guaifenesin 1 tablet 05/28/18 13:45 05/29/18 09:28 Mucinex Dm - PO 1 tablet BID [facility] Administration Azithromycin 500 mg in 250 mls @ 250 mls/hr 05/28/18 10:00 05/29/18 09:29 Zithromax 500mg Ivpb (Pre-Docked) IVPB 250 mls/hr DAILY [facility] Administration Levalbuterol HCl 0.31 mg 05/29/18 10:33 Xopenex IH Q8H PRN ASTHMA Methylprednisolone Sodium Succinate 40 mg 05/29/18 18:00 Solu-Medrol - IVPUSH Q8H-IV CORA Tiotropium [place] 2 puff 05/27/18 20:00 05/29/18 09:33 Spiriva Respimat IH 2 puff DAILY [facility] Administration ASSESSMENT/PLAN 63 year-old female with a PMH significant for HTN, HLD, asthma and COPD. Admitted for COPD exacerbation. Hospital course complicated by new onset afib with RVR. Asthma/COPD exacerbation --levalbuterol nebs PRN --Symbicort, Spiriva --IV steroids 40 q6h --afebrile, no leukocytosis, observe off antibiotics --pulmonary following New onset atrial fibrillation with RVR --[id number] --start PO cardizem for rate control; cardizem IVP PRN --start Eliquis 5mg BID Hypertension --BP stable --not on anti-hypertensives Hyperlipidemia --not on statin therapy FEN Fluids: PO intake adequate Electrolytes: replete as indicated Nutrition: low sodium DVT prophylaxis: subq lovenox Dispo: continues to require observation. Full code.b Visit type - Emergency Visit Emergency Visit: Yes ED Registration Date: 05/28/18 Care time: The patient presented to the Emergency Department on the above date and was hospitalized for further evaluation of their emergent condition. - New Patient This patient is new to me today: No - Critical Care Critical Care patient: No
[2018-05-29] MEDS: ESCITALOPRAM OXALATE 20 MG TABLET (FP) PO SCH (15:00)
--- NOTE | 2018-05-29 17:51 | ECHO ---
Name: NATHANELTON GORE Exam:Adult Echocardiogram Study Date: 05/29/2018 01:46 PM Age: 63 yrs Reason For Study: ATRIAL FIBRILLATION Height: 60 in Weight: 141 lb BSA: 1.6 m2 MMode/2D Measurements & Calculations IVSd: 0.92 cm Ao root diam: 2.9 cm LVIDd: 5.2 cm LA dimension: 4.2 cm LVIDs: 3.8 cm LVPWd: 0.91 cm EDV(Teich): 127.3 ml ESV(Teich): 60.7 ml Doppler Measurements & Calculations MV E max rubio: 107.1 cm/sec MV A max rubio: 22.3 cm/sec MV dec slope: 859.7 cm/sec2 MV E/A: 4.8 Ao V2 max: 157.8 cm/sec LV V1 max P.6 mmHg Ao max P.0 mmHg LV V1 max: 80.1 cm/sec MR max rubio: 474.0 cm/sec TR max rubio: 211.3 cm/sec MR max P.9 mmHg TR max P.9 mmHg Procedure A complete two-dimensional transthoracic echocardiogram was performed (2D, M-mode, Doppler and color flow Doppler). Left Ventricle The left ventricle is normal in size. Left ventricular systolic function is normal. Ejection Fraction = 55- 60%. TDI reveals mildly impaired relaxation with elevated filling pressure (E/E' 17). No regional wal l motion abnormalities noted. Right Ventricle The right ventricle is normal size. The right ventricular systolic function is normal. RV systolic TD I is 14 cm/s. Atria The left atrium is mildly dilated. Right atrial size is normal. Mitral Valve There is mild mitral annular calcification. There is moderate mitral regurgitation. Tricuspid Valve The tricuspid valve is normal in structure and function. There is moderate tricuspid regurgitation. P ulmonary artery systolic pressure is at least 23 mmHg assuming RA pressure is estimated 3 mmHg. Aortic Valve There is mild aortic sclerosis.;. Mild aortic regurgitation. Pulmonic Valve The pulmonic valve is not well visualized. Great Vessels The aortic root is normal size. Pericardium/Pleura There is no pericardial effusion. Interpretation Summary The left ventricle is normal in size. Left ventricular systolic function is normal. No regional wall motion abnormalities noted. Ejection Fraction = 55-60%. TDI reveals mildly impaired relaxation with elevated filling pressure (E/E' 17) The right ventricular systolic function is normal. The left atrium is mildly dilated. Right atrial size is normal. There is mild mitral annular calcification. There is moderate mitral regurgitation. There is moderate tricuspid regurgitation. Pulmonary artery systolic pressure is at least 23 mmHg assuming RA pressure is estimated 3 mmHg There is mild aortic sclerosis. Mild aortic regurgitation. There is no pericardial effusion. Previous study is not available for comparison William Saxena MD 05/29/2018 05:50 PM
--- NOTE | 2018-05-29 18:28 | EKG ---
Test Reason : Blood Pressure : / mmHG Vent. Rate : 131 BPM Atrial Rate : 097 BPM P-R Int : 000 ms QRS Dur : 086 ms QT Int : 332 ms P-R-T Axes : 000 -23 023 degrees QTc Int : 490 ms ATRIAL FIBRILLATION WITH RAPID VENTRICULAR RESPONSE WITH ABERRANT COMPLEXES CANNOT RULE OUT ANTERIOR INFARCT , AGE UNDETERMINED ABNORMAL ECG WHEN COMPARED WITH ECG OF 04-JUL-2017 18:57, ATRIAL FIBRILLATION HAS REPLACED SINUS RHYTHM VENT. RATE HAS INCREASED BY 48 BPM Confirmed by BENTLEY LOPZE MD ([id number]) on 05/29/2018 6:28:10 PM Referred By: RENITA Confirmed By:BENTLEY LOPEZ MD
[2018-05-30] MEDS: methylPREDNISolone NA SUCC 40 MG/1 ML VIAL IVPUSH SCH ×4 (02:00→20:04)
[2018-05-30] MEDS: dilTIAZem HCL 30 MG TABLET (FP) PO SCH ×3 (06:00→21:42)
--- NOTE | 2018-05-30 07:09 | PN ---
Progress Note, Physician History of Present Illness: PULMONARY ALERT,C/O INCREASED CHEST TIGHTNESS,SOB,COUGH TODAY - Current Medication List Current Medications: Active Medications Apixaban (Eliquis -) 5 mg PO BID [facility] Last Admin: 05/29/18 21:45 Dose: 5 mg Budesonide/Formoterol Fumarate (Symbicort 160/4.5mcg -) 2 puff IH BID [facility] Last Admin: 05/29/18 21:46 Dose: 2 puff Diltiazem HCl (Cardizem -) 30 mg PO TID [facility] Last Admin: 05/30/18 06:00 Dose: 30 mg Diltiazem HCl (Cardizem Injection -) 10 mg IVPUSH Q4H PRN PRN Reason: FOR HR >110 Last Admin: 05/29/18 07:59 Dose: 10 mg Escitalopram Oxalate (Lexapro -) 20 mg PO DAILY [facility] Last Admin: 05/29/18 15:00 Dose: 20 mg Guaifenesin (Mucinex Dm -) 1 tablet PO BID [facility] Last Admin: 05/29/18 21:46 Dose: 1 tablet Levalbuterol HCl (Xopenex) 0.31 mg IH Q8H PRN PRN Reason: ASTHMA Methylprednisolone Sodium Succinate (Solu-Medrol -) 40 mg IVPUSH Q8H-IV [facility] Last Admin: 05/30/18 02:00 Dose: 40 mg Tiotropium [place] (Spiriva Respimat) 2 puff IH DAILY [facility] Last Admin: 05/29/18 09:33 Dose: 2 puff - Objective Vital Signs: Vital Signs Temperature 97.9 F 05/30/18 06:00 Pulse Rate 118 H 05/30/18 06:00 Respiratory Rate 18 05/30/18 06:00 Blood Pressure 137/81 05/30/18 06:00 O2 Sat by Pulse Oximetry (%) 92 L 05/30/18 06:00 Constitutional: Yes: Well Nourished, Other (DYSPNEIC) Eyes: Yes: WNL HENT: Yes: WNL Neck: Yes: WNL Cardiovascular: Yes: Regular Rate and Rhythm, S1, S2 Respiratory: Yes: Wheezes (DIFFEUSE CHATA BILATERAL WHEEZES) Gastrointestinal: Yes: Normal Bowel Sounds, Soft Extremities: Yes: WNL Edema: No Labs: CBC, BMP 05/29/18 08:24 05/29/18 08:24 Problem List - Problems (1) Asthma with COPD with exacerbation Code(s): J44.1 - CHRONIC OBSTRUCTIVE PULMONARY DISEASE W (ACUTE) EXACERBATION; J45.901 - UNSPECIFIED ASTHMA WITH (ACUTE) EXACERBATION (2) Asthma exacerbation Code(s): J45.901 - UNSPECIFIED ASTHMA WITH (ACUTE) EXACERBATION (3) COPD (chronic obstructive pulmonary disease) Code(s): J44.9 - CHRONIC OBSTRUCTIVE PULMONARY DISEASE, UNSPECIFIED (4) HTN (hypertension) Code(s): I10 - ESSENTIAL (PRIMARY) HYPERTENSION Qualifiers: Hypertension type: essential hypertension Qualified Code(s): I10 - Essential (primary) hypertension (5) Dyspnea Code(s): R06.00 - DYSPNEA, UNSPECIFIED (6) Shortness of breath Code(s): R06.02 - SHORTNESS OF BREATH Assessment/Plan IMP COPD/ASTHMA EXACERBATION HTN HLD PLAN IV STEROIDS INCREASE TO Q6H XOPENEX O2 MONITOR PEAK FLOW ZITHROMAX PFTS OUTPATIENT DVT PROPHYLAXIS DR MARQUEZ Problem List - Problems (1) Asthma with COPD with exacerbation Code(s): J44.1 - CHRONIC OBSTRUCTIVE PULMONARY DISEASE W (ACUTE) EXACERBATION; J45.901 - UNSPECIFIED ASTHMA WITH (ACUTE) EXACERBATION (2) Asthma exacerbation Code(s): J45.901 - UNSPECIFIED ASTHMA WITH (ACUTE) EXACERBATION (3) COPD (chronic obstructive pulmonary disease) Code(s): J44.9 - CHRONIC OBSTRUCTIVE PULMONARY DISEASE, UNSPECIFIED (4) HTN (hypertension) Code(s): I10 - ESSENTIAL (PRIMARY) HYPERTENSION (5) Dyspnea Code(s): R06.00 - DYSPNEA, UNSPECIFIED (6) Shortness of breath Code(s): R06.02 - SHORTNESS OF BREATH
[2018-05-30] MEDS ORDERED: PT OWN MED DRAWER 7, Y5N ONE ×2 (09:11→21:14)
--- NOTE | 2018-05-30 09:59 | PN ---
Progress Note, Physician Chief Complaint: Events noted Complains of intermittent SOB and cough History of Present Illness: Patient was seen and examined. Awake and alert. Chart was reviewed Denies chest pain, but still with mild wheezing, cough intermittently and SOB Remains in AF with RVR - Current Medication List Current Medications: Active Medications Apixaban (Eliquis -) 5 mg PO BID [facility] Last Admin: 05/29/18 21:45 Dose: 5 mg Budesonide/Formoterol Fumarate (Symbicort 160/4.5mcg -) 2 puff IH BID [facility] Last Admin: 05/29/18 21:46 Dose: 2 puff Diltiazem HCl (Cardizem -) 30 mg PO TID [facility] Last Admin: 05/30/18 06:00 Dose: 30 mg Diltiazem HCl (Cardizem Injection -) 10 mg IVPUSH Q4H PRN PRN Reason: FOR HR >110 Last Admin: 05/29/18 07:59 Dose: 10 mg Escitalopram Oxalate (Lexapro -) 20 mg PO DAILY [facility] Last Admin: 05/29/18 15:00 Dose: 20 mg Guaifenesin (Mucinex Dm -) 1 tablet PO BID [facility] Last Admin: 05/29/18 21:46 Dose: 1 tablet Levalbuterol HCl (Xopenex) 0.31 mg IH Q8H PRN PRN Reason: ASTHMA Methylprednisolone Sodium Succinate (Solu-Medrol -) 40 mg IVPUSH Q8H-IV [facility] Last Admin: 05/30/18 02:00 Dose: 40 mg Tiotropium [place] (Spiriva Respimat) 2 puff IH DAILY [facility] Last Admin: 05/29/18 09:33 Dose: 2 puff - Objective Vital Signs: Vital Signs Temperature 97.9 F 05/30/18 06:00 Pulse Rate 118 H 05/30/18 06:00 Respiratory Rate 18 05/30/18 06:00 Blood Pressure 137/81 05/30/18 06:00 O2 Sat by Pulse Oximetry (%) 92 L 05/30/18 06:00 Eyes: Yes: PERRL HENT: Yes: Atraumatic Neck: Yes: Supple Cardiovascular: Yes: Pulse Irregular, S1, S2 Respiratory: Yes: Wheezes Gastrointestinal: Yes: Normal Bowel Sounds, Soft. No: Tenderness Edema: No Labs: CBC, BMP 05/29/18 08:24 11/19/18 08:24 Problem List - Problems (1) Hypercholesterolemia Code(s): E78.00 - PURE HYPERCHOLESTEROLEMIA, UNSPECIFIED (2) Paroxysmal atrial fibrillation with rapid ventricular response Code(s): I48.0 - PAROXYSMAL ATRIAL FIBRILLATION (3) Shortness of breath Code(s): R06.02 - SHORTNESS OF BREATH (4) COPD (chronic obstructive pulmonary disease) with acute bronchitis Code(s): J44.0 - CHRONIC OBSTRUCTIVE PULMON DISEASE W ACUTE LOWER RESP INFCT; J20.9 - ACUTE BRONCHITIS, UNSPECIFIED (5) HTN (hypertension) Code(s): I10 - ESSENTIAL (PRIMARY) HYPERTENSION Qualifiers: Hypertension type: essential hypertension Qualified Code(s): I10 - Essential (primary) hypertension (6) URI (upper respiratory infection) Code(s): J06.9 - ACUTE UPPER RESPIRATORY INFECTION, UNSPECIFIED Qualifiers: URI type: unspecified URI Qualified Code(s): J06.9 - Acute upper respiratory infection, unspecified Assessment/Plan 1. COPD exacerbation and URI 2. PAF with RVR and [id number] score of 2 3. HTN 4. Hyperlipidemia 5. Mitral valve and tricuspid valve regurgitations PLAN: 1. Up-titrate Cardizem for better rate control 2. Continue Eliquis 5 mg BID 3. IV steroid taper, bronchodilator but with caution and continue empiric antibiotic 4. Echocardiography reviewed 5. If remains in AF, may consider synchronized cardioversion (preferably as outpatient once COPD is fully improved) and patient is adequately anticoagulated Further plans are to follow William Saxena MD
[2018-05-30] MEDS: TIOTROPIUM BROMIDE 2.5 MCG (SPIRIVA) RESPIMAT INHALER IH SCH (10:19)
[2018-05-30] MEDS: guaiFENesin/D-METHORPHAN HB 1 EACH TAB.ER.12H PO SCH ×2 (10:21→21:43)
[2018-05-30] MEDS: BUDESONIDE/FORMETEROL FUMARATE 160/4.5 mcg INHALER IH SCH ×2 (10:21→21:43)
[2018-05-30] MEDS: APIXABAN 5 MG TABLET PO SCH ×2 (10:21→21:43)
[2018-05-30] MEDS: ESCITALOPRAM OXALATE 20 MG TABLET (FP) PO SCH (10:21)
--- NOTE | 2018-05-30 13:33 | PN ---
Physical Exam: SUBJECTIVE: Patient seen and examined OBJECTIVE: Vital Signs Period Temp Pulse Resp BP Sys/Vazquez Pulse Ox Last 24 Hr 97.4 F-98.1 F 101-121 18-20 124-137/68-95 92-94 GENERAL: Awake, alert, and fully oriented, in no acute distress. LUNGS: Better air movement, diffuse expiratory wheezing HEART: Irregular rate and rhythm, normal S1 and S2 ABDOMEN: Soft, nontender, not distended MUSCULOSKELETAL: Normal range of motion at all joints. No bony deformities or tenderness. No CVA tenderness. UPPER EXTREMITIES: 2+ pulses, warm, well-perfused. No cyanosis. No clubbing. No peripheral edema. LOWER EXTREMITIES: 2+ pulses, warm, well-perfused. No calf tenderness. No peripheral edema. NEUROLOGICAL: Cranial nerves II-XII intact. Normal speech. Laboratory Results - last 24 hr 05/30/18 07:36 TSH 0.29 L Active Medications Generic Name Dose Route Start Last Admin Trade Name Freq PRN Reason Stop Dose Admin Apixaban 5 mg 05/29/18 10:00 05/30/18 10:21 Eliquis - PO 5 mg BID [facility]A Administration Budesonide/Formoterol Fumarate 2 puff 05/27/18 22:00 05/30/18 10:21 Symbicort 160/4.5mcg - IH 2 puff BID [facility] Administration Diltiazem HCl 10 mg 05/29/18 07:40 05/29/18 07:59 Cardizem Injection - IVPUSH 10 mg Q4H PRN Administration FOR HR >110 Diltiazem HCl 60 mg 05/30/18 10:05 Cardizem - PO TID CORA Escitalopram Oxalate 20 mg 05/29/18 14:30 05/30/18 10:21 Lexapro - PO 20 mg DAILY [facility] Administration Guaifenesin 1 tablet 05/28/18 13:45 05/30/18 10:21 Mucinex Dm - PO 1 tablet BID [facility] Administration Levalbuterol HCl 0.31 mg 05/29/18 10:33 Xopenex IH Q8H PRN ASTHMA Methylprednisolone Sodium Succinate 40 mg 05/30/18 15:00 Solu-Medrol - IVPUSH Q6H-IV [facility] Tiotropium [place] 2 puff 05/27/18 20:00 05/30/18 10:19 Spiriva Respimat IH 2 puff DAILY [facility] Administration ASSESSMENT/PLAN: 63 year-old female with a PMH significant for HTN, HLD, asthma and COPD. Admitted for COPD exacerbation. Hospital course complicated by new onset afib with RVR. Asthma/COPD exacerbation --levalbuterol nebs PRN --Symbicort, Spiriva --IV steroids 40 q6h --afebrile, no leukocytosis, observe off antibiotics --pulmonary following New onset atrial fibrillation with RVR --[id number] --increase PO cardizem to 60mg TID for better rate control; cardizem IVP PRN --continue Eliquis 5mg BID Hypertension --BP stable --not on anti-hypertensives Hyperlipidemia --not on statin therapy FEN Fluids: PO intake adequate Electrolytes: replete as indicated Nutrition: low sodium DVT prophylaxis: subq lovenox Dispo: continues to require observation. Full code.b Visit type - Emergency Visit Emergency Visit: Yes ED Registration Date: 05/28/18 Care time: The patient presented to the Emergency Department on the above date and was hospitalized for further evaluation of their emergent condition. - New Patient This patient is new to me today: No - Critical Care Critical Care patient: No
[2018-05-31] MEDS: methylPREDNISolone NA SUCC 40 MG/1 ML VIAL IVPUSH SCH ×3 (02:07→21:11)
[2018-05-31] MEDS: dilTIAZem HCL 30 MG TABLET (FP) PO SCH ×4 (06:18→22:59)
--- NOTE | 2018-05-31 07:36 | PN ---
Progress Note, Physician - Current Medication List Current Medications: Active Medications Apixaban (Eliquis -) 5 mg PO BID [facility] Last Admin: 05/30/18 21:43 Dose: 5 mg Budesonide/Formoterol Fumarate (Symbicort 160/4.5mcg -) 2 puff IH BID [facility] Last Admin: 05/30/18 21:43 Dose: 2 puff Diltiazem HCl (Cardizem Injection -) 10 mg IVPUSH Q4H PRN PRN Reason: FOR HR >110 Last Admin: 05/29/18 07:59 Dose: 10 mg Diltiazem HCl (Cardizem -) 60 mg PO TID [facility] Last Admin: 05/31/18 06:18 Dose: 60 mg Escitalopram Oxalate (Lexapro -) 20 mg PO DAILY [facility] Last Admin: 05/30/18 10:21 Dose: 20 mg Guaifenesin (Mucinex Dm -) 1 tablet PO BID [facility] Last Admin: 05/30/18 21:43 Dose: 1 tablet Levalbuterol HCl (Xopenex) 0.31 mg IH Q8H PRN PRN Reason: ASTHMA Methylprednisolone Sodium Succinate (Solu-Medrol -) 40 mg IVPUSH Q8H-IV [facility] Tiotropium [place] (Spiriva Respimat) 2 puff IH DAILY [facility] Last Admin: 05/30/18 10:19 Dose: 2 puff - Objective Vital Signs: Vital Signs Temperature 97.9 F 05/31/18 06:00 Pulse Rate 83 05/31/18 06:00 Respiratory Rate 18 05/31/18 06:00 Blood Pressure 143/99 05/31/18 06:00 O2 Sat by Pulse Oximetry (%) 96 05/31/18 06:00 Problem List - Problems (1) Asthma with COPD with exacerbation Code(s): J44.1 - CHRONIC OBSTRUCTIVE PULMONARY DISEASE W (ACUTE) EXACERBATION; J45.901 - UNSPECIFIED ASTHMA WITH (ACUTE) EXACERBATION (2) Asthma exacerbation Code(s): J45.901 - UNSPECIFIED ASTHMA WITH (ACUTE) EXACERBATION (3) COPD (chronic obstructive pulmonary disease) Code(s): J44.9 - CHRONIC OBSTRUCTIVE PULMONARY DISEASE, UNSPECIFIED (4) HTN (hypertension) Code(s): I10 - ESSENTIAL (PRIMARY) HYPERTENSION Qualifiers: Hypertension type: essential hypertension Qualified Code(s): I10 - Essential (primary) hypertension (5) Dyspnea Code(s): R06.00 - DYSPNEA, UNSPECIFIED (6) Shortness of breath Code(s): R06.02 - SHORTNESS OF BREATH Assessment/Plan IMP COPD/ASTHMA EXACERBATION HTN HLD PLAN IV STEROIDS INCREASE TO Q6H XOPENEX O2 MONITOR PEAK FLOW ZITHROMAX PFTS OUTPATIENT DVT PROPHYLAXIS DR MARQUEZ Problem List - Problems (1) Asthma with COPD with exacerbation Code(s): J44.1 - CHRONIC OBSTRUCTIVE PULMONARY DISEASE W (ACUTE) EXACERBATION; J45.901 - UNSPECIFIED ASTHMA WITH (ACUTE) EXACERBATION (2) Asthma exacerbation Code(s): J45.901 - UNSPECIFIED ASTHMA WITH (ACUTE) EXACERBATION (3) COPD (chronic obstructive pulmonary disease) Code(s): J44.9 - CHRONIC OBSTRUCTIVE PULMONARY DISEASE, UNSPECIFIED (4) HTN (hypertension) Code(s): I10 - ESSENTIAL (PRIMARY) HYPERTENSION (5) Dyspnea Code(s): R06.00 - DYSPNEA, UNSPECIFIED (6) Shortness of breath Code(s): R06.02 - SHORTNESS OF BREATH
[2018-05-31] MEDS: APIXABAN 5 MG TABLET PO SCH ×2 (09:42→21:45)
[2018-05-31] MEDS: ESCITALOPRAM OXALATE 20 MG TABLET (FP) PO SCH (09:42)
[2018-05-31] MEDS: guaiFENesin/D-METHORPHAN HB 1 EACH TAB.ER.12H PO SCH ×2 (09:43→21:45)
[2018-05-31] MEDS: TIOTROPIUM BROMIDE 2.5 MCG (SPIRIVA) RESPIMAT INHALER IH SCH (09:43)
[2018-05-31] MEDS: BUDESONIDE/FORMETEROL FUMARATE 160/4.5 mcg INHALER IH SCH ×2 (09:45→21:45)
[2018-05-31] MEDS ORDERED: methylPREDNISolone NA SUCC 40 MG/1 ML VIAL IVPUSH SCH (10:00)
--- NOTE | 2018-05-31 14:39 | PN ---
Physical Exam: SUBJECTIVE: Patient seen and examined sitting on top of bed. Chest still feels tight and gets SOB walking to bathroom. Pre post done, 97% on room air with ambulation. OBJECTIVE: Vital Signs Period Temp Pulse Resp BP Sys/Vazquez Pulse Ox Last 24 Hr 97.7 F-98.5 F 68-111 16-20 128-159/76-99 93-96 GENERAL: Awake, alert, and fully oriented, in no acute distress. LUNGS: diffuse expiratory wheezing, poor air movement again today HEART: Irregular rate and rhythm, normal S1 and S2 ABDOMEN: Soft, nontender, not distended MUSCULOSKELETAL: Normal range of motion at all joints. No bony deformities or tenderness. No CVA tenderness. UPPER EXTREMITIES: 2+ pulses, warm, well-perfused. No cyanosis. No clubbing. No peripheral edema. LOWER EXTREMITIES: 2+ pulses, warm, well-perfused. No calf tenderness. No peripheral edema. NEUROLOGICAL: Cranial nerves II-XII intact. Normal speech. Active Medications Generic Name Dose Route Start Last Admin Trade Name Freq PRN Reason Stop Dose Admin Apixaban 5 mg 05/29/18 10:00 05/31/18 09:42 Eliquis - PO 5 mg BID [facility] Administration Budesonide/Formoterol Fumarate 2 puff 05/27/18 22:00 05/31/18 09:45 Symbicort 160/4.5mcg - IH 2 puff BID [facility] Administration Diltiazem HCl 10 mg 05/29/18 07:40 05/29/18 07:59 Cardizem Injection - IVPUSH 10 mg Q4H PRN Administration FOR HR >110 Diltiazem HCl 60 mg 05/30/18 10:05 05/31/18 06:18 Cardizem - PO 60 mg TID [facility] Administration Escitalopram Oxalate 20 mg 05/29/18 14:30 05/31/18 09:42 Lexapro - PO 20 mg DAILY [facility] Administration Guaifenesin 1 tablet 05/28/18 13:45 05/31/18 09:43 Mucinex Dm - PO 1 tablet BID [facility] Administration Levalbuterol HCl 0.31 mg 05/29/18 10:33 Xopenex IH Q8H PRN ASTHMA Levalbuterol HCl 0.31 mg 05/31/18 15:00 Xopenex IH RTID [facility] Methylprednisolone Sodium Succinate 40 mg 05/31/18 10:00 05/31/18 09:42 Solu-Medrol - IVPUSH 40 mg Q8H-IV [facility] Administration Tiotropium [place] 2 puff 05/27/18 20:00 05/31/18 09:43 Spiriva Respimat IH 2 puff DAILY [facility] Administration ASSESSMENT/PLAN: 63 year-old female with a PMH significant for HTN, HLD, asthma and COPD. Admitted for COPD exacerbation. Hospital course complicated by new onset afib with RVR. Asthma/COPD exacerbation --increase frequency of levalbuterol nebs TID and PRN --Symbicort, Spiriva --IV steroids 40 q6h --afebrile, no leukocytosis, observe off antibiotics --pulmonary following New onset atrial fibrillation with RVR --[id number] --increase PO cardizem to 60mg QID for better rate control; cardizem IVP PRN --continue Eliquis 5mg BID Hypertension --BP stable --not on anti-hypertensives Hyperlipidemia --not on statin therapy FEN Fluids: PO intake adequate Electrolytes: replete as indicated Nutrition: low sodium DVT prophylaxis: subq lovenox Dispo: continues to require inpatient care. Full code. Visit type - Emergency Visit Emergency Visit: Yes ED Registration Date: 05/28/18 Care time: The patient presented to the Emergency Department on the above date and was hospitalized for further evaluation of their emergent condition. - New Patient This patient is new to me today: No - Critical Care Critical Care patient: No
--- NOTE | 2018-05-31 14:57 | PN ---
Progress Note (short form) - Note Progress Note: PULMONARY COMPLAINING OF SOB/TIGHTNESS AND WHEEZE WAS WINDED UPON GOING TO BATHROOM VSS/AFEBRILE ANICTERIC BILATERAL WHEEZE ANTERIOR/POSTERIOR ON INHALATION AND EXHALATION S1S2 BS+ NO EDEMA LABS/MEDS/NOTES/IMAGES/ REVIEWED IMP COPD/ASTHMA EXACERBATION HTN HLD PLAN IV STEROIDS INCREASE TO Q6H XOPENEX O2 MONITOR PEAK FLOW ZITHROMAX PFTS OUTPATIENT DVT PROPHYLAXIS CHECK PEAK FLOW Derek BUCKLEY MD
[2018-05-31] MEDS: LEVALBUTEROL HCL 0.31 MG/3 ML VIAL.NEB IH SCH ×2 (15:11→21:11)
[2018-05-31] MEDS ORDERED: PT OWN MED DRAWER 7, Y5N ONE ×4 (15:18→21:24)
--- NOTE | 2018-05-31 17:06 | PN ---
Progress Note, Physician History of Present Illness: REY, chest tightness and wheeze, afib with improved rate-control. - Current Medication List Current Medications: Active Medications Apixaban (Eliquis -) 5 mg PO BID [facility] Last Admin: 05/31/18 09:42 Dose: 5 mg Budesonide/Formoterol Fumarate (Symbicort 160/4.5mcg -) 2 puff IH BID [facility] Last Admin: 05/31/18 09:45 Dose: 2 puff Diltiazem HCl (Cardizem Injection -) 10 mg IVPUSH Q4H PRN PRN Reason: FOR HR >110 Last Admin: 05/29/18 07:59 Dose: 10 mg Diltiazem HCl (Cardizem -) 60 mg PO TID [facility] Last Admin: 05/31/18 14:25 Dose: 60 mg Escitalopram Oxalate (Lexapro -) 20 mg PO DAILY [facility] Last Admin: 05/31/18 09:42 Dose: 20 mg Guaifenesin (Mucinex Dm -) 1 tablet PO BID [facility] Last Admin: 05/31/18 09:43 Dose: 1 tablet Levalbuterol HCl (Xopenex) 0.31 mg IH Q8H PRN PRN Reason: ASTHMA Levalbuterol HCl (Xopenex) 0.31 mg IH RTID [facility] Last Admin: 05/31/18 15:11 Dose: 0.31 mg Methylprednisolone Sodium Succinate (Solu-Medrol -) 40 mg IVPUSH Q6H-IV [facility] Last Admin: 05/31/18 15:11 Dose: 40 mg Tiotropium [place] (Spiriva Respimat) 2 puff IH DAILY [facility] Last Admin: 05/31/18 09:43 Dose: 2 puff - Objective Vital Signs: Vital Signs Temperature 98.5 F 05/31/18 13:57 Pulse Rate 68 05/31/18 13:57 Respiratory Rate 16 05/31/18 13:57 Blood Pressure 159/99 05/31/18 13:57 O2 Sat by Pulse Oximetry (%) 93 L 05/31/18 13:57 Constitutional: Yes: No Distress, Calm, Thin Neck: Yes: Supple Cardiovascular: Yes: Tachycardia, Pulse Irregular, Murmur (2/6 SM) Respiratory: Yes: Regular, Diminished, On Nasal O2, Wheezes Gastrointestinal: Yes: Normal Bowel Sounds, Soft Edema: No Labs: CBC, BMP 05/29/18 08:24 05/29/18 08:24 - ....Imaging EKG: Report Reviewed (Tele: Afib @ 115) Problem List - Problems (1) Paroxysmal atrial fibrillation with rapid ventricular response Code(s): I48.0 - PAROXYSMAL ATRIAL FIBRILLATION (2) Asthma with COPD with exacerbation Code(s): J44.1 - CHRONIC OBSTRUCTIVE PULMONARY DISEASE W (ACUTE) EXACERBATION; J45.901 - UNSPECIFIED ASTHMA WITH (ACUTE) EXACERBATION (3) HTN (hypertension) Code(s): I10 - ESSENTIAL (PRIMARY) HYPERTENSION Qualifiers: Hypertension type: essential hypertension Qualified Code(s): I10 - Essential (primary) hypertension (4) URI (upper respiratory infection) Code(s): J06.9 - ACUTE UPPER RESPIRATORY INFECTION, UNSPECIFIED Qualifiers: URI type: unspecified URI Qualified Code(s): J06.9 - Acute upper respiratory infection, unspecified Assessment/Plan 05/29/2018 Echo: Normal RV and LV size and fxn, LVEF 55-60%, mod MR, TR RVSP 23 mmHg, mild AR 1. COPD exacerbation and URI 2. PAF with RVR and [id number] score of 2 3. HTN 4. Hyperlipidemia 5. Mitral valve and tricuspid valve regurgitations PLAN: 1. Uptitrate Cardizem 60 QID for better rate control 2. Continue Eliquis 5 mg BID 3. IV steroid, bronchodilator-Xoponex with caution and d/tavia empiric antibiotic 4. If remains in AF, may consider synchronized cardioversion (preferably as outpatient once COPD is fully improved) and patient is adequately anticoagulated
[2018-05-31] MEDS ORDERED: LEVALBUTEROL HCL 0.31 MG/3 ML VIAL.NEB IH SCH (20:00)
[2018-06-01] MEDS: methylPREDNISolone NA SUCC 40 MG/1 ML VIAL IVPUSH SCH ×4 (02:10→20:26)
--- NOTE | 2018-06-01 06:56 | PN ---
Progress Note (short form) - Note Progress Note: Chief Complaint: Events noted, notes reviewed, atrial fibrillation with rapid ventricular response persists, reports dyspnea but improved, denies any chest pain History of Present Illness: Seen and examined on telemetry. Events noted, notes reviewed, atrial fibrillation with rapid ventricular response persists, reports dyspnea but improved, denies any chest pain Echocardiography dated 05/29/2018 revealed normal RV and LV size and function, LVEF 55-60%, moderate MR and TR with RVSP 23 mmHg and mild AR - Current Medication List Current Medications Apixaban (Eliquis -) 5 mg PO BID [facility] Last Admin: 05/31/18 21:45 Dose: 5 mg Budesonide/Formoterol Fumarate (Symbicort 160/4.5mcg -) 2 puff IH BID [facility] Last Admin: 05/31/18 21:45 Dose: 2 puff Diltiazem HCl (Cardizem Injection -) 10 mg IVPUSH Q4H PRN PRN Reason: FOR HR >110 Last Admin: 05/29/18 07:59 Dose: 10 mg Diltiazem HCl (Cardizem -) 60 mg PO QID [facility] Last Admin: 05/31/18 22:59 Dose: 60 mg Escitalopram Oxalate (Lexapro -) 20 mg PO DAILY [facility] Last Admin: 05/31/18 09:42 Dose: 20 mg Guaifenesin (Mucinex Dm -) 1 tablet PO BID [facility] Last Admin: 05/31/18 21:45 Dose: 1 tablet Levalbuterol HCl (Xopenex) 0.31 mg IH Q8H PRN PRN Reason: ASTHMA Levalbuterol HCl (Xopenex) 0.31 mg IH RTID [facility] Last Admin: 05/31/18 21:11 Dose: 0.31 mg Methylprednisolone Sodium Succinate (Solu-Medrol -) 40 mg IVPUSH Q6H-IV [facility] Last Admin: 06/01/18 02:10 Dose: 40 mg Tiotropium [place] (Spiriva Respimat) 2 puff IH DAILY [facility] Last Admin: 05/31/18 09:43 Dose: 2 puff Review of Systems - Review of Systems Constitutional: denies: Chills or Fever Cardiovascular: as noted above Gastrointestinal: denies: Nausea, Vomiting, Diarrhea, Constipation or Abdominal Pain Genitourinary: No symptoms reported Neurological: No symptoms reported Vital Signs: Last Vital Signs Temp Pulse Resp BP Pulse Ox 98.7 F 96 H 20 152/97 95 06/01/18 06:00 06/01/18 06:00 06/01/18 06:00 06/01/18 06:00 06/01/18 06:00 Intake & Output 05/29/18 05/30/18 05/31/18 06/01/18 23:59 23:59 23:59 23:59 Intake Total 037 132 7544 Output Total 1000 Balance -985 794 9136 Constitutional: No Distress, Calm Neck: Supple Negative JVD Respiratory: Bilateral Minimal Scattered Rhonchi Cardiovascular: S1 S2 Irregularly Irregular Garde 2/6 MC Gastrointestinal: Soft Benign Normal Bowel Sounds Ext: No Edema Labs: CBC, BMP 05/29/18 08:24 05/29/18 08:24 Hepatic Panel Total Bilirubin 0.4 mg/dl (0.2-1.0) 05/29/18 08:24 AST 29 U/L (10-42) D 05/29/18 08:24 ALT 19 U/L (10-40) 05/29/18 08:24 Alkaline Phosphatase 65 U/L (32-92) 05/29/18 08:24 Albumin 3.4 g/dl (3.5-5.0) L 05/29/18 08:24 Assessment/Plan ASSESSMENT: 1. Paroxysmal atrial fibrillation with periods of rapid ventricular response, [id number] score of 2 2. CAD with evidence of coronary artery calcification on CT scan of the chest with no clinical angina pectoris 3. Diastolic LV dysfuntion with clinical class 0 NYHA classifiaction LV failure 4. COPD with acute exacerbation, resolving 5. HTN 6. Hyperlipidemia 7. Mitral valve regurgitation 8. Tricuspid valve regurgitation PLAN: 1. Add B-Blockers with caution, Lopressor 2. Continue Cardizem and utilize IV Cardizem as needed 3. Add ACEI or ARBS unless contraindicated 4. Continue Eliquis 5. If patient remains in AF with RVR, may consider ANA ROSA guided synchronized cardioversion otherwise preferably as outpatient once COPD is fully resolved and patient is adequately anticoagulated for at least 4 weeks Jt Garza M.D.
[2018-06-01] MEDS ORDERED: PT OWN MED DRAWER 7, Y5N ONE ×4 (08:11→20:21)
[2018-06-01] MEDS: LEVALBUTEROL HCL 0.31 MG/3 ML VIAL.NEB IH SCH ×3 (08:29→20:26)
[2018-06-01] MEDS: dilTIAZem HCL 30 MG TABLET (FP) PO SCH ×4 (10:07→21:17)
[2018-06-01] MEDS: TIOTROPIUM BROMIDE 2.5 MCG (SPIRIVA) RESPIMAT INHALER IH SCH (10:08)
[2018-06-01] MEDS: APIXABAN 5 MG TABLET PO SCH ×2 (10:08→21:16)
[2018-06-01] MEDS: METOPROLOL TARTRATE 25 MG TABLET (FP) PO SCH ×2 (10:08→21:17)
[2018-06-01] MEDS: ESCITALOPRAM OXALATE 20 MG TABLET (FP) PO SCH (10:08)
[2018-06-01] MEDS: VALSARTAN 80 MG TABLET (UD) PO SCH (10:08)
[2018-06-01] MEDS: guaiFENesin/D-METHORPHAN HB 1 EACH TAB.ER.12H PO SCH ×2 (10:08→21:17)
[2018-06-01] MEDS: BUDESONIDE/FORMETEROL FUMARATE 160/4.5 mcg INHALER IH SCH ×2 (10:09→21:17)
--- NOTE | 2018-06-01 12:18 | PN ---
Progress Note (short form) - Note Progress Note: PULMONARY COMPLAINING LESS OF SOB/TIGHTNESS VSS/AFEBRILE ANICTERIC BILATERAL WHEEZE ANTERIOR/POSTERIOR ON INHALATION AND EXHALATION S1S2 BS+ NO EDEMA LABS/MEDS/NOTES/IMAGES/ REVIEWED IMP COPD/ASTHMA EXACERBATION HTN HLD PLAN IV STEROIDS TO REMAIN AT Q6H FOR TODAY LIKELY DE-ESCALATE TOMORROW XOPENEX O2 MONITOR PEAK FLOW ZITHROMAX PFTS OUTPATIENT DVT PROPHYLAXIS CHECK PEAK FLOW CARDIOLOGY NOTE REVIEWED Derek BUCKLEY MD
--- NOTE | 2018-06-01 14:54 | PN ---
Physical Exam: SUBJECTIVE: Patient seen and examined. Shortness of breath much better. Chest tightness improved. OBJECTIVE: Vital Signs Period Temp Pulse Resp BP Sys/Avzquez Pulse Ox Last 24 Hr 97.7 F-98.7 F 83-115 19-20 117-152/64-97 93-95 GENERAL: Awake, alert, and fully oriented, in no acute distress. LUNGS: diffuse expiratory wheezing, much improved HEART: Irregular rate and rhythm, normal S1 and S2 ABDOMEN: Soft, nontender, not distended MUSCULOSKELETAL: Normal range of motion at all joints. No bony deformities or tenderness. No CVA tenderness. UPPER EXTREMITIES: 2+ pulses, warm, well-perfused. No cyanosis. No clubbing. No peripheral edema. LOWER EXTREMITIES: 2+ pulses, warm, well-perfused. No calf tenderness. No peripheral edema. NEUROLOGICAL: Cranial nerves II-XII intact. Normal speech. Active Medications Generic Name Dose Route Start Last Admin Trade Name Freq PRN Reason Stop Dose Admin Apixaban 5 mg 05/29/18 10:00 06/01/18 10:08 Eliquis - PO 5 mg BID [facility] Administration Budesonide/Formoterol Fumarate 2 puff 05/27/18 22:00 06/01/18 10:09 Symbicort 160/4.5mcg - IH 2 puff BID [facility] Administration Diltiazem HCl 10 mg 05/29/18 07:40 05/29/18 07:59 Cardizem Injection - IVPUSH 10 mg Q4H PRN Administration FOR HR >110 Diltiazem HCl 60 mg 05/31/18 18:00 06/01/18 14:23 Cardizem - PO Not Given QID [facility] Escitalopram Oxalate 20 mg 05/29/18 14:30 06/01/18 10:08 Lexapro - PO 20 mg DAILY [facility] Administration Guaifenesin 1 tablet 05/28/18 13:45 06/01/18 10:08 Mucinex Dm - PO 1 tablet BID [facility] Administration Levalbuterol HCl 0.31 mg 05/29/18 10:33 Xopenex IH Q8H PRN ASTHMA Levalbuterol HCl 0.31 mg 05/31/18 15:00 06/01/18 14:23 Xopenex IH 0.31 mg RTID [facility] Administration Methylprednisolone Sodium Succinate 40 mg 05/31/18 15:00 06/01/18 14:24 Solu-Medrol - IVPUSH 40 mg Q6H-IV [facility] Administration Metoprolol Tartrate 25 mg 06/01/18 10:00 06/01/18 10:08 Lopressor - PO 25 mg BID [facility] Administration Tiotropium [place] 2 puff 05/27/18 20:00 06/01/18 10:08 Spiriva Respimat IH 2 puff DAILY [facility] Administration Valsartan 80 mg 06/01/18 10:00 06/01/18 10:08 Diovan - PO 80 mg DAILY [facility] Administration ASSESSMENT/PLAN: 63 year-old female with a PMH significant for HTN, HLD, asthma and COPD. Admitted for COPD exacerbation. Hospital course complicated by new onset afib with RVR. Asthma/COPD exacerbation --continue levalbuterol nebs TID and PRN --Symbicort, Spiriva --IV steroids --afebrile, no leukocytosis, observe off antibiotics --pulmonary following New onset atrial fibrillation with RVR --[id number] --PO cardizem increased yesterday to 60mg QID, add lopressor 25mg BID today; cardizem IVP PRN --continue Eliquis 5mg BID Hypertension --BP stable --start valsartan per cardiology Hyperlipidemia --not on statin therapy FEN Fluids: PO intake adequate Electrolytes: replete as indicated Nutrition: low sodium DVT prophylaxis: subq lovenox Dispo: continues to require inpatient care. Full code. Visit type - Emergency Visit Emergency Visit: Yes ED Registration Date: 05/28/18 Care time: The patient presented to the Emergency Department on the above date and was hospitalized for further evaluation of their emergent condition. - New Patient This patient is new to me today: No - Critical Care Critical Care patient: No
[2018-06-02] MEDS: methylPREDNISolone NA SUCC 40 MG/1 ML VIAL IVPUSH SCH ×3 (02:14→17:41)
--- NOTE | 2018-06-02 07:29 | PN ---
Progress Note (short form) - Note Progress Note: Chief Complaint: Events noted, notes reviewed, atrial fibrillation with improved ventricular rates, reports dyspnea but continues to improve, denies any chest pain History of Present Illness: Seen and examined on telemetry. Events noted, notes reviewed, atrial fibrillation with improved ventricular rates, reports dyspnea but continues to improve, denies any chest pain Echocardiography dated 05/29/2018 revealed normal RV and LV size and function, LVEF 55-60%, moderate MR and TR with RVSP 23 mmHg and mild AR - Current Medication List Current Medications Apixaban (Eliquis -) 5 mg PO BID [facility] Last Admin: 06/01/18 21:16 Dose: 5 mg Budesonide/Formoterol Fumarate (Symbicort 160/4.5mcg -) 2 puff IH BID [facility] Last Admin: 06/01/18 21:17 Dose: 2 puff Diltiazem HCl (Cardizem Injection -) 10 mg IVPUSH Q4H PRN PRN Reason: FOR HR >110 Last Admin: 05/29/18 07:59 Dose: 10 mg Diltiazem HCl (Cardizem -) 60 mg PO QID [facility] Last Admin: 06/01/18 21:17 Dose: 60 mg Escitalopram Oxalate (Lexapro -) 20 mg PO DAILY [facility] Last Admin: 06/01/18 10:08 Dose: 20 mg Guaifenesin (Mucinex Dm -) 1 tablet PO BID [facility] Last Admin: 06/01/18 21:17 Dose: 1 tablet Levalbuterol HCl (Xopenex) 0.31 mg IH Q8H PRN PRN Reason: ASTHMA Levalbuterol HCl (Xopenex) 0.31 mg IH RTID [facility] Last Admin: 06/01/18 20:26 Dose: 0.31 mg Methylprednisolone Sodium Succinate (Solu-Medrol -) 40 mg IVPUSH Q6H-IV [facility] Last Admin: 06/02/18 02:14 Dose: 40 mg Metoprolol Tartrate (Lopressor -) 25 mg PO BID [facility] Last Admin: 06/01/18 21:17 Dose: 25 mg Tiotropium [place] (Spiriva Respimat) 2 puff IH DAILY [facility] Last Admin: 06/01/18 10:08 Dose: 2 puff Valsartan (Diovan -) 80 mg PO DAILY [facility] Last Admin: 06/01/18 10:08 Dose: 80 mg Review of Systems - Review of Systems Constitutional: denies: Chills or Fever Cardiovascular: as noted above Gastrointestinal: denies: Nausea, Vomiting, Diarrhea, Constipation or Abdominal Pain Genitourinary: No symptoms reported Neurological: No symptoms reported Vital Signs: Last Vital Signs Temp Pulse Resp BP Pulse Ox 97.8 F 94 H 20 139/88 93 L 06/02/18 06:00 06/02/18 06:00 06/02/18 06:00 06/02/18 06:00 06/01/18 19:52 Intake & Output 05/30/18 05/31/18 06/01/18 06/02/18 23:59 23:59 23:59 23:59 Intake Total 950 1300 775 Balance 950 1300 775 Constitutional: No Distress, Calm Neck: Supple Negative JVD Respiratory: Bilateral Minimal Scattered Rhonchi Cardiovascular: S1 S2 Irregularly Irregular Garde 2/6 MC Gastrointestinal: Soft Benign Normal Bowel Sounds Ext: No Edema Labs: CBC, BMP 05/29/18 08:24 05/29/18 08:24 Hepatic Panel Total Bilirubin 0.4 mg/dl (0.2-1.0) 05/29/18 08:24 AST 29 U/L (10-42) D 05/29/18 08:24 ALT 19 U/L (10-40) 05/29/18 08:24 Alkaline Phosphatase 65 U/L (32-92) 05/29/18 08:24 Albumin 3.4 g/dl (3.5-5.0) L 05/29/18 08:24 Assessment/Plan ASSESSMENT: 1. Paroxysmal atrial fibrillation with periods of rapid ventricular response improved rates, [id number] score of 2 on DOAC's/Eliquis 2. CAD with evidence of coronary artery calcification on CT scan of the chest with no clinical angina pectoris, needs further evaluation 3. Diastolic LV dysfunction with clinical class 0 NYHA classification LV failure 4. COPD with acute exacerbation, resolving 5. HTN 6. Hyperlipidemia 7. Mitral valve regurgitation 8. Tricuspid valve regurgitation PLAN: 1. Continue Lopressor and titrate dosage 2. Continue Cardizem and change to CD and utilize IV Cardizem as needed 3. Continue Diovan 4. Continue Eliquis 5. If patient remains in AF with RVR, may consider ANA ROSA guided synchronized cardioversion otherwise preferably as outpatient once COPD is fully resolved and patient is adequately anticoagulated for at least 4 weeks, discussed with the patient, if HR adequately controlled later today may be D/C from the cardiovascular point of view Jt Garza M.D.
[2018-06-02] MEDS ORDERED: PT OWN MED DRAWER 7, Y5N ONE ×5 (08:22→21:12)
[2018-06-02] MEDS: METOPROLOL TARTRATE 50 MG TABLET (FP) PO SCH ×2 (08:25→21:14)
[2018-06-02] MEDS: LEVALBUTEROL HCL 0.31 MG/3 ML VIAL.NEB IH SCH ×3 (08:26→20:00)
[2018-06-02 08:34] LABS: HEMATOCRIT 42.9 % (32.4-45.2); HEMOGLOBIN 13.9 GM/dl (10.7-15.3); MCH 28.3 pg (25.7-33.7); MCHC 32.5 g/dl (32.0-36.0); MEAN CELL VOLUME 86.9 fl (80-96); MEAN PLT VOLUME 9.4 fl (7.5-11.1); PLATELET COUNT 212 K/MM3 (134-434); RBC 4.94 M/mm3 (3.60-5.2); RDW 13.4 % (11.6-15.6); WHITE BLOOD COUNT 12.3 K/mm3 (4.0-10.8)
[2018-06-02] MEDS: guaiFENesin/D-METHORPHAN HB 1 EACH TAB.ER.12H PO SCH ×2 (09:54→21:14)
[2018-06-02] MEDS: ESCITALOPRAM OXALATE 20 MG TABLET (FP) PO SCH (09:55)
[2018-06-02] MEDS: TIOTROPIUM BROMIDE 2.5 MCG (SPIRIVA) RESPIMAT INHALER IH SCH (09:55)
[2018-06-02] MEDS: VALSARTAN 80 MG TABLET (UD) PO SCH (09:55)
[2018-06-02] MEDS: APIXABAN 5 MG TABLET PO SCH ×2 (09:55→21:14)
[2018-06-02] MEDS: BUDESONIDE/FORMETEROL FUMARATE 160/4.5 mcg INHALER IH SCH ×2 (09:56→21:14)
[2018-06-02 10:14] LABS: ALBUMIN 2.9 g/dl (3.5-5.0); ALK PHOS 50 U/L (32-92); ANION GAP 7 MMOL/L (8-16); BILIRUBIN,TOTAL 0.2 mg/dl (0.2-1.0); BLOOD UREA NITROGEN 22 mg/dl (7-18); CALCIUM 8.7 mg/dl (8.4-10.2); CHLORIDE 102 mmol/L (98-107); CO2 26 mmol/L (22-28); CREATININE 0.6 mg/dl (0.6-1.3); GLUCOSE,RANDOM 144 mg/dl (74-106); MAGNESIUM 2.1 mg/dL (1.8-2.4); POTASSIUM 4.3 mmol/L (3.5-5.1); SGOT/AST 31 U/L (10-42); SGPT/ALT 60 U/L (10-40); SODIUM 135 mmol/L (136-145)
[2018-06-02 10:15] LABS: PLATELET ESTIMATE ADEQUATE
--- NOTE | 2018-06-02 13:38 | PN ---
Progress Note (short form) - Note Progress Note: PULMONARY COMPLAINING LESS OF SOB/TIGHTNESS VSS/AFEBRILE ANICTERIC BILATERAL WHEEZE ANTERIOR/POSTERIOR ON INHALATION AND EXHALATION S1S2 BS+ NO EDEMA LABS/MEDS/NOTES/IMAGES/ REVIEWED IMP COPD/ASTHMA EXACERBATION HTN HLD PLAN IV STEROIDS REDUCED TO Q8 XOPENEX O2 MONITOR PEAK FLOW ZITHROMAX PFTS OUTPATIENT DVT PROPHYLAXIS CHECK PEAK FLOW Derek BUCKLEY MD
--- NOTE | 2018-06-02 14:18 | PN ---
Physical Exam: SUBJECTIVE: Patient seen and examined at bedside. Feels better, SOB with ambulation is improved. OBJECTIVE: Vital Signs Period Temp Pulse Resp BP Sys/Vazquez Pulse Ox Last 24 Hr 97.7 F-98.4 F 93-114 18-22 121-144/78-90 93-94 GENERAL: Awake, alert, and fully oriented, in no acute distress. LUNGS: scattered wheezes HEART: Irregular rate and rhythm, normal S1 and S2 ABDOMEN: Soft, nontender, not distended MUSCULOSKELETAL: Normal range of motion at all joints. No bony deformities or tenderness. No CVA tenderness. UPPER EXTREMITIES: 2+ pulses, warm, well-perfused. No cyanosis. No clubbing. No peripheral edema. LOWER EXTREMITIES: 2+ pulses, warm, well-perfused. No calf tenderness. No peripheral edema. NEUROLOGICAL: Cranial nerves II-XII intact. Normal speech. Laboratory Results - last 24 hr 06/02/18 06/02/18 07:00 07:00 WBC 12.3 H RBC 4.94 Hgb 13.9 Hct 42.9 MCV 86.9 MCH 28.3 MCHC 32.5 RDW 13.4 Plt Count 212 MPV 9.4 Absolute Neuts (auto) 11.2 Neutrophils % No Result Required. Neutrophils % (Manual) 94.0 H* Lymphocytes % No Result Required. Lymphocytes % (Manual) 5.0 L Monocytes % (Manual) 1 L Platelet Estimate Adequate Sodium 135 L Potassium 4.3 Chloride 102 Carbon Dioxide 26 Anion Gap 7 L BUN 22 H Creatinine 0.6 Creat Clearance w eGFR > 60 Random Glucose 144 H D Calcium 8.7 Magnesium 2.1 Total Bilirubin 0.2 AST 31 ALT 60 H D Alkaline Phosphatase 50 D Total Protein 6.0 L Albumin 2.9 L Active Medications Generic Name Dose Route Start Last Admin Trade Name Freq PRN Reason Stop Dose Admin Apixaban 5 mg 05/29/18 10:00 06/02/18 09:55 Eliquis - PO 5 mg BID [facility] Administration Budesonide/Formoterol Fumarate 2 puff 05/27/18 22:00 06/02/18 09:56 Symbicort 160/4.5mcg - IH 2 puff BID [facility] Administration Diltiazem HCl 10 mg 05/29/18 07:40 05/29/18 07:59 Cardizem Injection - IVPUSH 10 mg Q4H PRN Administration FOR HR >110 Diltiazem HCl 240 mg 06/02/18 10:00 06/02/18 09:57 Cardizem Cd - PO 240 mg DAILY [facility] Administration Escitalopram Oxalate 20 mg 05/29/18 14:30 06/02/18 09:55 Lexapro - PO 20 mg DAILY [facility] Administration Guaifenesin 1 tablet 05/28/18 13:45 06/02/18 09:54 Mucinex Dm - PO 1 tablet BID [facility] Administration Levalbuterol HCl 0.31 mg 05/29/18 10:33 Xopenex IH Q8H PRN ASTHMA Levalbuterol HCl 0.31 mg 05/31/18 15:00 06/02/18 08:26 Xopenex IH 0.31 mg RTID [facility] Administration Methylprednisolone Sodium Succinate 40 mg 06/02/18 18:00 Solu-Medrol - IVPUSH Q8H-IV [facility] Metoprolol Tartrate 50 mg 06/02/18 07:45 06/02/18 08:25 Lopressor - PO 50 mg BID [facility] Administration Tiotropium [place] 2 puff 05/27/18 20:00 06/02/18 09:55 Spiriva Respimat IH 2 puff DAILY [facility] Administration Valsartan 80 mg 06/01/18 10:00 06/02/18 09:55 Diovan - PO 80 mg DAILY [facility] Administration ASSESSMENT/PLAN 63 year-old female with a PMH significant for HTN, HLD, asthma and COPD. Admitted for COPD exacerbation. Hospital course complicated by new onset afib with RVR. Asthma/COPD exacerbation --continue levalbuterol nebs TID and PRN --Symbicort, Spiriva --tapering IV steroids --afebrile, no leukocytosis, observe off antibiotics --pulmonary following New onset atrial fibrillation with RVR --[id number] --now on diltiazem CD 240mg, lopressor 25mg BID today; cardizem IVP PRN; rate 90s --continue Eliquis 5mg BID Hypertension --BP stable --continue valsartan Hyperlipidemia --not on statin therapy FEN Fluids: PO intake adequate Electrolytes: replete as indicated Nutrition: low sodium DVT prophylaxis: subq lovenox Dispo: continues to require inpatient care. Full code Visit type - Emergency Visit Emergency Visit: Yes ED Registration Date: 05/28/18 Care time: The patient presented to the Emergency Department on the above date and was hospitalized for further evaluation of their emergent condition. - New Patient This patient is new to me today: No - Critical Care Critical Care patient: No
[2018-06-03] MEDS: methylPREDNISolone NA SUCC 40 MG/1 ML VIAL IVPUSH SCH ×3 (02:06→17:17)
[2018-06-03] MEDS ORDERED: PT OWN MED DRAWER 7, Y5N ONE ×4 (07:57→20:08)
[2018-06-03] MEDS: LEVALBUTEROL HCL 0.31 MG/3 ML VIAL.NEB IH SCH ×3 (07:59→21:21)
--- NOTE | 2018-06-03 08:00 | PN ---
Progress Note (short form) - Note Progress Note: Chief Complaint: Events noted, notes reviewed, dyspnea and wheezing this AM, , denies any chest pain, atrial fibrillation persists with improved ventricular rates History of Present Illness: Seen and examined on telemetry. Events noted, notes reviewed, dyspnea and wheezing this AM, , denies any chest pain, atrial fibrillation persists with improved ventricular rates Echocardiography dated 05/29/2018 revealed normal RV and LV size and function, LVEF 55-60%, moderate MR and TR with RVSP 23 mmHg and mild AR - Current Medication List Current Medications Apixaban (Eliquis -) 5 mg PO BID [facility] Last Admin: 06/02/18 21:14 Dose: 5 mg Budesonide/Formoterol Fumarate (Symbicort 160/4.5mcg -) 2 puff IH BID [facility] Last Admin: 06/02/18 21:14 Dose: 2 puff Diltiazem HCl (Cardizem Injection -) 10 mg IVPUSH Q4H PRN PRN Reason: FOR HR >110 Last Admin: 05/29/18 07:59 Dose: 10 mg Diltiazem HCl (Cardizem Cd -) 240 mg PO DAILY [facility] Last Admin: 06/02/18 09:57 Dose: 240 mg Escitalopram Oxalate (Lexapro -) 20 mg PO DAILY [facility] Last Admin: 06/02/18 09:55 Dose: 20 mg Guaifenesin (Mucinex Dm -) 1 tablet PO BID [facility] Last Admin: 06/02/18 21:14 Dose: 1 tablet Levalbuterol HCl (Xopenex) 0.31 mg IH Q8H PRN PRN Reason: ASTHMA Levalbuterol HCl (Xopenex) 0.31 mg IH RTID [facility] Last Admin: 06/03/18 07:59 Dose: 0.31 mg Methylprednisolone Sodium Succinate (Solu-Medrol -) 40 mg IVPUSH Q8H-IV [facility] Last Admin: 06/03/18 02:06 Dose: 40 mg Metoprolol Tartrate (Lopressor -) 50 mg PO BID [facility] Last Admin: 06/02/18 21:14 Dose: 50 mg Tiotropium [place] (Spiriva Respimat) 2 puff IH DAILY [facility] Last Admin: 06/02/18 09:55 Dose: 2 puff Valsartan (Diovan -) 80 mg PO DAILY [facility] Last Admin: 06/02/18 09:55 Dose: 80 mg Review of Systems - Review of Systems Constitutional: denies: Chills or Fever Cardiovascular: as noted above Gastrointestinal: denies: Nausea, Vomiting, Diarrhea, Constipation or Abdominal Pain Genitourinary: No symptoms reported Neurological: No symptoms reported Vital Signs: Last Vital Signs Temp Pulse Resp BP Pulse Ox 98.1 F 78 20 146/88 94 L 06/03/18 06:00 06/03/18 06:00 06/03/18 06:00 06/03/18 06:00 06/02/18 20:40 Intake & Output 05/31/18 06/01/18 06/02/18 06/03/18 23:59 23:59 23:59 23:59 Intake Total 1300 775 825 Balance 1300 775 825 Constitutional: No Distress, Calm Neck: Supple Negative JVD Respiratory: Bilateral Expiratory Rhonchi Cardiovascular: S1 S2 Irregularly Irregular Garde 2/6 MC Gastrointestinal: Soft Benign Normal Bowel Sounds Ext: No Edema Labs: CBC, BMP 06/02/18 07:00 06/02/18 07:00 Hepatic Panel Total Bilirubin 0.2 mg/dl (0.2-1.0) 06/02/18 07:00 AST 31 U/L (10-42) 06/02/18 07:00 ALT 60 U/L (10-40) H D 06/02/18 07:00 Alkaline Phosphatase 50 U/L (32-92) D 06/02/18 07:00 Albumin 2.9 g/dl (3.5-5.0) L 06/02/18 07:00 Assessment/Plan ASSESSMENT: 1. Paroxysmal atrial fibrillation with periods of rapid ventricular response improved rates, [id number] score of 2 on DOAC's/Eliquis 2. CAD with evidence of coronary artery calcification on CT scan of the chest with no clinical angina pectoris, needs further evaluation as outpatient 3. Diastolic LV dysfunction with clinical class 0 NYHA classification LV failure 4. COPD with acute exacerbation, recurrent wheeze this AM 5. HTN 6. Hyperlipidemia 7. Mitral valve regurgitation 8. Tricuspid valve regurgitation PLAN: 1. Change Lopressor to Bystolic and titrate dosage 2. Continue Cardizem CD and utilize IV Cardizem as needed 3. Continue Diovan 4. Continue Eliquis 5. As outlined in prior notes if patient remains in AF with RVR, may consider ANA ROSA guided synchronized cardioversion otherwise preferably as outpatient once COPD is fully resolved and patient is adequately anticoagulated for at least 4 weeks, discussed with the patient 6. Bronchodilators and steroids as per the pulmonary service Jt Garza M.D.
[2018-06-03] MEDS: TIOTROPIUM BROMIDE 2.5 MCG (SPIRIVA) RESPIMAT INHALER IH SCH (09:20)
[2018-06-03] MEDS: BUDESONIDE/FORMETEROL FUMARATE 160/4.5 mcg INHALER IH SCH ×2 (09:20→21:20)
[2018-06-03] MEDS: ESCITALOPRAM OXALATE 20 MG TABLET (FP) PO SCH (09:20)
[2018-06-03] MEDS: VALSARTAN 80 MG TABLET (UD) PO SCH (09:21)
[2018-06-03] MEDS: APIXABAN 5 MG TABLET PO SCH ×2 (09:21→21:20)
[2018-06-03] MEDS: NEBIVOLOL 5 MG TABLET (FP) PO SCH ×2 (09:26→21:20)
[2018-06-03] MEDS: guaiFENesin/D-METHORPHAN HB 1 EACH TAB.ER.12H PO SCH ×2 (09:26→21:21)
--- NOTE | 2018-06-03 16:06 | PN ---
Physical Exam: SUBJECTIVE: Patient seen and examined. Experienced SOB and chest tightness again this morning. OBJECTIVE: Vital Signs Period Temp Pulse Resp BP Sys/Vazquez Pulse Ox Last 24 Hr 97.8 F-98.6 F 78-103 18-22 118-146/74-88 94-94 GENERAL: Awake, alert, and fully oriented, in no acute distress. LUNGS: Diminished breath sounds HEART: Irregular rate and rhythm, normal S1 and S2 ABDOMEN: Soft, nontender, not distended MUSCULOSKELETAL: Normal range of motion at all joints. No bony deformities or tenderness. No CVA tenderness. UPPER EXTREMITIES: 2+ pulses, warm, well-perfused. No cyanosis. No clubbing. No peripheral edema. LOWER EXTREMITIES: 2+ pulses, warm, well-perfused. No calf tenderness. No peripheral edema. NEUROLOGICAL: Cranial nerves II-XII intact. Normal speech. Active Medications Generic Name Dose Route Start Last Admin Trade Name Freq PRN Reason Stop Dose Admin Apixaban 5 mg 05/29/18 10:00 06/03/18 09:21 Eliquis - PO 5 mg BID CORA Administration Budesonide/Formoterol Fumarate 2 puff 05/27/18 22:00 06/03/18 09:20 Symbicort 160/4.5mcg - IH 2 puff BID CORA Administration Diltiazem HCl 10 mg 05/29/18 07:40 05/29/18 07:59 Cardizem Injection - IVPUSH 10 mg Q4H PRN Administration FOR HR >110 Diltiazem HCl 240 mg 06/02/18 10:00 06/03/18 09:21 Cardizem Cd - PO 240 mg DAILY CORA Administration Escitalopram Oxalate 20 mg 05/29/18 14:30 06/03/18 09:20 Lexapro - PO 20 mg DAILY CORA Administration Guaifenesin 1 tablet 05/28/18 13:45 06/03/18 09:26 Mucinex Dm - PO 1 tablet BID CORA Administration Levalbuterol HCl 0.31 mg 05/31/18 15:00 06/03/18 14:19 Xopenex IH 0.31 mg RTID CORA Administration Methylprednisolone Sodium Succinate 40 mg 06/02/18 18:00 06/03/18 09:21 Solu-Medrol - IVPUSH 40 mg Q8H-IV CORA Administration Nebivolol 5 mg 06/03/18 10:00 06/03/18 09:26 Bystolic - PO 5 mg BID CORA Administration Tiotropium [place] 2 puff 05/27/18 20:00 06/03/18 09:20 Spiriva Respimat IH 2 puff DAILY CORA Administration Valsartan 80 mg 06/01/18 10:00 06/03/18 09:21 Diovan - PO 80 mg DAILY CORA Administration ASSESSMENT/PLAN 63 year-old female with a PMH significant for HTN, HLD, asthma and COPD. Admitted for COPD exacerbation. Hospital course complicated by new onset afib with RVR. Asthma/COPD exacerbation --continues to have periods of SOB and chest tightness; repeat CXR wihtout change --continue levalbuterol nebs TID and PRN --Symbicort, Spiriva -- IV steroids --afebrile, no leukocytosis, observe off antibiotics --pulmonary following New onset atrial fibrillation with RVR --[id number] --lopressor changed to nebivolol tmg BID; continue dltiazem CD 240mg, cardizem IVP PRN --continue Eliquis 5mg BID Hypertension --BP stable --continue valsartan Hyperlipidemia --not on statin therapy FEN Fluids: PO intake adequate Electrolytes: replete as indicated Nutrition: low sodium DVT prophylaxis: subq lovenox Dispo: continues to require inpatient care. Full code Visit type - Emergency Visit Emergency Visit: Yes ED Registration Date: 05/28/18 Care time: The patient presented to the Emergency Department on the above date and was hospitalized for further evaluation of their emergent condition. - New Patient This patient is new to me today: No - Critical Care Critical Care patient: No
[2018-06-03] MEDS: NYSTATIN 500,000 UNITS/5 ML SUSPENSION PO SCH (22:00)
[2018-06-04] MEDS: methylPREDNISolone NA SUCC 40 MG/1 ML VIAL IVPUSH SCH ×3 (02:00→18:04)
[2018-06-04] MEDS: NYSTATIN 500,000 UNITS/5 ML SUSPENSION PO SCH ×3 (06:05→21:40)
--- NOTE | 2018-06-04 07:16 | PN ---
Progress Note (short form) - Note Progress Note: Chief Complaint: Events noted, notes reviewed, dyspnea persists but improved, , denies any chest pain, atrial fibrillation persists with improved ventricular rates History of Present Illness: Seen and examined on telemetry. Events noted, notes reviewed, dyspnea persists but improved, , denies any chest pain, atrial fibrillation persists with improved ventricular rates Echocardiography dated 05/29/2018 revealed normal RV and LV size and function, LVEF 55-60%, moderate MR and TR with RVSP 23 mmHg and mild AR - Current Medication List Current Medications Apixaban (Eliquis -) 5 mg PO BID [facility] Last Admin: 06/03/18 21:20 Dose: 5 mg Budesonide/Formoterol Fumarate (Symbicort 160/4.5mcg -) 2 puff IH BID [facility] Last Admin: 06/03/18 21:20 Dose: 2 puff Diltiazem HCl (Cardizem Injection -) 10 mg IVPUSH Q4H PRN PRN Reason: FOR HR >110 Last Admin: 05/29/18 07:59 Dose: 10 mg Diltiazem HCl (Cardizem Cd -) 240 mg PO DAILY [facility] Last Admin: 06/03/18 09:21 Dose: 240 mg Escitalopram Oxalate (Lexapro -) 20 mg PO DAILY [facility] Last Admin: 06/03/18 09:20 Dose: 20 mg Guaifenesin (Mucinex Dm -) 1 tablet PO BID [facility] Last Admin: 06/03/18 21:21 Dose: 1 tablet Levalbuterol HCl (Xopenex) 0.31 mg IH RTID [facility] Last Admin: 06/03/18 21:21 Dose: 0.31 mg Methylprednisolone Sodium Succinate (Solu-Medrol -) 40 mg IVPUSH Q8H-IV [facility] Last Admin: 06/04/18 02:00 Dose: 40 mg Nebivolol (Bystolic -) 5 mg PO BID [facility] Last Admin: 06/03/18 21:20 Dose: 5 mg Nystatin (Nystatin Oral Suspension -) 500,000 units PO TID [facility] Last Admin: 06/04/18 06:05 Dose: 500,000 units Tiotropium [place] (Spiriva Respimat) 2 puff IH DAILY [facility] Last Admin: 06/03/18 09:20 Dose: 2 puff Valsartan (Diovan -) 80 mg PO DAILY [facility] Last Admin: 06/03/18 09:21 Dose: 80 mg Review of Systems - Review of Systems Constitutional: denies: Chills or Fever Cardiovascular: as noted above Gastrointestinal: denies: Nausea, Vomiting, Diarrhea, Constipation or Abdominal Pain Genitourinary: No symptoms reported Neurological: No symptoms reported Vital Signs: Last Vital Signs Temp Pulse Resp BP Pulse Ox 98.1 F 72 20 168/86 94 L 06/04/18 06:00 06/04/18 06:00 06/04/18 06:00 06/04/18 06:00 06/03/18 19:23 Intake & Output 06/01/18 06/02/18 06/03/18 06/04/18 23:59 23:59 23:59 23:59 Intake Total 775 825 Balance 775 825 Constitutional: No Distress, Calm Neck: Supple Negative JVD Respiratory: Bilateral Minimal Scattered Rhonchi Cardiovascular: S1 S2 Irregularly Irregular Garde 2/6 MC Gastrointestinal: Soft Benign Normal Bowel Sounds Ext: No Edema Labs: CBC, BMP 06/02/18 07:00 06/02/18 07:00 Hepatic Panel Total Bilirubin 0.2 mg/dl (0.2-1.0) 06/02/18 07:00 AST 31 U/L (10-42) 06/02/18 07:00 ALT 60 U/L (10-40) H D 06/02/18 07:00 Alkaline Phosphatase 50 U/L (32-92) D 06/02/18 07:00 Albumin 2.9 g/dl (3.5-5.0) L 06/02/18 07:00 Assessment/Plan ASSESSMENT: 1. Paroxysmal atrial fibrillation with periods of rapid ventricular response improved rates, [id number] score of 2 on DOAC's/Eliquis 2. CAD with evidence of coronary artery calcification on CT scan of the chest with no clinical angina pectoris, needs further evaluation as outpatient 3. Diastolic LV dysfunction with clinical class 0 NYHA classification LV failure 4. COPD with acute exacerbation, resolving 5. HTN 6. Hyperlipidemia 7. Mitral valve regurgitation 8. Tricuspid valve regurgitation PLAN: 1. Continue Bystolic and titrate dosage 2. Continue Cardizem CD and utilize IV Cardizem as needed 3. Continue Diovan and titrate dosage 4. Continue Eliquis 5. As outlined in prior notes plan outpatient cardioversion once COPD is fully resolved and patient is adequately anticoagulated for at least 4 weeks, discussed with the patient, can be D/C from the cardiovascular point of view 6. Bronchodilators and steroids as per the pulmonary service Advised F/U in the office in 1-2 week Jt Garza M.D.
[2018-06-04] MEDS ORDERED: PT OWN MED DRAWER 7, Y5N ONE ×4 (07:48→21:25)
[2018-06-04] MEDS: LEVALBUTEROL HCL 0.31 MG/3 ML VIAL.NEB IH SCH ×3 (08:15→21:40)
[2018-06-04] MEDS: dilTIAZem HCL 50 MG/10 ML - 10 ML VIAL IVPUSH PRN (09:15)
--- NOTE | 2018-06-04 09:24 | PN ---
Physical Exam: SUBJECTIVE: Patient seen and examined, reports intermittent productive cough, denies sob, cp,palpitations. OBJECTIVE: Vital Signs Period Temp Pulse Resp BP Sys/Vazquez Pulse Ox Last 24 Hr 98.1 F-98.6 F 72-107 19-20 118-168/83-92 94-94 GENERAL: The patient is awake, alert, and fully oriented, in no acute distress. HEAD: Normal with no signs of trauma. EYES: PERRL, extraocular movements intact, sclera anicteric, conjunctiva clear. No ptosis. ENT: Ears normal, nares patent, oropharynx clear without exudates, moist mucous membranes. NECK: Trachea midline, full range of motion, supple. LUNGS: Breath sounds diminished,no wheezes, no crackles, no accessory muscle use. HEART: Regular rate and rhythm, S1, S2 without murmur, rub or gallop. ABDOMEN: Soft, non-tender, nondistended, normoactive bowel sounds, no guarding, no rebound, no hepatosplenomegaly, no masses. EXTREMITIES: 2+ pulses, warm, well-perfused, no edema. NEUROLOGICAL: Cranial nerves II through XII grossly intact. Normal speech, gait not observed. PSYCH: Normal mood, normal affect. SKIN: Warm, dry, normal turgor, no rashes or lesions noted Active Medications Generic Name Dose Route Start Last Admin Trade Name Freq PRN Reason Stop Dose Admin Apixaban 5 mg 05/29/18 10:00 06/03/18 21:20 Eliquis - PO 5 mg BID CORA Administration Budesonide/Formoterol Fumarate 2 puff 05/27/18 22:00 06/03/18 21:20 Symbicort 160/4.5mcg - IH 2 puff BID CORA Administration Diltiazem HCl 10 mg 05/29/18 07:40 05/29/18 07:59 Cardizem Injection - IVPUSH 10 mg Q4H PRN Administration FOR HR >110 Diltiazem HCl 240 mg 06/02/18 10:00 06/03/18 09:21 Cardizem Cd - PO 240 mg DAILY CORA Administration Escitalopram Oxalate 20 mg 05/29/18 14:30 06/03/18 09:20 Lexapro - PO 20 mg DAILY CORA Administration Guaifenesin 1 tablet 05/28/18 13:45 06/03/18 21:21 Mucinex Dm - PO 1 tablet BID CORA Administration Levalbuterol HCl 0.31 mg 05/31/18 15:00 06/03/18 21:21 Xopenex IH 0.31 mg RTID CORA Administration Methylprednisolone Sodium Succinate 40 mg 06/02/18 18:00 06/04/18 02:00 Solu-Medrol - IVPUSH 40 mg Q8H-IV CORA Administration Nebivolol 5 mg 06/03/18 10:00 06/03/18 21:20 Bystolic - PO 5 mg BID CORA Administration Nystatin 500,000 units 06/03/18 22:00 06/04/18 06:05 Nystatin Oral Suspension - PO 500,000 units TID CORA Administration Tiotropium [place] 2 puff 05/27/18 20:00 06/03/18 09:20 Spiriva Respimat IH 2 puff DAILY CORA Administration Valsartan 160 mg 06/04/18 10:00 Diovan - PO DAILY CORA ASSESSMENT/PLAN: This is a 63 year-old female with a PMH significant for HTN, HLD, asthma and COPD. Admitted for COPD exacerbation. Hospital course complicated by new onset afib with RVR. *Asthma/COPD exacerbation- improving -Rpt CXR: No acute infiltrate - CT chest mild COPD -will continue on IV steroid,Symbicort, Spiriva and Neb tx - pulmonary following, rec peak flow and out pt PFT -afebrile, leukocytosis trending down, likely due to steroid use,will monitor off abx *New onset atrial fibrillation with RVR- HR in 100's -[id number] - cardiology following,plan out pt cardioversion -continue Eliquis 5mg BID -Lopressor changed to nebivolol tmg BID -will continue Diltiazem CD 240mg, Cardizem IVP PRN - Echo EF 60% - abnormal TSH,will check free T4 *Hypertension -will continue valsartan,nebivolol and Cardizem - will monitor BP closely *Hyperlipidemia -not on stain therapy *Abnormal ALT -AST- WNL - asymptomatic -will f/u on lab in am * Oral thrush - started on Nystatin swish and swallow *FEN Fluids: PO intake adequate Electrolytes: replete as indicated Nutrition: low sodium DVT prophylaxis: On Eliquis Dispo: Continues to require inpatient care. Full code Visit type - Emergency Visit Emergency Visit: Yes ED Registration Date: 05/28/18 Care time: The patient presented to the Emergency Department on the above date and was hospitalized for further evaluation of their emergent condition. - New Patient This patient is new to me today: Yes Date on this admission: 06/04/18 - Critical Care Critical Care patient: No
[2018-06-04] MEDS: NEBIVOLOL 5 MG TABLET (FP) PO SCH ×2 (10:00→21:39)
[2018-06-04] MEDS: ESCITALOPRAM OXALATE 20 MG TABLET (FP) PO SCH (10:00)
[2018-06-04] MEDS: BUDESONIDE/FORMETEROL FUMARATE 160/4.5 mcg INHALER IH SCH ×2 (10:00→21:42)
[2018-06-04] MEDS: APIXABAN 5 MG TABLET PO SCH ×2 (10:00→21:39)
[2018-06-04] MEDS: guaiFENesin/D-METHORPHAN HB 1 EACH TAB.ER.12H PO SCH ×2 (10:00→21:40)
[2018-06-04] MEDS: TIOTROPIUM BROMIDE 2.5 MCG (SPIRIVA) RESPIMAT INHALER IH SCH (10:00)
[2018-06-04] MEDS: VALSARTAN 160 MG TABLET (UD) PO SCH (10:00)
[2018-06-05] MEDS: methylPREDNISolone NA SUCC 40 MG/1 ML VIAL IVPUSH SCH ×2 (02:01→09:17)
[2018-06-05 06:31] VITALS: PULSE 69; TEMP 98.1
[2018-06-05] MEDS: NYSTATIN 500,000 UNITS/5 ML SUSPENSION PO SCH (06:43)
[2018-06-05 07:37] LABS: HEMATOCRIT 46.7 % (32.4-45.2); HEMOGLOBIN 15.8 GM/dl (10.7-15.3); MCH 28.8 pg (25.7-33.7); MCHC 33.7 g/dl (32.0-36.0); MEAN CELL VOLUME 85.5 fl (80-96); MEAN PLT VOLUME 8.8 fl (7.5-11.1); PLATELET COUNT 207 K/MM3 (134-434); RBC 5.46 M/mm3 (3.60-5.2); RDW 13.3 % (11.6-15.6); WHITE BLOOD COUNT 14.5 K/mm3 (4.0-10.8)
[2018-06-05 07:54] LABS: ALBUMIN 3.2 g/dl (3.5-5.0); ALK PHOS 62 U/L (32-92); ANION GAP 10 MMOL/L (8-16); BILIRUBIN,TOTAL 0.8 mg/dl (0.2-1.0); BLOOD UREA NITROGEN 22 mg/dl (7-18); CALCIUM 8.9 mg/dl (8.4-10.2); CHLORIDE 97 mmol/L (98-107); CO2 28 mmol/L (22-28); CREATININE 0.7 mg/dl (0.6-1.3); GLUCOSE,RANDOM 129 mg/dl (74-106); POTASSIUM 4.4 mmol/L (3.5-5.1); SGOT/AST 24 U/L (10-42); SGPT/ALT 62 U/L (10-40); SODIUM 135 mmol/L (136-145); TOT PROT 6.5 g/dl (6.4-8.3)
[2018-06-05] MEDS: LEVALBUTEROL HCL 0.31 MG/3 ML VIAL.NEB IH SCH (08:00)
[2018-06-05] MEDS ORDERED: PT OWN MED DRAWER 7, Y5N ONE ×2 (09:04→10:11)
[2018-06-05] MEDS: VALSARTAN 160 MG TABLET (UD) PO SCH (09:17)
[2018-06-05] MEDS: ESCITALOPRAM OXALATE 20 MG TABLET (FP) PO SCH (09:17)
[2018-06-05] MEDS: APIXABAN 5 MG TABLET PO SCH (09:17)
[2018-06-05] MEDS: NEBIVOLOL 5 MG TABLET (FP) PO SCH (09:17)
[2018-06-05] MEDS: guaiFENesin/D-METHORPHAN HB 1 EACH TAB.ER.12H PO SCH (09:17)
[2018-06-05] MEDS: BUDESONIDE/FORMETEROL FUMARATE 160/4.5 mcg INHALER IH SCH (09:18)
[2018-06-05 09:19] VITALS: BP 145/68
[2018-06-05 09:40] LABS: PLATELET ESTIMATE ADEQUATE
--- NOTE | 2018-06-05 09:47 | PN ---
Progress Note, Physician Chief Complaint: Events noted Feels well wanting to go home History of Present Illness: Patient was seen and examined. Awake and alert. Chart was reviewed Denies chest pain, SOB or palpitations - Current Medication List Current Medications: Active Medications Apixaban (Eliquis -) 5 mg PO BID [facility] Last Admin: 06/05/18 09:17 Dose: 5 mg Budesonide/Formoterol Fumarate (Symbicort 160/4.5mcg -) 2 puff IH BID [facility] Last Admin: 06/05/18 09:18 Dose: 2 puff Diltiazem HCl (Cardizem Injection -) 10 mg IVPUSH Q4H PRN PRN Reason: FOR HR >110 Last Admin: 06/04/18 09:15 Dose: 10 mg Diltiazem HCl (Cardizem Cd -) 240 mg PO DAILY [facility] Last Admin: 06/05/18 09:17 Dose: 240 mg Escitalopram Oxalate (Lexapro -) 20 mg PO DAILY [facility] Last Admin: 06/05/18 09:17 Dose: 20 mg Guaifenesin (Mucinex Dm -) 1 tablet PO BID [facility] Last Admin: 06/05/18 09:17 Dose: 1 tablet Levalbuterol HCl (Xopenex) 0.31 mg IH RTID [facility] Last Admin: 06/05/18 08:00 Dose: 0.31 mg Methylprednisolone Sodium Succinate (Solu-Medrol -) 40 mg IVPUSH Q8H-IV [facility] Last Admin: 06/05/18 09:17 Dose: 40 mg Nebivolol (Bystolic -) 5 mg PO BID [facility] Last Admin: 06/05/18 09:17 Dose: 5 mg Nystatin (Nystatin Oral Suspension -) 500,000 units PO TID [facility] Last Admin: 06/05/18 06:43 Dose: 500,000 units Tiotropium [place] (Spiriva Respimat) 2 puff IH DAILY [facility] Last Admin: 06/04/18 10:00 Dose: 2 puff Valsartan (Diovan -) 160 mg PO DAILY [facility] Last Admin: 06/05/18 09:17 Dose: 160 mg - Objective Vital Signs: Vital Signs Temperature 98.1 F 06/05/18 06:00 Pulse Rate 69 06/05/18 06:00 Respiratory Rate 18 06/05/18 08:14 Blood Pressure 145/68 06/05/18 09:19 O2 Sat by Pulse Oximetry (%) 98 06/05/18 08:14 Neck: Yes: Supple Cardiovascular: Yes: Pulse Irregular, Murmur (2/6 SM), S1, S2 Respiratory: Yes: CTA Bilaterally Gastrointestinal: Yes: Normal Bowel Sounds, Soft. No: Tenderness Edema: No Additional Findings/Remarks: - Review of Systems Constitutional: denies: Chills or Fever Cardiovascular: denies: chest pain, SOB, palpitations Pulmonary: denies: cough, sputum production, hemoptysis Gastrointestinal: denies: Nausea, Vomiting, Diarrhea, Constipation or Abdominal Pain Genitourinary: No symptoms reported Neurological: denies: seizure, syncope Labs: CBC, BMP 06/05/18 07:20 06/05/18 07:20 Problem List - Problems (1) Hypercholesterolemia Code(s): E78.00 - PURE HYPERCHOLESTEROLEMIA, UNSPECIFIED (2) Paroxysmal atrial fibrillation with rapid ventricular response Code(s): I48.0 - PAROXYSMAL ATRIAL FIBRILLATION (3) Shortness of breath Code(s): R06.02 - SHORTNESS OF BREATH (4) COPD (chronic obstructive pulmonary disease) with acute bronchitis Code(s): J44.0 - CHRONIC OBSTRUCTIVE PULMON DISEASE W ACUTE LOWER RESP INFCT; J20.9 - ACUTE BRONCHITIS, UNSPECIFIED (5) HTN (hypertension) Code(s): I10 - ESSENTIAL (PRIMARY) HYPERTENSION Qualifiers: Hypertension type: essential hypertension Qualified Code(s): I10 - Essential (primary) hypertension (6) URI (upper respiratory infection) Code(s): J06.9 - ACUTE UPPER RESPIRATORY INFECTION, UNSPECIFIED Qualifiers: URI type: unspecified URI Qualified Code(s): J06.9 - Acute upper respiratory infection, unspecified Assessment/Plan 1. Paroxysmal atrial fibrillation with periods of rapid ventricular response improved rates, [id number] score of 2 on DOAC/Eliquis 2. CAD with evidence of coronary artery calcification on CT scan of the chest 3. Diastolic LV dysfunction with clinical class 0 NYHA classification LV failure 4. COPD with acute exacerbation 5. HTN 6. Hyperlipidemia 7. Mitral valve regurgitation 8. Tricuspid valve regurgitation PLAN: 1. Continue Bystolic and titrate dosage 2. Continue Cardizem CD 3. Continue Diovan and titrate dosage 4. Continue Eliquis 5. Further cardiac work up including synchronized cardioversion if remains in AF. Advised F/U in the office in 1-2 week after discharge William Saxena MD
[2018-06-05] MEDS: TIOTROPIUM BROMIDE 2.5 MCG (SPIRIVA) RESPIMAT INHALER IH SCH (10:39)
[2018-06-05] MEDS ORDERED: dilTIAZem HCL 60 MG TABLET (FP) PO ONE (10:45)
[2018-06-05] MEDS ORDERED: methylPREDNISolone NA SUCC 40 MG/1 ML VIAL IVPUSH SCH (22:00)
== END 2018-06-05 13:43 | disposition home or self-care (01) | DRG 191 ==
LOC: FER 11:11 → INTOOBSV 15:23 → FM/S 15:23 → OBSVTOIN 05-28 15:22
PROVIDERS: ADMIT Family Medicine; ATTEND Nurse Practitioner Acute Care
DX: J44.1 Chronic obstructive pulmonary disease with (acute) exacerbation (principal); B37.0 Candidal stomatitis; I10 Essential (primary) hypertension; E78.00 Pure hypercholesterolemia, unspecified; R06.02 Shortness of breath; I08.1 Rheumatic disorders of both mitral and tricuspid valves; I48.0 Paroxysmal atrial fibrillation; I25.10 Atherosclerotic heart disease of native coronary artery without angina pectoris; J44.0 Chronic obstructive pulmonary disease with (acute) lower respiratory infection; J20.9 Acute bronchitis, unspecified; Z87.891 Personal history of nicotine dependence
CPT/HCPCS: 36415; 71046-TC-FY; 71250-TC; 80053; 83735; 84439; 84443; 85025; 93005; 93306-TC; 94640; 99282-25; G0378

== ENCOUNTER 2020-06-20 05:58 | Day surgery (SDC) | payer OTHER, BC ==
[2020-06-19 13:38] VITALS: BMI 28.9
[2020-06-20] MEDS ORDERED: LIDOCAINE HCL 1% EPINEPHRINE 1:200,000 30 ML VIAL (PF) ONE ×2 (09:50→09:51)
[2020-06-20] MEDS ORDERED: MIDAZOLAM HCL 2 MG/2 ML SINGLE DOSE VIAL ONE ×2 (10:08→10:33)
[2020-06-20] MEDS ORDERED: PROPOFOL 20 ML ONE (10:08)
[2020-06-20] MEDS ORDERED: BUPIVACAINE HCL/PF 0.5% (5 MG/ML) 30 ML VIAL IJ ONE ×3 (10:22→10:59)
[2020-06-20] MEDS ORDERED: ceFAZolin SODIUM 1 GM VIAL IVPB ONE (10:53)
[2020-06-20] MEDS ORDERED: LIDOCAINE 1%/EPI 1:100000 (20 ML MULTI DOSE VIAL) INF ONE ×2 (10:59)
[2020-06-20 13:07] VITALS: TEMP 98.4
[2020-06-20 13:48] VITALS: BP 141/83; PULSE 90
== END 2020-06-20 13:51 | disposition home or self-care (01) ==
LOC: JASU-SURG 05:58
PROVIDERS: ATTEND Surgery
PROC: 07B20ZX Excision of Left Neck Lymphatic, Open Approach, Diagnostic (ICD-10-PCS; principal; 2020-06-20 10:00)
DX: K11.20 Sialoadenitis, unspecified (principal)
CPT/HCPCS: 87070; 87075; 87205; 88307-TC; 94760

== ENCOUNTER 2023-08-02 15:25 | Inpatient (IN) | payer OTHER, BC ==
[2023-08-02 17:07] LABS: BASO % 1.5 % (0-2.0); EOS % 18.5 % (0-4.5); HEMATOCRIT 40.7 % (32.4-45.2); HEMOGLOBIN 13.5 GM/dL (10.7-15.3); LYMPH % 28.1 % (8-40); MCH 26.5 pg (25.7-33.7); MCHC 33.2 g/dl (32.0-36.0); MEAN CELL VOLUME 79.8 fl (80-96); MEAN PLT VOLUME 8.4 fl (7.5-11.1); MONO % 10.1 % (3.8-10.2); NEUT % 41.8 % (42.8-82.8); PLATELET COUNT 173 10^3/uL (134-434); RBC 5.11 M/mm3 (3.60-5.2); RDW 15.8 % (11.6-15.6); WHITE BLOOD COUNT 6.1 K/mm3 (4.0-10.0)
[2023-08-02 17:21] LABS: POTASSIUM 3.3 mmol/L (3.5-5.1)
[2023-08-02 17:23] LABS: ALBUMIN 3.4 g/dl (3.4-5.0); BLOOD UREA NITROGEN 13.7 mg/dL (7-18); CALCIUM 9.5 mg/dL (8.5-10.1)
[2023-08-02 17:26] LABS: CREATININE 0.7 mg/dL (0.55-1.3)
[2023-08-02 17:28] LABS: BILIRUBIN,TOTAL 0.3 mg/dL (0.2-1); TOT PROT 7.8 g/dl (6.4-8.2)
[2023-08-02] MEDS ORDERED: POTASSIUM CHLORIDE ORAL LIQUID 20 MEQ/15 ML ONE (19:49)
[2023-08-02] MEDS: POTASSIUM CHLORIDE ORAL LIQUID 20 MEQ/15 ML PO ONE (20:12)
[2023-08-02 20:46] LABS: EPI CELLS 32 /uL (0-25.1); HYALINE CASTS 8 /uL (0-3.1); URINE APPEARANCE CLOUDY; URINE BACTERIA >9,000 /uL (0-1359); URINE BILIRUBIN NEGATIVE (NEGATIVE); URINE COLOR YELLOW; URINE GLUCOSE (UA) NEGATIVE (NEGATIVE); URINE KETONE TRACE (NEGATIVE); URINE LEUK ESTERASE 2+ (NEGATIVE); URINE NITRITE POSITIVE (NEGATIVE); URINE PROTEIN 2+ (NEGATIVE); URINE WBC 256 /uL (0-25.8)
[2023-08-02] MEDS ORDERED: ACETAMINOPHEN 325 MG TABLET (FP) PO PRN (21:54)
[2023-08-02] MEDS ORDERED: DOCUSATE SODIUM 100 MG CAPSULE (FP) PO PRN (21:54)
[2023-08-02] MEDS ORDERED: ALBUTEROL SO4 HFA INHALER IH PRN (22:02)
[2023-08-02 22:33] LABS: YEAST NONE SEEN (NEGATIVE)
[2023-08-02 23:53] LABS: HIV INTERPRETATION PRESUMPTIVE POSITIVE (NEGATIVE)
[2023-08-03] MEDS: BUDESONIDE/FORMETEROL FUMARATE 160/4.5 mcg INHALER IH SCH (01:00)
[2023-08-03 09:30] LABS: MCH 26.4 pg (25.7-33.7); MCHC 32.5 g/dl (32.0-36.0); MEAN CELL VOLUME 81.1 fl (80-96); MEAN PLT VOLUME 8.6 fl (7.5-11.1); PLATELET COUNT 151 10^3/uL (134-434); RBC 4.56 M/mm3 (3.60-5.2); RDW 15.8 % (11.6-15.6); WHITE BLOOD COUNT 5.6 K/mm3 (4.0-10.0)
[2023-08-03 09:31] LABS: INR 1.06 (0.83-1.09); PROTHROMBIN TIME (PATIENT) 12.3 SEC (9.7-13.0)
[2023-08-03 09:44] LABS: POTASSIUM 4.2 mmol/L (3.5-5.1)
[2023-08-03] MEDS: FLUCONAZOLE 100 MG TABLET (UD) PO SCH (09:53)
[2023-08-03] MEDS: HEPARIN NA (PORCINE) 5,000 UNITS/ML 1ML VIAL SQ SCH (09:53)
[2023-08-03 09:56] LABS: CALCIUM 8.9 mg/dL (8.5-10.1)
[2023-08-03 09:57] LABS: BLOOD UREA NITROGEN 12.6 mg/dL (7-18)
[2023-08-03 10:07] LABS: CREATININE 0.6 mg/dL (0.55-1.3)
[2023-08-03] MEDS: CEFTRIAXONE 1 GM in DEXTROSE 5%-WATER - 50 ML IVPB SCH (10:41)
[2023-08-03 12:13] LABS: ANISOCYTOSIS 0; HELMET CELLS 0; HOWELL-JOLLY BODIES 0; MACROCYTOSIS 0; OVALOCYTE 0; ROULEAU 0; SICKELED CELLS 0; TARGET CELLS 0; TEAR DROP CELLS 0; TOXIC GRANULATION 0
[2023-08-03] MEDS: MONTELUKAST NA 10 MG TABLET PO SCH (21:26)
[2023-08-06] MEDS: BICTEGRAV/EMTRICIT/TENOFOV (BIKTARVY) 50-200-25 MG TABLET PO SCH (09:37)
[2023-08-07] MEDS: ONDANSETRON 4 MG/2 ML VIAL IVPUSH PRN (09:57)
[2023-08-07] MEDS: PANTOPRAZOLE SODIUM 40 MG VIAL IVPUSH SCH (09:59)
[2023-08-07 10:42] LABS: HEMATOCRIT 36.3 % (32.4-45.2); HEMOGLOBIN 12.1 GM/dL (10.7-15.3); MCH 26.8 pg (25.7-33.7); MCHC 33.4 g/dl (32.0-36.0); MEAN CELL VOLUME 80.4 fl (80-96); MEAN PLT VOLUME 8.6 fl (7.5-11.1); PLATELET COUNT 154 10^3/uL (134-434); RBC 4.52 M/mm3 (3.60-5.2); RDW 15.7 % (11.6-15.6); WHITE BLOOD COUNT 5.1 K/mm3 (4.0-10.0)
[2023-08-07 10:53] LABS: POTASSIUM 4.4 mmol/L (3.5-5.1)
[2023-08-07 10:55] LABS: CALCIUM 8.9 mg/dL (8.5-10.1)
[2023-08-07 10:56] LABS: BLOOD UREA NITROGEN 16.7 mg/dL (7-18)
[2023-08-07 10:58] LABS: CREATININE 0.6 mg/dL (0.55-1.3)
[2023-08-07 11:00] LABS: BILIRUBIN,TOTAL 0.3 mg/dL (0.2-1); TOT PROT 6.6 g/dl (6.4-8.2)
[2023-08-07 11:16] LABS: ALBUMIN 2.7 g/dl (3.4-5.0)
[2023-08-07 12:06] LABS: ANISOCYTOSIS 0; MACROCYTOSIS 0
[2023-08-07 16:30] VITALS: BMI 17.6
[2023-08-08] MEDS: CEPHALEXIN MONOHYDRATE 500 MG CAPSULE (UD) PO SCH (21:54)
[2023-08-09] MEDS: COLCHICINE 0.6 MG CAP PO ONE (08:43)
[2023-08-09] MEDS ORDERED: predniSONE 10 MG TABLET (UD) PO SCH (11:30)
[2023-08-09 11:45] LABS: ALBUMIN 2.8 g/dl (3.4-5.0); BLOOD UREA NITROGEN 21.1 mg/dL (7-18); CALCIUM 8.5 mg/dL (8.5-10.1)
[2023-08-09 11:48] LABS: CREATININE 0.7 mg/dL (0.55-1.3); URIC ACID 2.1 mg/dL (2.6-7.2)
[2023-08-09 11:50] LABS: BILIRUBIN,TOTAL 0.5 mg/dL (0.2-1); TOT PROT 6.7 g/dl (6.4-8.2)
[2023-08-09 14:32] VITALS: BP 142/85; PULSE 79; RESP 16; TEMP 98.1
[2023-08-10] MEDS ORDERED: PANTOPRAZOLE 40 MG TABLET PO SCH (10:00)
[2023-08-10] MEDS ORDERED: SULFAMETHOXAZOLE/TRIMETHOPRIM 800MG/160MG D.S. TABLET PO SCH (10:00)
== END 2023-08-09 15:57 | DRG 977 ==
LOC: JER 15:25 → JERBED 17:27 → J5S 08-03 01:24 → OBSVTOIN 08-03 10:07
PROVIDERS: ADMIT Internal Medicine; ATTEND Nurse Practitioner Family
DX: G62.9 Polyneuropathy, unspecified (principal); B20 Human immunodeficiency virus [HIV] disease; N39.0 Urinary tract infection, site not specified; B37.0 Candidal stomatitis; J44.9 Chronic obstructive pulmonary disease, unspecified; R26.0 Ataxic gait; R53.1 Weakness; I10 Essential (primary) hypertension; M47.9 Spondylosis, unspecified; J45.909 Unspecified asthma, uncomplicated; R30.0 Dysuria; E78.5 Hyperlipidemia, unspecified
CPT/HCPCS: 0241U-QW; 36415; 70450-TC; 70553-TC; 71045-TC-FY; 72125-TC; 72156-TC; 72170-TC-FY; 73502-TC-LT-FY; 73630-TC-LT; 80048; 80053; 81003; 82607; 83690; 83735; 84100; 84443; 84550; 85025; 85610; 85651; 85730; 86359; 86360; 86480; 86618; 86780; 87040; 87086; 87186; 87389; 87536; 87635; 93005; 93010; 97116-GP; 97161-GP; 99285-25; G0378; J1644

== ENCOUNTER 2023-11-24 15:23 | Inpatient (IN) | payer OTHER, BC ==
[2023-11-24] MEDS ORDERED: ALBUTEROL SO4 2.5/IPRATROPIUM 0.5 INH SOL 3 ML VIAL.NEB. NEB ONE (16:02)
[2023-11-24] MEDS: ALBUTEROL SO4 2.5/IPRATROPIUM 0.5 INH SOL 3 ML VIAL.NEB. NEB SCH (16:29)
[2023-11-24 17:14] LABS: VENOUS BASE EXCESS -1.2 mmol/L (-2-2); VENOUS O2 SATURATION 32.3 % (70-80); VENOUS PCO2 59.6 mmHg (38-52); VENOUS PH 7.269 (7.310-7.410)
[2023-11-24 17:15] LABS: BASO % 0.2 % (0-2.0); EOS % 0.8 % (0-4.5); HEMATOCRIT 35.4 % (32.4-45.2); HEMOGLOBIN 11.5 GM/dL (10.7-15.3); LYMPH % 4.8 % (8-40); MCH 28.7 pg (25.7-33.7); MCHC 32.5 g/dl (32.0-36.0); MEAN CELL VOLUME 88.4 fl (80-96); MEAN PLT VOLUME 7.3 fl (7.5-11.1); MONO % 4.2 % (3.8-10.2); PLATELET COUNT 292 10^3/uL (134-434); RBC 4.01 M/mm3 (3.60-5.2); RDW 15.6 % (11.6-15.6); WHITE BLOOD COUNT 16.1 K/mm3 (4.0-10.0)
[2023-11-24 17:33] LABS: POTASSIUM 3.6 mmol/L (3.5-5.1)
[2023-11-24 17:35] LABS: ALBUMIN 2.8 g/dl (3.4-5.0); BLOOD UREA NITROGEN 14.9 mg/dL (7-18); CALCIUM 9.4 mg/dL (8.5-10.1); MAGNESIUM 1.9 mg/dL (1.8-2.4)
[2023-11-24 17:38] LABS: CREATININE 0.7 mg/dL (0.55-1.3)
[2023-11-24 17:40] LABS: BILIRUBIN,TOTAL 0.6 mg/dL (0.2-1); TOT PROT 7.7 g/dl (6.4-8.2)
[2023-11-24] MEDS ORDERED: PIPERACILLIN/TAZOB 4.5 GM 4.5 GM/100 ML BAG IVPB ONE (18:20)
[2023-11-24] MEDS ORDERED: methylPREDNISolone NA SUCC 125 MG/2 ML VIAL ONE (18:20)
[2023-11-24] MEDS: methylPREDNISolone NA SUCC 125 MG/2 ML VIAL IVPB ONE (18:52)
[2023-11-24] MEDS: PIPERACILLIN/TAZOB 4.5 GM 4.5 GM in DEXTROSE 5%-WATER 100 ML IVPB ONE (18:52)
[2023-11-24] MEDS ORDERED: SULFAMETHOXAZOLE 80 MG/TRIMETHOPRIM 16 MG/ML VIAL IVPB ONE (19:41)
[2023-11-24] MEDS ORDERED: VANCOMYCIN 1 GRAM (PRE-DOCKED) 1,000 MG/250 ML BAG IVPB ONE (20:27)
[2023-11-24] MEDS: VANCOMYCIN 1,000 MG in DEXTROSE 5%-WATER - 250 ML IVPB ONE (20:35)
[2023-11-24] MEDS ORDERED: SODIUM CHLORIDE 1,000 ML IV SCH (21:45)
[2023-11-24] MEDS ORDERED: GLYCERIN 1 RECTAL SUPPOSITORY, ADULT RC PRN (22:56)
[2023-11-24] MEDS ORDERED: ONDANSETRON 4 MG TABLET PO SCH (23:00)
[2023-11-24] MEDS ORDERED: VANCOMYCIN 1,000 MG in DEXTROSE 5%-WATER - 250 ML IVPB SCH (23:15)
[2023-11-24] MEDS: ATORVASTATIN CA 20 MG TABLET (FP) PO SCH (23:45)
[2023-11-24] MEDS: SENNOSIDES 8.6MG TABLET (FP) PO SCH (23:45)
[2023-11-24] MEDS: MECLIZINE HCL 25 MG TABLET (FP) PO SCH (23:46)
[2023-11-24] MEDS: ONDANSETRON *ODT* 4 MG TABLET SL SCH (23:46)
[2023-11-24] MEDS: MIRTAZAPINE 15 MG TABLET (FP) PO SCH (23:46)
[2023-11-24] MEDS: clonazePAM 0.25 MG ODT TABLETS SL SCH (23:46)
[2023-11-24] MEDS: POLYETHYLENE GLYCOL (HEALTHYLAX) 3350 17 GM PACKET PO SCH (23:46)
[2023-11-25] MEDS: SULFAMETHOXAZOLE/TRIMETHOPRIM 400 MG in DEXTROSE 5%-WATER - 500 ML IVPB ONE (00:23)
[2023-11-25] MEDS: ALBUTEROL SO4 2.5/IPRATROPIUM 0.5 INH SOL 3 ML VIAL.NEB. NEB SCH ×2 (01:42→15:30)
[2023-11-25 02:26] LABS: EPI CELLS >36 /uL (0-25.1); HYALINE CASTS 36 /uL (0-3.1); URINE APPEARANCE TURBID; URINE BACTERIA 10 /uL (0-1359); URINE BILIRUBIN NEGATIVE (NEGATIVE); URINE COLOR YELLOW; URINE GLUCOSE (UA) NEGATIVE (NEGATIVE); URINE KETONE NEGATIVE (NEGATIVE); URINE LEUK ESTERASE NEGATIVE (NEGATIVE); URINE NITRITE NEGATIVE (NEGATIVE); URINE PROTEIN 1+ (NEGATIVE)
[2023-11-25] MEDS: PIPERACILLIN/TAZOB 2.25 GM 2.25 GM in DEXTROSE 5%-WATER - 50 ML IVPB SCH (02:45)
[2023-11-25] MEDS: INSULIN ASPART SLIDING SCALE (NOVOLOG) 1 VIAL SQ SCH (06:22)
[2023-11-25 07:58] LABS: HEMATOCRIT 33.1 % (32.4-45.2); MCH 28.7 pg (25.7-33.7); MCHC 33.1 g/dl (32.0-36.0); MEAN CELL VOLUME 86.5 fl (80-96); MEAN PLT VOLUME 7.7 fl (7.5-11.1); PLATELET COUNT 264 10^3/uL (134-434); RBC 3.82 M/mm3 (3.60-5.2); RDW 15.7 % (11.6-15.6); WHITE BLOOD COUNT 16.8 K/mm3 (4.0-10.0)
[2023-11-25 08:15] LABS: POTASSIUM 3.2 mmol/L (3.5-5.1)
[2023-11-25 08:22] LABS: ALBUMIN 2.4 g/dl (3.4-5.0); BLOOD UREA NITROGEN 14.2 mg/dL (7-18); MAGNESIUM 1.9 mg/dL (1.8-2.4)
[2023-11-25 08:25] LABS: CREATININE 0.7 mg/dL (0.55-1.3); PHOSPHOROUS 3.2 mg/dL (2.5-4.9)
[2023-11-25 08:26] LABS: BILIRUBIN,TOTAL 0.4 mg/dL (0.2-1)
[2023-11-25] MEDS ORDERED: MAGNESIUM HYDROX 2400MG/30ML ORAL SUSPENSION 30 ML CUP PO PRN (10:00)
[2023-11-25] MEDS: methylPREDNISolone NA SUCC 40 MG/1 ML VIAL IVPUSH SCH (10:01)
[2023-11-25] MEDS: BICTEGRAV/EMTRICIT/TENOFOV (BIKTARVY) 50-200-25 MG TABLET PO SCH (10:01)
[2023-11-25] MEDS: THIAMINE 100 MG TABLET PO SCH (10:02)
[2023-11-25] MEDS: MULTIVITAMINS (DAILY MVI) TABLET (FP) PO SCH (10:02)
[2023-11-25] MEDS: ASPIRIN COATED 81 MG TABLET.EC PO SCH (10:02)
[2023-11-25] MEDS: ASCORBIC ACID 500 MG TABLET (FP) PO SCH (10:02)
[2023-11-25] MEDS: ENOXAPARIN NA (PORCINE) 40 MG/0.4 ML DISP.SYRIN SQ SCH (10:03)
[2023-11-25] MEDS: BUDESONIDE/FORMETEROL FUMARATE 160/4.5 mcg INHALER IH SCH (11:02)
[2023-11-25 11:59] LABS: URINE CRYSTALS FEW /hpf; URINE RBC 425 /uL (0-23.9); URINE WBC 59 /uL (0-25.8)
[2023-11-25] MEDS ORDERED: ALBUTEROL SO4 0.083% IH SOL 2.5 MG/3 ML VIAL.NEB. NEB PRN (14:38)
[2023-11-25] MEDS: SULFAMETHOXAZOLE 80 MG/TRIMETHOPRIM 16 MG/ML VIAL IVPB SCH (15:52)
[2023-11-25] MEDS: PIPERACILLIN/TAZOB 3.375 GM 3.375 GM in DEXTROSE 5%-WATER - 50 ML IVPB SCH (17:11)
[2023-11-25] MEDS: SULFAMETHOXAZOLE/TRIMETHOPRIM 400 MG in DEXTROSE 5%-WATER - 500 ML IVPB SCH (17:45)
[2023-11-25] MEDS: MAG HYDROX/ALH/SMC/DPHA/LIDO 240 ML MOUTHWASH MM SCH (17:45)
[2023-11-25] MEDS ORDERED: VANCOMYCIN/WATER FOR INJ (PEG) 1,000 MG/200 ML BAG IVPB SCH (20:30)
[2023-11-26] MEDS ORDERED: PIPERACILLIN/TAZOB 2.25 GM 2.25 GM in DEXTROSE 5%-WATER - 50 ML IVPB SCH (02:00)
[2023-11-26 09:51] LABS: POTASSIUM 3.4 mmol/L (3.5-5.1)
[2023-11-26 09:52] LABS: CALCIUM 9.8 mg/dL (8.5-10.1); HEMATOCRIT 33.4 % (32.4-45.2); HEMOGLOBIN 10.8 GM/dL (10.7-15.3); MCH 28.5 pg (25.7-33.7); MCHC 32.3 g/dl (32.0-36.0); MEAN CELL VOLUME 88.4 fl (80-96); MEAN PLT VOLUME 8.2 fl (7.5-11.1); PLATELET COUNT 281 10^3/uL (134-434); RBC 3.78 M/mm3 (3.60-5.2); RDW 15.8 % (11.6-15.6); WHITE BLOOD COUNT 28.5 K/mm3 (4.0-10.0)
[2023-11-26 09:53] LABS: BLOOD UREA NITROGEN 17.1 mg/dL (7-18); MAGNESIUM 2.3 mg/dL (1.8-2.4)
[2023-11-26 09:56] LABS: CREATININE 0.8 mg/dL (0.55-1.3); PHOSPHOROUS 2.8 mg/dL (2.5-4.9)
[2023-11-26] MEDS: METOPROLOL TARTRATE 25 MG TABLET (FP) PO SCH (17:46)
[2023-11-26] MEDS: POTASSIUM CHLORIDE TABS 20 MEQ TABLET.ER (FP) PO SCH (17:48)
[2023-11-26] MEDS ORDERED: VANCOMYCIN/WATER FOR INJ (PEG) 1,000 MG/200 ML BAG IVPB SCH (20:30)
[2023-11-27] MEDS: dilTIAZem HCL 30 MG TABLET PO SCH (09:26)
[2023-11-27] MEDS: APIXABAN 5 MG TABLET PO SCH (09:26)
[2023-11-27 10:40] LABS: POTASSIUM 4.7 mmol/L (3.5-5.1)
[2023-11-27 10:41] LABS: HEMATOCRIT 31.3 % (32.4-45.2); HEMOGLOBIN 10.5 GM/dL (10.7-15.3); MCH 29.1 pg (25.7-33.7); MCHC 33.5 g/dl (32.0-36.0); MEAN CELL VOLUME 86.6 fl (80-96); MEAN PLT VOLUME 8.1 fl (7.5-11.1); PLATELET COUNT 284 10^3/uL (134-434); RBC 3.62 M/mm3 (3.60-5.2); WHITE BLOOD COUNT 21.4 K/mm3 (4.0-10.0)
[2023-11-27 10:42] LABS: ALBUMIN 2.4 g/dl (3.4-5.0); BLOOD UREA NITROGEN 16.6 mg/dL (7-18); CALCIUM 9.6 mg/dL (8.5-10.1)
[2023-11-27 10:45] LABS: CREATININE 0.7 mg/dL (0.55-1.3)
[2023-11-27 10:47] LABS: BILIRUBIN,TOTAL 0.3 mg/dL (0.2-1); TOT PROT 6.9 g/dl (6.4-8.2)
[2023-11-27 11:21] LABS: PLATELET ESTIMATE ADEQUATE
[2023-11-27] MEDS: methylPREDNISolone NA SUCC 40 MG/1 ML VIAL IVPUSH SCH (22:08)
[2023-11-27] MEDS: DOXYCYCLINE INJECTION 100 MG in DEXTROSE 5%-WATER 100 ML IVPB SCH (22:09)
[2023-11-28 09:10] LABS: HEMATOCRIT 32.8 % (32.4-45.2); LYMPH % 11.3 % (8-40); MCHC 33.5 g/dl (32.0-36.0); MEAN CELL VOLUME 86.6 fl (80-96); MEAN PLT VOLUME 7.9 fl (7.5-11.1); NEUT % 82.7 % (42.8-82.8); PLATELET COUNT 257 10^3/uL (134-434); RBC 3.79 M/mm3 (3.60-5.2); WHITE BLOOD COUNT 12.9 K/mm3 (4.0-10.0)
[2023-11-28 09:29] LABS: POTASSIUM 4.4 mmol/L (3.5-5.1)
[2023-11-28 09:36] LABS: BLOOD UREA NITROGEN 14.7 mg/dL (7-18)
[2023-11-28 09:38] LABS: CREATININE 0.8 mg/dL (0.55-1.3); MAGNESIUM 2.3 mg/dL (1.8-2.4)
[2023-11-28 09:47] LABS: N-TERMINAL BNP 1261.6 pg/ml (5-125)
[2023-11-28] MEDS: AMINO ACIDS/PROTEIN HYDROLYS 30 ML LIQUID.PKT PO SCH (17:20)
[2023-11-29 07:25] LABS: HEMATOCRIT 34.9 % (32.4-45.2); HEMOGLOBIN 11.5 GM/dL (10.7-15.3); MCH 28.8 pg (25.7-33.7); MEAN CELL VOLUME 87.5 fl (80-96); MEAN PLT VOLUME 7.9 fl (7.5-11.1); PLATELET COUNT 285 10^3/uL (134-434); RBC 3.99 M/mm3 (3.60-5.2); RDW 16.1 % (11.6-15.6); WHITE BLOOD COUNT 10.5 K/mm3 (4.0-10.0)
[2023-11-29 07:37] LABS: POTASSIUM 4.9 mmol/L (3.5-5.1)
[2023-11-29 07:38] LABS: CALCIUM 9.9 mg/dL (8.5-10.1)
[2023-11-29 07:39] LABS: BLOOD UREA NITROGEN 19.1 mg/dL (7-18); MAGNESIUM 2.1 mg/dL (1.8-2.4)
[2023-11-29 07:42] LABS: CREATININE 0.7 mg/dL (0.55-1.3); PHOSPHOROUS 3.7 mg/dL (2.5-4.9)
[2023-11-29 09:29] LABS: PLATELET ESTIMATE ADEQUATE
[2023-11-29 12:52] LABS: ALBUMIN 2.9 g/dl (3.4-5.0)
[2023-11-29 12:54] LABS: BILIRUBIN,DIRECT 0.1 mg/dL (0.0-0.2)
[2023-11-29 12:56] LABS: TOT PROT 7.5 g/dl (6.4-8.2)
[2023-11-29 12:57] LABS: BILIRUBIN,TOTAL 0.3 mg/dL (0.2-1)
[2023-11-29] MEDS: SODIUM CHLORIDE 1,000 ML IV SCH (14:55)
[2023-11-29] MEDS: FLUCONAZOLE 100 MG TABLET (UD) PO ONE (14:56)
[2023-11-30 08:12] LABS: BASO % 0.1 % (0-2.0); HEMATOCRIT 33.1 % (32.4-45.2); HEMOGLOBIN 10.9 GM/dL (10.7-15.3); LYMPH % 5.9 % (8-40); MCH 28.7 pg (25.7-33.7); MONO % 3.8 % (3.8-10.2); NEUT % 90.2 % (42.8-82.8); PLATELET COUNT 286 10^3/uL (134-434); RDW 15.9 % (11.6-15.6); WHITE BLOOD COUNT 11.7 K/mm3 (4.0-10.0)
[2023-11-30] MEDS: FLUCONAZOLE 100 MG TABLET (UD) PO SCH (09:32)
[2023-11-30 10:32] LABS: ALBUMIN 2.8 g/dl (3.4-5.0); BILIRUBIN,TOTAL 0.6 mg/dL (0.2-1); BLOOD UREA NITROGEN 21.2 mg/dL (7-18); CALCIUM 9.8 mg/dL (8.5-10.1); CREATININE 0.8 mg/dL (0.55-1.3); PHOSPHOROUS 3.3 mg/dL (2.5-4.9); TOT PROT 7.3 g/dl (6.4-8.2)
[2023-11-30] MEDS: AMINO ACIDS/PROTEIN HYDROLYS 30 ML LIQUID.PKT PO SCH (16:51)
[2023-12-01 08:15] LABS: BASO % 0.1 % (0-2.0); HEMATOCRIT 31.4 % (32.4-45.2); HEMOGLOBIN 10.3 GM/dL (10.7-15.3); LYMPH % 6.1 % (8-40); MCH 28.5 pg (25.7-33.7); MCHC 32.8 g/dl (32.0-36.0); MEAN PLT VOLUME 7.9 fl (7.5-11.1); NEUT % 88.8 % (42.8-82.8); PLATELET COUNT 287 10^3/uL (134-434); RBC 3.61 M/mm3 (3.60-5.2); RDW 15.8 % (11.6-15.6); WHITE BLOOD COUNT 12.1 K/mm3 (4.0-10.0)
[2023-12-01 08:31] LABS: CALCIUM 10.2 mg/dL (8.5-10.1)
[2023-12-01 08:32] LABS: ALBUMIN 2.7 g/dl (3.4-5.0); BLOOD UREA NITROGEN 21.2 mg/dL (7-18); MAGNESIUM 2.1 mg/dL (1.8-2.4)
[2023-12-01 08:34] LABS: PHOSPHOROUS 3.4 mg/dL (2.5-4.9)
[2023-12-01 08:35] LABS: CREATININE 0.8 mg/dL (0.55-1.3)
[2023-12-01 08:36] LABS: BILIRUBIN,TOTAL 0.3 mg/dL (0.2-1)
[2023-12-01] MEDS: methylPREDNISolone NA SUCC 40 MG/1 ML VIAL IVPUSH SCH (09:14)
[2023-12-01] MEDS: POTASSIUM CHLORIDE ORAL LIQUID 20 MEQ/15 ML PO ONE (13:18)
[2023-12-01] MEDS: SODIUM CHLORIDE 1,000 ML IV SCH (13:39)
[2023-12-01] MEDS ORDERED: ACETAMINOPHEN 1000 MG/100 ML BAG IVPB ONE ×2 (14:37→14:58)
[2023-12-01] MEDS ORDERED: SODIUM CHLORIDE 1,000 ML IV SCH (17:29)
[2023-12-01] MEDS: ACETAMINOPHEN 1000 MG/100 ML BAG IVPB ONE (17:31)
[2023-12-02 07:08] LABS: BASO % 0.2 % (0-2.0); EOS % 0.1 % (0-4.5); HEMATOCRIT 33.8 % (32.4-45.2); HEMOGLOBIN 11.1 GM/dL (10.7-15.3); LYMPH % 12.1 % (8-40); MCH 28.9 pg (25.7-33.7); MCHC 32.9 g/dl (32.0-36.0); MEAN CELL VOLUME 87.8 fl (80-96); MEAN PLT VOLUME 7.6 fl (7.5-11.1); MONO % 11.4 % (3.8-10.2); NEUT % 76.2 % (42.8-82.8); PLATELET COUNT 271 10^3/uL (134-434); RBC 3.85 M/mm3 (3.60-5.2); RDW 15.8 % (11.6-15.6); WHITE BLOOD COUNT 14.5 K/mm3 (4.0-10.0)
[2023-12-02 07:31] LABS: MAGNESIUM 1.8 mg/dL (1.8-2.4)
[2023-12-02 07:35] LABS: PHOSPHOROUS 2.9 mg/dL (2.5-4.9)
[2023-12-02 07:57] LABS: N-TERMINAL BNP 853.4 pg/ml (5-125)
[2023-12-02] MEDS: dilTIAZem HCL 30 MG TABLET PO ONE (09:25)
[2023-12-02 12:15] LABS: POTASSIUM 4.7 mmol/L (3.5-5.1)
[2023-12-02 12:16] LABS: CALCIUM 10.2 mg/dL (8.5-10.1)
[2023-12-02 12:17] LABS: BLOOD UREA NITROGEN 25.4 mg/dL (7-18)
[2023-12-02 12:20] LABS: CREATININE 0.9 mg/dL (0.55-1.3)
[2023-12-03 07:23] LABS: BASO % 0.1 % (0-2.0); EOS % 0.2 % (0-4.5); HEMATOCRIT 33.6 % (32.4-45.2); HEMOGLOBIN 11.1 GM/dL (10.7-15.3); LYMPH % 17.1 % (8-40); MCH 29.1 pg (25.7-33.7); MCHC 33.2 g/dl (32.0-36.0); MEAN CELL VOLUME 87.7 fl (80-96); MEAN PLT VOLUME 7.9 fl (7.5-11.1); MONO % 12.2 % (3.8-10.2); NEUT % 70.4 % (42.8-82.8); PLATELET COUNT 271 10^3/uL (134-434); RBC 3.83 M/mm3 (3.60-5.2); RDW 15.6 % (11.6-15.6); WHITE BLOOD COUNT 10.3 K/mm3 (4.0-10.0)
[2023-12-03 07:38] LABS: POTASSIUM 5.3 mmol/L (3.5-5.1)
[2023-12-03 07:41] LABS: CALCIUM 9.8 mg/dL (8.5-10.1)
[2023-12-03 07:42] LABS: ALBUMIN 2.7 g/dl (3.4-5.0); BLOOD UREA NITROGEN 27.1 mg/dL (7-18); MAGNESIUM 1.9 mg/dL (1.8-2.4)
[2023-12-03 07:45] LABS: CREATININE 0.9 mg/dL (0.55-1.3); PHOSPHOROUS 3.1 mg/dL (2.5-4.9)
[2023-12-03 07:47] LABS: BILIRUBIN,TOTAL 0.3 mg/dL (0.2-1)
[2023-12-03] MEDS: APIXABAN 5 MG TABLET PO SCH (09:51)
[2023-12-03] MEDS: predniSONE 20 MG TABLET (UD) PO SCH (09:51)
[2023-12-03] MEDS: dilTIAZem HCL 30 MG TABLET PO SCH (10:06)
[2023-12-03] MEDS: amLODIPine BESYLATE 2.5 MG TABLET (FP) PO SCH (12:47)
[2023-12-03] MEDS: SODIUM ZIRCONIUM CYCLOSILICATE (LOKELMA) 5 GM PACKET PO ONE (12:47)
[2023-12-03] MEDS: DEXTROSE 5%-NORMAL SALINE 1,000 ML IV SCH (12:48)
[2023-12-04 07:04] LABS: HEMATOCRIT 33.5 % (32.4-45.2); HEMOGLOBIN 11.2 GM/dL (10.7-15.3); MCH 28.9 pg (25.7-33.7); MCHC 33.3 g/dl (32.0-36.0); MEAN CELL VOLUME 86.8 fl (80-96); MEAN PLT VOLUME 7.5 fl (7.5-11.1); PLATELET COUNT 251 10^3/uL (134-434); RBC 3.86 M/mm3 (3.60-5.2); RDW 15.6 % (11.6-15.6); WHITE BLOOD COUNT 8.8 K/mm3 (4.0-10.0)
[2023-12-04 07:11] LABS: POTASSIUM 4.2 mmol/L (3.5-5.1)
[2023-12-04 07:15] LABS: ALBUMIN 2.5 g/dl (3.4-5.0); BLOOD UREA NITROGEN 22.6 mg/dL (7-18); CALCIUM 9.1 mg/dL (8.5-10.1)
[2023-12-04 07:16] LABS: MAGNESIUM 1.8 mg/dL (1.8-2.4)
[2023-12-04 07:18] LABS: CREATININE 0.8 mg/dL (0.55-1.3); PHOSPHOROUS 2.5 mg/dL (2.5-4.9)
[2023-12-04 07:20] LABS: BILIRUBIN,TOTAL 0.2 mg/dL (0.2-1); TOT PROT 6.4 g/dl (6.4-8.2)
[2023-12-04] MEDS: SODIUM ZIRCONIUM CYCLOSILICATE (LOKELMA) 5 GM PACKET PO SCH (10:34)
[2023-12-04] MEDS: AMINO ACIDS 4.25%/D5W 1,000 ML IV SCH (15:08)
[2023-12-05] MEDS: predniSONE 20 MG TABLET (UD) PO SCH (10:01)
[2023-12-05 12:40] LABS: HEMATOCRIT 32.4 % (32.4-45.2); HEMOGLOBIN 10.8 GM/dL (10.7-15.3); MCH 28.9 pg (25.7-33.7); MCHC 33.2 g/dl (32.0-36.0); MEAN CELL VOLUME 87.1 fl (80-96); MEAN PLT VOLUME 7.4 fl (7.5-11.1); PLATELET COUNT 286 10^3/uL (134-434); RBC 3.72 M/mm3 (3.60-5.2); RDW 15.8 % (11.6-15.6); WHITE BLOOD COUNT 11.6 K/mm3 (4.0-10.0)
[2023-12-05 12:57] LABS: POTASSIUM 4.2 mmol/L (3.5-5.1)
[2023-12-05 12:59] LABS: CALCIUM 9.4 mg/dL (8.5-10.1)
[2023-12-05 13:00] LABS: ALBUMIN 2.5 g/dl (3.4-5.0); BLOOD UREA NITROGEN 23.5 mg/dL (7-18); MAGNESIUM 1.8 mg/dL (1.8-2.4)
[2023-12-05 13:03] LABS: CREATININE 0.6 mg/dL (0.55-1.3); PHOSPHOROUS 2.5 mg/dL (2.5-4.9)
[2023-12-05 13:04] LABS: TOT PROT 6.5 g/dl (6.4-8.2)
[2023-12-05 13:05] LABS: BILIRUBIN,TOTAL 0.3 mg/dL (0.2-1)
[2023-12-05] MEDS: AMINO ACIDS 4.25%/D5W 1,000 ML IV SCH (17:11)
[2023-12-06 08:00] LABS: HEMATOCRIT 32.5 % (32.4-45.2); HEMOGLOBIN 10.9 GM/dL (10.7-15.3); MCH 29.3 pg (25.7-33.7); MCHC 33.4 g/dl (32.0-36.0); MEAN CELL VOLUME 87.7 fl (80-96); MEAN PLT VOLUME 7.4 fl (7.5-11.1); PLATELET COUNT 274 10^3/uL (134-434); RBC 3.71 M/mm3 (3.60-5.2); RDW 15.5 % (11.6-15.6)
[2023-12-06 08:12] LABS: POTASSIUM 3.9 mmol/L (3.5-5.1)
[2023-12-06 08:19] LABS: BLOOD UREA NITROGEN 27.4 mg/dL (7-18); CALCIUM 9.1 mg/dL (8.5-10.1); MAGNESIUM 1.9 mg/dL (1.8-2.4)
[2023-12-06 08:20] LABS: ALBUMIN 2.5 g/dl (3.4-5.0)
[2023-12-06 08:22] LABS: CREATININE 0.6 mg/dL (0.55-1.3)
[2023-12-06 08:23] LABS: BILIRUBIN,TOTAL 0.2 mg/dL (0.2-1); PHOSPHOROUS 2.2 mg/dL (2.5-4.9); TOT PROT 6.7 g/dl (6.4-8.2)
[2023-12-06] MEDS: NAPH,MB-DB/K PH,MBDB POWDER PACKET PO SCH (11:18)
[2023-12-06] MEDS: VALSARTAN 40 MG TABLET PO SCH (12:12)
[2023-12-06] MEDS: FAT EMULSION/OLIVE/SOY/PHOSPHO 250 ML IV SCH (21:29)
[2023-12-06] MEDS: clonazePAM 0.25 MG ODT TABLETS SL SCH (21:31)
[2023-12-06] MEDS ORDERED: FAT EMULSION/OLIVE/SOY (CLINOLIPID) 250 ML EMULSION IV SCH ×2 (22:00)
[2023-12-07] MEDS: AMINO ACIDS 4.25%/D5W 1,000 ML IV SCH (07:41)
[2023-12-07 07:46] LABS: HEMATOCRIT 32.2 % (32.4-45.2); HEMOGLOBIN 10.8 GM/dL (10.7-15.3); MCH 29.1 pg (25.7-33.7); MCHC 33.5 g/dl (32.0-36.0); MEAN CELL VOLUME 86.8 fl (80-96); MEAN PLT VOLUME 7.5 fl (7.5-11.1); PLATELET COUNT 303 10^3/uL (134-434); RBC 3.71 M/mm3 (3.60-5.2); RDW 15.6 % (11.6-15.6); WHITE BLOOD COUNT 8.5 K/mm3 (4.0-10.0)
[2023-12-07 08:00] LABS: POTASSIUM 3.8 mmol/L (3.5-5.1)
[2023-12-07 08:02] LABS: CALCIUM 9.1 mg/dL (8.5-10.1)
[2023-12-07 08:03] LABS: ALBUMIN 2.6 g/dl (3.4-5.0); BLOOD UREA NITROGEN 24.9 mg/dL (7-18); MAGNESIUM 1.8 mg/dL (1.8-2.4)
[2023-12-07 08:06] LABS: CREATININE 0.5 mg/dL (0.55-1.3); PHOSPHOROUS 2.9 mg/dL (2.5-4.9)
[2023-12-07 08:07] LABS: BILIRUBIN,TOTAL 0.2 mg/dL (0.2-1); TOT PROT 6.8 g/dl (6.4-8.2)
[2023-12-07] MEDS ORDERED: AMINO ACIDS 4.25%/D5W 1,000 ML IV SCH (10:00)
[2023-12-07 17:25] LABS: EPI CELLS 21 /uL (0-25.1); HYALINE CASTS 1 /uL (0-3.1); PH,URINE 5.5 (5.0-8.0); URINE APPEARANCE CLOUDY; URINE BACTERIA 15 /uL (0-1359); URINE BILIRUBIN NEGATIVE (NEGATIVE); URINE COLOR ORANGE; URINE GLUCOSE (UA) NEGATIVE (NEGATIVE); URINE KETONE NEGATIVE (NEGATIVE); URINE LEUK ESTERASE 1+ (NEGATIVE); URINE NITRITE NEGATIVE (NEGATIVE); URINE PROTEIN 1+ (NEGATIVE); URINE RBC 10758 /uL (0-23.9); URINE WBC 95 /uL (0-25.8)
[2023-12-07] MEDS: ONDANSETRON 4 MG/2 ML VIAL IVPUSH PRN (17:53)
[2023-12-08 08:51] LABS: HEMATOCRIT 30.2 % (32.4-45.2); HEMOGLOBIN 10.6 GM/dL (10.7-15.3); MCH 30.5 pg (25.7-33.7); MEAN PLT VOLUME 7.3 fl (7.5-11.1); PLATELET COUNT 246 10^3/uL (134-434); RBC 3.47 M/mm3 (3.60-5.2); RDW 15.9 % (11.6-15.6); WHITE BLOOD COUNT 8.6 K/mm3 (4.0-10.0)
[2023-12-08 09:32] LABS: POTASSIUM 3.4 mmol/L (3.5-5.1)
[2023-12-08 09:34] LABS: BLOOD UREA NITROGEN 24.9 mg/dL (7-18); CALCIUM 8.8 mg/dL (8.5-10.1); MAGNESIUM 1.8 mg/dL (1.8-2.4)
[2023-12-08 09:36] LABS: PHOSPHOROUS 2.8 mg/dL (2.5-4.9)
[2023-12-08 09:38] LABS: CREATININE 0.6 mg/dL (0.55-1.3)
[2023-12-08] MEDS: ACETAMINOPHEN 325 MG TABLET (FP) PO PRN (10:10)
[2023-12-08] MEDS: POTASSIUM CHLORIDE ORAL LIQUID 20 MEQ/15 ML PO ONE (11:15)
[2023-12-08] MEDS: DEXTROSE 5%-NORMAL SALINE 1,000 ML IV SCH (11:17)
[2023-12-09] MEDS: PIPERACILLIN/TAZOB 3.375 GM 3.375 GM in SODIUM CHLORIDE 50 ML IVPB SCH (01:31)
[2023-12-09 06:05] LABS: HEMATOCRIT 26.6 % (32.4-45.2); HEMOGLOBIN 9.2 GM/dL (10.7-15.3); MCH 30.1 pg (25.7-33.7); MCHC 34.4 g/dl (32.0-36.0); MEAN CELL VOLUME 87.4 fl (80-96); MEAN PLT VOLUME 7.4 fl (7.5-11.1); PLATELET COUNT 217 10^3/uL (134-434); RBC 3.05 M/mm3 (3.60-5.2); RDW 15.7 % (11.6-15.6); WHITE BLOOD COUNT 6.2 K/mm3 (4.0-10.0)
[2023-12-09 06:21] LABS: POTASSIUM 3.6 mmol/L (3.5-5.1)
[2023-12-09 06:26] LABS: ALBUMIN 2.1 g/dl (3.4-5.0); BLOOD UREA NITROGEN 16.5 mg/dL (7-18); CALCIUM 7.5 mg/dL (8.5-10.1); MAGNESIUM 1.7 mg/dL (1.8-2.4)
[2023-12-09 06:28] LABS: CREATININE 0.5 mg/dL (0.55-1.3); PHOSPHOROUS 2.5 mg/dL (2.5-4.9)
[2023-12-09 06:32] LABS: BILIRUBIN,TOTAL 0.2 mg/dL (0.2-1); TOT PROT 5.4 g/dl (6.4-8.2)
[2023-12-09] MEDS: MAGNESIUM 2GM/50ML STERILE WATER IVPB IVPB ONE (06:47)
[2023-12-09] MEDS: DEXTROSE 5%-NORMAL SALINE 1,000 ML IV SCH (15:15)
[2023-12-10 07:17] LABS: POTASSIUM 3.2 mmol/L (3.5-5.1)
[2023-12-10 07:20] LABS: ALBUMIN 2.2 g/dl (3.4-5.0); BLOOD UREA NITROGEN 10.9 mg/dL (7-18); CALCIUM 8.1 mg/dL (8.5-10.1)
[2023-12-10 07:23] LABS: CREATININE 0.5 mg/dL (0.55-1.3)
[2023-12-10 07:25] LABS: BILIRUBIN,TOTAL 0.3 mg/dL (0.2-1); TOT PROT 5.6 g/dl (6.4-8.2)
[2023-12-10] MEDS: ENOXAPARIN NA (PORCINE) 30 MG/0.3 ML DISP.SYRIN SQ SCH (10:04)
[2023-12-10] MEDS: ACETAMINOPHEN 1000 MG/100 ML BAG IVPB PRN (12:38)
[2023-12-10] MEDS: POTASSIUM CHLORIDE ORAL LIQUID 20 MEQ/15 ML PO ONE (14:14)
[2023-12-10] MEDS: MAGNESIUM SULF 50% (8.12 MEQ/2 ML-1 GM VIAL) IVPB ONE (14:14)
[2023-12-10] MEDS: DEXTROSE 5%-NORMAL SALINE 1,000 ML IV SCH (14:18)
[2023-12-10] MEDS: POTASSIUM CHLORIDE 20 MEQ in AMINO ACIDS 4.25%/D5W 1,000 ML IV SCH (14:19)
[2023-12-10] MEDS: MECLIZINE HCL 25 MG TABLET (FP) PO SCH (22:27)
[2023-12-10] MEDS: MIRTAZAPINE 15 MG TABLET (FP) PO SCH (22:27)
[2023-12-11 09:51] LABS: BASO % 0.1 % (0-2.0); HEMATOCRIT 26.4 % (32.4-45.2); HEMOGLOBIN 9.2 GM/dL (10.7-15.3); LYMPH % 11.7 % (8-40); MCH 30.3 pg (25.7-33.7); MCHC 34.7 g/dl (32.0-36.0); MEAN CELL VOLUME 87.3 fl (80-96); MEAN PLT VOLUME 7.7 fl (7.5-11.1); MONO % 7.3 % (3.8-10.2); NEUT % 79.9 % (42.8-82.8); PLATELET COUNT 192 10^3/uL (134-434); RBC 3.03 M/mm3 (3.60-5.2); RDW 16.7 % (11.6-15.6); WHITE BLOOD COUNT 8.9 K/mm3 (4.0-10.0)
[2023-12-11 10:22] LABS: POTASSIUM 3.7 mmol/L (3.5-5.1)
[2023-12-11 10:25] LABS: ALBUMIN 2.1 g/dl (3.4-5.0); CALCIUM 8.7 mg/dL (8.5-10.1); MAGNESIUM 1.9 mg/dL (1.8-2.4)
[2023-12-11 10:26] LABS: BLOOD UREA NITROGEN 9.1 mg/dL (7-18)
[2023-12-11 10:29] LABS: CREATININE 0.4 mg/dL (0.55-1.3)
[2023-12-11 10:30] LABS: BILIRUBIN,TOTAL 0.3 mg/dL (0.2-1); TOT PROT 5.6 g/dl (6.4-8.2)
[2023-12-11] MEDS ORDERED: ONDANSETRON 4 MG/2 ML VIAL IVPUSH PRN (18:04)
[2023-12-11] MEDS ORDERED: GLYCERIN 1 RECTAL SUPPOSITORY, ADULT RC PRN (18:04)
[2023-12-11] MEDS: DEXTROSE 5%-NORMAL SALINE 1,000 ML IV SCH (19:30)
[2023-12-11] MEDS: MECLIZINE HCL 25 MG TABLET (FP) PO SCH (22:33)
[2023-12-11] MEDS: MIRTAZAPINE 15 MG TABLET (FP) PO SCH (22:33)
[2023-12-11] MEDS: INSULIN ASPART SLIDING SCALE (NOVOLOG) 1 VIAL SQ SCH (22:35)
[2023-12-11] MEDS: clonazePAM 0.25 MG ODT TABLETS SL SCH (22:35)
[2023-12-11] MEDS: ATORVASTATIN CA 20 MG TABLET (FP) PO SCH (22:36)
[2023-12-11] MEDS: dilTIAZem HCL 30 MG TABLET PO SCH (22:36)
[2023-12-11] MEDS: POLYETHYLENE GLYCOL (HEALTHYLAX) 3350 17 GM PACKET PO SCH (22:36)
[2023-12-11] MEDS: FAT EMULSION/OLIVE/SOY/PHOSPHO 250 ML IV SCH (22:37)
[2023-12-11] MEDS: SULFAMETHOXAZOLE/TRIMETHOPRIM 400 MG in DEXTROSE 5%-WATER - 500 ML IVPB SCH (22:48)
[2023-12-12] MEDS: PIPERACILLIN/TAZOB 3.375 GM 3.375 GM in SODIUM CHLORIDE 50 ML IVPB SCH (02:00)
[2023-12-12 08:26] LABS: BASO % 0.1 % (0-2.0); EOS % 1.1 % (0-4.5); HEMATOCRIT 23.9 % (32.4-45.2); HEMOGLOBIN 8.3 GM/dL (10.7-15.3); LYMPH % 16.6 % (8-40); MCH 30.3 pg (25.7-33.7); MCHC 34.9 g/dl (32.0-36.0); MEAN CELL VOLUME 86.8 fl (80-96); MEAN PLT VOLUME 7.9 fl (7.5-11.1); MONO % 7.4 % (3.8-10.2); NEUT % 74.8 % (42.8-82.8); PLATELET COUNT 178 10^3/uL (134-434); RBC 2.75 M/mm3 (3.60-5.2); RDW 17.3 % (11.6-15.6); WHITE BLOOD COUNT 6.2 K/mm3 (4.0-10.0)
[2023-12-12 08:40] LABS: POTASSIUM 3.8 mmol/L (3.5-5.1)
[2023-12-12 08:53] LABS: CHOLESTEROL 146 mg/dL (50-200)
[2023-12-12 08:55] LABS: LDL CHOLESTEROL (ONLY SJRH) 76 mg/dL (5-100)
[2023-12-12 08:57] LABS: HDL CHOLESTEROL 51 mg/dL (40-60)
[2023-12-12 09:00] LABS: CALCIUM 8.3 mg/dL (8.5-10.1)
[2023-12-12] MEDS: AMINO ACIDS/PROTEIN HYDROLYS 30 ML LIQUID.PKT PO SCH (09:00)
[2023-12-12 09:01] LABS: BLOOD UREA NITROGEN 10.5 mg/dL (7-18); MAGNESIUM 1.6 mg/dL (1.8-2.4)
[2023-12-12 09:04] LABS: CREATININE 0.4 mg/dL (0.55-1.3); PHOSPHOROUS 1.9 mg/dL (2.5-4.9)
[2023-12-12 09:05] LABS: BILIRUBIN,TOTAL 0.2 mg/dL (0.2-1); TOT PROT 5.3 g/dl (6.4-8.2)
[2023-12-12] MEDS: predniSONE 20 MG TABLET (UD) PO SCH (10:48)
[2023-12-12] MEDS: THIAMINE 100 MG TABLET PO SCH (10:48)
[2023-12-12] MEDS: VALSARTAN 40 MG TABLET PO SCH (10:48)
[2023-12-12] MEDS: BICTEGRAV/EMTRICIT/TENOFOV (BIKTARVY) 50-200-25 MG TABLET PO SCH (10:56)
[2023-12-12] MEDS: ENOXAPARIN NA (PORCINE) 30 MG/0.3 ML DISP.SYRIN SQ SCH (10:57)
[2023-12-12] MEDS: FLUCONAZOLE 100 MG TABLET (UD) PO SCH (11:33)
[2023-12-12] MEDS: POTASSIUM CHLORIDE 20 MEQ in AMINO ACIDS 4.25%/D5W 1,000 ML IV SCH (12:32)
[2023-12-13 10:23] LABS: HEMATOCRIT 28.9 % (32.4-45.2); HEMOGLOBIN 9.5 GM/dL (10.7-15.3); MCH 30.1 pg (25.7-33.7); MCHC 32.9 g/dl (32.0-36.0); MEAN CELL VOLUME 91.6 fl (80-96); MEAN PLT VOLUME 7.6 fl (7.5-11.1); PLATELET COUNT 183 10^3/uL (134-434); RBC 3.16 M/mm3 (3.60-5.2); RDW 18.9 % (11.6-15.6); WHITE BLOOD COUNT 6.3 K/mm3 (4.0-10.0)
[2023-12-13 10:40] LABS: POTASSIUM 3.7 mmol/L (3.5-5.1)
[2023-12-13 10:42] LABS: CALCIUM 8.6 mg/dL (8.5-10.1)
[2023-12-13 10:43] LABS: ALBUMIN 2.1 g/dl (3.4-5.0); MAGNESIUM 1.7 mg/dL (1.8-2.4)
[2023-12-13 10:46] LABS: CREATININE 0.4 mg/dL (0.55-1.3); PHOSPHOROUS 2.2 mg/dL (2.5-4.9)
[2023-12-13 10:47] LABS: BILIRUBIN,TOTAL 0.1 mg/dL (0.2-1); TOT PROT 5.7 g/dl (6.4-8.2)
[2023-12-13] MEDS: MAGNESIUM SULF 50% (8.12 MEQ/2 ML-1 GM VIAL) IVPB ONE (15:45)
[2023-12-13] MEDS: NAPH,MB-DB/K PH,MBDB POWDER PACKET PO ONE (15:45)
[2023-12-14 08:48] LABS: HEMATOCRIT 26.5 % (32.4-45.2); MCH 30.4 pg (25.7-33.7); MEAN CELL VOLUME 89.6 fl (80-96); MEAN PLT VOLUME 7.8 fl (7.5-11.1); PLATELET COUNT 188 10^3/uL (134-434); RBC 2.96 M/mm3 (3.60-5.2); RDW 18.7 % (11.6-15.6); WHITE BLOOD COUNT 6.5 K/mm3 (4.0-10.0)
[2023-12-14 09:08] LABS: POTASSIUM 3.9 mmol/L (3.5-5.1)
[2023-12-14 09:12] LABS: ALBUMIN 2.2 g/dl (3.4-5.0); BLOOD UREA NITROGEN 12.7 mg/dL (7-18); CALCIUM 8.4 mg/dL (8.5-10.1); MAGNESIUM 1.9 mg/dL (1.8-2.4)
[2023-12-14 09:15] LABS: CREATININE 0.5 mg/dL (0.55-1.3); PHOSPHOROUS 2.4 mg/dL (2.5-4.9)
[2023-12-14 09:17] LABS: BILIRUBIN,TOTAL 0.2 mg/dL (0.2-1); TOT PROT 5.6 g/dl (6.4-8.2)
[2023-12-14] MEDS: SULFAMETHOXAZOLE/TRIMETHOPRIM 800MG/160MG D.S. TABLET PO SCH (10:09)
[2023-12-15 08:37] LABS: HEMATOCRIT 28.3 % (32.4-45.2); HEMOGLOBIN 9.5 GM/dL (10.7-15.3); MCH 30.5 pg (25.7-33.7); MCHC 33.5 g/dl (32.0-36.0); MEAN CELL VOLUME 91.1 fl (80-96); MEAN PLT VOLUME 7.8 fl (7.5-11.1); PLATELET COUNT 181 10^3/uL (134-434); RBC 3.11 M/mm3 (3.60-5.2); RDW 19.1 % (11.6-15.6); WHITE BLOOD COUNT 7.2 K/mm3 (4.0-10.0)
[2023-12-15 08:52] LABS: POTASSIUM 4.2 mmol/L (3.5-5.1)
[2023-12-15 09:13] LABS: BLOOD UREA NITROGEN 16.5 mg/dL (7-18); CALCIUM 8.7 mg/dL (8.5-10.1)
[2023-12-15 09:17] LABS: CREATININE 0.4 mg/dL (0.55-1.3)
[2023-12-15] MEDS ORDERED: clonazePAM 0.25 MG ODT TABLETS SL PRN ×2 (13:32→13:49)
[2023-12-16 09:05] LABS: HEMATOCRIT 28.6 % (32.4-45.2); HEMOGLOBIN 9.4 GM/dL (10.7-15.3); MCHC 32.7 g/dl (32.0-36.0); MEAN CELL VOLUME 91.7 fl (80-96); PLATELET COUNT 177 10^3/uL (134-434); RBC 3.12 M/mm3 (3.60-5.2); RDW 19.3 % (11.6-15.6); WHITE BLOOD COUNT 6.4 K/mm3 (4.0-10.0)
[2023-12-16 09:31] LABS: ALBUMIN 2.2 g/dl (3.4-5.0); BLOOD UREA NITROGEN 15.3 mg/dL (7-18)
[2023-12-16 09:34] LABS: CREATININE 0.4 mg/dL (0.55-1.3)
[2023-12-16 09:35] LABS: BILIRUBIN,TOTAL 0.3 mg/dL (0.2-1); TOT PROT 5.6 g/dl (6.4-8.2)
[2023-12-17] MEDS: ALBUTEROL SO4 2.5/IPRATROPIUM 0.5 INH SOL 3 ML VIAL.NEB. NEB SCH (11:45)
[2023-12-18 09:41] LABS: BASO % 0.8 % (0-2.0); EOS % 6.5 % (0-4.5); HEMOGLOBIN 8.8 GM/dL (10.7-15.3); LYMPH % 20.4 % (8-40); MCH 29.9 pg (25.7-33.7); MCHC 32.6 g/dl (32.0-36.0); MEAN CELL VOLUME 91.5 fl (80-96); MEAN PLT VOLUME 7.8 fl (7.5-11.1); MONO % 9.6 % (3.8-10.2); NEUT % 62.7 % (42.8-82.8); PLATELET COUNT 138 10^3/uL (134-434); RBC 2.95 M/mm3 (3.60-5.2); RDW 20.1 % (11.6-15.6); WHITE BLOOD COUNT 4.6 K/mm3 (4.0-10.0)
[2023-12-18 09:57] LABS: POTASSIUM 3.5 mmol/L (3.5-5.1)
[2023-12-18 09:59] LABS: CALCIUM 8.3 mg/dL (8.5-10.1)
[2023-12-18 10:00] LABS: BLOOD UREA NITROGEN 17.1 mg/dL (7-18); MAGNESIUM 1.7 mg/dL (1.8-2.4)
[2023-12-18 10:02] LABS: PHOSPHOROUS 3.2 mg/dL (2.5-4.9)
[2023-12-18 10:03] LABS: CREATININE 0.5 mg/dL (0.55-1.3)
[2023-12-18 10:04] LABS: BILIRUBIN,TOTAL 0.3 mg/dL (0.2-1)
[2023-12-20 22:36] VITALS: BMI 18.5
[2023-12-21 07:53] LABS: HEMATOCRIT 25.6 % (32.4-45.2); HEMOGLOBIN 8.5 GM/dL (10.7-15.3); MCH 30.6 pg (25.7-33.7); MCHC 33.3 g/dl (32.0-36.0); MEAN CELL VOLUME 91.8 fl (80-96); PLATELET COUNT 163 10^3/uL (134-434); RBC 2.79 M/mm3 (3.60-5.2); RDW 19.9 % (11.6-15.6)
[2023-12-21 08:00] LABS: POTASSIUM 3.6 mmol/L (3.5-5.1)
[2023-12-21 08:08] LABS: CREATININE 0.4 mg/dL (0.55-1.3)
[2023-12-21 08:09] LABS: BLOOD UREA NITROGEN 12.7 mg/dL (7-18)
[2023-12-21 08:10] LABS: BILIRUBIN,TOTAL 0.3 mg/dL (0.2-1); TOT PROT 5.4 g/dl (6.4-8.2)
[2023-12-21 08:11] LABS: CALCIUM 8.5 mg/dL (8.5-10.1)
[2023-12-21] MEDS: ASCORBIC ACID 250 MG TABLET (FP) PO SCH (10:02)
[2023-12-21] MEDS: MULTIVITAMINS (DAILY MVI) TABLET (FP) PO SCH (10:02)
[2023-12-21] MEDS: ACETAMINOPHEN 1000 MG/100 ML BAG IVPB ONE (10:28)
[2023-12-21 15:20] VITALS: RESP 18
[2023-12-23 09:15] LABS: POTASSIUM 4.1 mmol/L (3.5-5.1)
[2023-12-23 09:22] LABS: CALCIUM 8.7 mg/dL (8.5-10.1)
[2023-12-23 09:23] LABS: BLOOD UREA NITROGEN 10.5 mg/dL (7-18)
[2023-12-23 09:26] LABS: CREATININE 0.4 mg/dL (0.55-1.3)
[2023-12-23 09:27] LABS: BILIRUBIN,TOTAL 0.3 mg/dL (0.2-1); TOT PROT 5.6 g/dl (6.4-8.2)
[2023-12-23] MEDS: AMINO ACIDS/PROTEIN HYDROLYS 30 ML LIQUID.PKT PO SCH (10:10)
[2023-12-24 10:21] LABS: HEMATOCRIT 27.5 % (32.4-45.2); MCH 30.2 pg (25.7-33.7); MCHC 32.9 g/dl (32.0-36.0); MEAN CELL VOLUME 91.8 fl (80-96); PLATELET COUNT 245 10^3/uL (134-434); RBC 2.99 M/mm3 (3.60-5.2); RDW 19.5 % (11.6-15.6); WHITE BLOOD COUNT 3.9 K/mm3 (4.0-10.0)
[2023-12-24 10:37] LABS: POTASSIUM 3.8 mmol/L (3.5-5.1)
[2023-12-24 10:44] LABS: ALBUMIN 2.2 g/dl (3.4-5.0); BLOOD UREA NITROGEN 13.4 mg/dL (7-18)
[2023-12-24 10:45] LABS: MAGNESIUM 1.9 mg/dL (1.8-2.4)
[2023-12-24 10:47] LABS: CREATININE 0.5 mg/dL (0.55-1.3); PHOSPHOROUS 3.4 mg/dL (2.5-4.9)
[2023-12-24 10:48] LABS: BILIRUBIN,TOTAL 0.2 mg/dL (0.2-1)
[2023-12-24 10:49] LABS: TOT PROT 5.7 g/dl (6.4-8.2)
[2023-12-24 13:53] VITALS: BP 106/71; PULSE 95; TEMP 98.5
== END 2023-12-24 15:42 | DRG 974 ==
LOC: JER 15:23 → JERBED 20:17 → J4S 22:51 → J6S 12-11 17:20
PROVIDERS: ADMIT Internal Medicine; ATTEND Internal Medicine
DX: J18.9 Pneumonia, unspecified organism (principal); E43 Unspecified severe protein-calorie malnutrition; B20 Human immunodeficiency virus [HIV] disease; J96.01 Acute respiratory failure with hypoxia; J96.02 Acute respiratory failure with hypercapnia; J44.1 Chronic obstructive pulmonary disease with (acute) exacerbation; J45.901 Unspecified asthma with (acute) exacerbation; Z68.1 Body mass index [BMI] 19.9 or less, adult; I50.32 Chronic diastolic (congestive) heart failure; E87.1 Hypo-osmolality and hyponatremia; J44.0 Chronic obstructive pulmonary disease with (acute) lower respiratory infection; E78.5 Hyperlipidemia, unspecified; D64.9 Anemia, unspecified; E87.6 Hypokalemia; I48.0 Paroxysmal atrial fibrillation; I25.10 Atherosclerotic heart disease of native coronary artery without angina pectoris; I34.0 Nonrheumatic mitral (valve) insufficiency; I36.1 Nonrheumatic tricuspid (valve) insufficiency; I11.0 Hypertensive heart disease with heart failure; B37.0 Candidal stomatitis; R33.8 Other retention of urine; R31.9 Hematuria, unspecified; E88.A Wasting disease (syndrome) due to underlying condition; E87.5 Hyperkalemia; D68.32 Hemorrhagic disorder due to extrinsic circulating anticoagulants; T45.515A Adverse effect of anticoagulants, initial encounter; R62.7 Adult failure to thrive; G62.9 Polyneuropathy, unspecified; N28.1 Cyst of kidney, acquired; N20.0 Calculus of kidney
CPT/HCPCS: 0241U-QW; 36415; 71045-TC-FY; 76775-TC; 80048; 80053; 80061; 80076; 81003; 82803; 82962; 83036; 83615; 83735; 83880; 83930; 83935; 84100; 84300; 84439; 84443; 84484; 85025; 85027; 86359; 86360; 87040; 87086; 87116; 87449; 87497; 87633; 87899; 93005; 93010; 93306-TC; 94640; 94660; 99285-25; J0131; Q0162

== ENCOUNTER 2024-07-11 08:38 | Inpatient (IN) | payer OTHER, BC ==
[2024-07-11] MEDS ORDERED: ACETAMINOPHEN INJECTION 100 ML ONE (09:06)
[2024-07-11] MEDS: SODIUM CHLORIDE 0.9% 500 ML INFUS.BAG IV ONE (09:30)
[2024-07-11] MEDS: ACETAMINOPHEN 1000 MG/100 ML BAG IVPB ONE (09:30)
[2024-07-11] MEDS: ASPIRIN 81 MG CHEWABLE TABLETS PO ONE (10:08)
[2024-07-11 10:17] LABS: VENOUS O2 SATURATION 45.1 % (70-80); VENOUS PCO2 46.3 mmHg (38-52); VENOUS PH 7.419 (7.310-7.410)
[2024-07-11 10:18] LABS: BASO % 0.5 % (0-2.0); EOS % 0.5 % (0-4.5); HEMATOCRIT 32.9 % (32.4-45.2); HEMOGLOBIN 10.6 GM/dL (10.7-15.3); MCH 28.9 pg (25.7-33.7); MCHC 32.4 g/dl (32.0-36.0); MEAN CELL VOLUME 89.1 fl (80-96); MEAN PLT VOLUME 7.9 fl (7.5-11.1); MONO % 8.6 % (3.8-10.2); NEUT % 84.4 % (42.8-82.8); PLATELET COUNT 316 10^3/uL (134-434); RBC 3.69 M/mm3 (3.60-5.2); RDW 14.6 % (11.6-15.6); WHITE BLOOD COUNT 13.4 K/mm3 (4.0-10.0)
[2024-07-11 10:21] LABS: EPI CELLS 7 /uL (0-25.1); HYALINE CASTS 1 /uL (0-3.1); PH,URINE 7.5 (5.0-8.0); URINE APPEARANCE CLOUDY; URINE BACTERIA 15 /uL (0-1359); URINE BILIRUBIN NEGATIVE (NEGATIVE); URINE COLOR YELLOW; URINE GLUCOSE (UA) NEGATIVE (NEGATIVE); URINE KETONE NEGATIVE (NEGATIVE); URINE LEUK ESTERASE 1+ (NEGATIVE); URINE NITRITE NEGATIVE (NEGATIVE); URINE PROTEIN TRACE (NEGATIVE); URINE UROBILINOGEN 0.2 mg/dL (0.2-1.0); URINE WBC 85 /uL (0-25.8)
[2024-07-11 10:25] LABS: INR 1.17 (0.83-1.09); PROTHROMBIN TIME (PATIENT) 13.4 SEC (9.7-13.0)
[2024-07-11 10:28] LABS: ACTIVATED PTT 33.2 SECONDS (25.2-36.5)
[2024-07-11 10:40] LABS: POTASSIUM 4.3 mmol/L (3.5-5.1)
[2024-07-11 10:43] LABS: ALBUMIN 2.9 g/dl (3.4-5.0); CALCIUM 9.6 mg/dL (8.5-10.1); URINE RBC 49 /uL (0-23.9)
[2024-07-11 10:44] LABS: URINE CRYSTALS NONE SEEN /hpf
[2024-07-11 10:47] LABS: CREATININE 0.6 mg/dL (0.55-1.3)
[2024-07-11 10:48] LABS: BILIRUBIN,TOTAL 0.4 mg/dL (0.2-1); TOT PROT 7.7 g/dl (6.4-8.2)
[2024-07-11] MEDS ORDERED: PIPERACILLIN/TAZOB 3.375 GM 3.375 GM/50 ML BAG IVPB ONE (11:00)
[2024-07-11] MEDS ORDERED: VANCOMYCIN 1 GM PREMIX (F) 1 GM/200 ML BAG ONE (11:00)
[2024-07-11] MEDS: VANCOMYCIN 1,000 MG in DEXTROSE 5%-WATER - 250 ML IVPB ONE (11:00)
[2024-07-11] MEDS: PIPERACILLIN/TAZOB 4.5 GM 3.375 GM in DEXTROSE 5%-WATER 100 ML IVPB ONE (12:03)
[2024-07-11] MEDS ORDERED: ONDANSETRON 4 MG TABLET PO PRN (12:53)
[2024-07-11] MEDS ORDERED: POLYETHYLENE GLYCOL (HEALTHYLAX) 3350 17 GM PACKET PO PRN (12:53)
[2024-07-11] MEDS ORDERED: ALBUTEROL SO4 HFA INHALER IH PRN (12:53)
[2024-07-11] MEDS ORDERED: ALBUTEROL SO4 0.083% IH SOL 2.5 MG/3 ML VIAL.NEB. NEB PRN (12:53)
[2024-07-11] MEDS ORDERED: GLYCERIN 1 RECTAL SUPPOSITORY, ADULT RC PRN (12:53)
[2024-07-11] MEDS ORDERED: traMADol HCL 50 MG TABLET ONE (15:08)
[2024-07-11] MEDS ORDERED: ASPIRIN COATED 81 MG TABLET.EC ONE (15:08)
[2024-07-11] MEDS ORDERED: dilTIAZem HCL 30 MG TABLET ONE (15:09)
[2024-07-11] MEDS: ASPIRIN COATED 81 MG TABLET.EC PO SCH (15:19)
[2024-07-11] MEDS: traMADol HCL 50 MG TABLET PO SCH (15:19)
[2024-07-11] MEDS: BICTEGRAV/EMTRICIT/TENOFOV (BIKTARVY) 50-200-25 MG TABLET PO SCH (15:19)
[2024-07-11] MEDS: dilTIAZem HCL 30 MG TABLET PO SCH (15:20)
[2024-07-11 16:45] VITALS: BMI 19.7
[2024-07-11] MEDS: MECLIZINE HCL 25 MG TABLET (FP) PO SCH (21:49)
[2024-07-11] MEDS: MIRTAZAPINE 15 MG TABLET (FP) PO SCH (21:49)
[2024-07-11] MEDS: HEPARIN NA (PORCINE) 5,000 UNITS/ML 1ML VIAL SQ SCH (21:49)
[2024-07-11] MEDS: SENNOSIDES 8.6MG TABLET (FP) PO SCH (21:49)
[2024-07-12 08:26] LABS: BASO % 0.8 % (0-2.0); EOS % 5.3 % (0-4.5); HEMATOCRIT 28.6 % (32.4-45.2); HEMOGLOBIN 9.6 GM/dL (10.7-15.3); LYMPH % 14.4 % (8-40); MCH 29.7 pg (25.7-33.7); MCHC 33.4 g/dl (32.0-36.0); MEAN CELL VOLUME 88.8 fl (80-96); MEAN PLT VOLUME 7.8 fl (7.5-11.1); MONO % 11.2 % (3.8-10.2); NEUT % 68.3 % (42.8-82.8); PLATELET COUNT 259 10^3/uL (134-434); RBC 3.22 M/mm3 (3.60-5.2); RDW 14.8 % (11.6-15.6); WHITE BLOOD COUNT 8.1 K/mm3 (4.0-10.0)
[2024-07-12 08:39] LABS: POTASSIUM 3.9 mmol/L (3.5-5.1)
[2024-07-12 08:43] LABS: CALCIUM 9.3 mg/dL (8.5-10.1)
[2024-07-12 08:44] LABS: BLOOD UREA NITROGEN 14.2 mg/dL (7-18)
[2024-07-12 08:48] LABS: CREATININE 0.4 mg/dL (0.55-1.3)
[2024-07-12 08:50] LABS: N-TERMINAL BNP 1353.3 pg/ml (5-125)
[2024-07-12] MEDS: BUDESONIDE/FORMOTEROL FUMARATE 80-4.5 MCG (10.3 GM INHALER) IH SCH (10:43)
[2024-07-12] MEDS: ATORVASTATIN CA 20 MG TABLET (FP) PO SCH (10:44)
[2024-07-12] MEDS: THIAMINE 100 MG TABLET PO SCH (10:44)
[2024-07-12] MEDS: CEFTRIAXONE 1 GM/50 ML IVPB SCH (10:44)
[2024-07-12] MEDS: MULTIVITAMINS (DAILY MVI) TABLET (FP) PO SCH (10:45)
[2024-07-12] MEDS: POLYETHYLENE GLYCOL (HEALTHYLAX) 3350 17 GM PACKET PO SCH (17:43)
[2024-07-13] MEDS: CEFTRIAXONE 1 G/50 ML PREMIX 50 ML IVPB SCH (09:05)
[2024-07-13 09:30] LABS: BASO % 0.7 % (0-2.0); EOS % 10.3 % (0-4.5); HEMATOCRIT 28.2 % (32.4-45.2); HEMOGLOBIN 9.6 GM/dL (10.7-15.3); LYMPH % 13.2 % (8-40); MCHC 34.1 g/dl (32.0-36.0); MEAN CELL VOLUME 88.1 fl (80-96); MEAN PLT VOLUME 7.9 fl (7.5-11.1); MONO % 8.8 % (3.8-10.2); PLATELET COUNT 274 10^3/uL (134-434); RBC 3.19 M/mm3 (3.60-5.2); RDW 14.5 % (11.6-15.6); WHITE BLOOD COUNT 7.1 K/mm3 (4.0-10.0)
[2024-07-13 09:49] LABS: POTASSIUM 3.8 mmol/L (3.5-5.1)
[2024-07-13 09:58] LABS: CALCIUM 9.1 mg/dL (8.5-10.1)
[2024-07-13 10:01] LABS: CREATININE 0.3 mg/dL (0.55-1.3)
[2024-07-13 10:02] LABS: BLOOD UREA NITROGEN 10.8 mg/dL (7-18); PHOSPHOROUS 3.1 mg/dL (2.5-4.9)
[2024-07-13 10:03] LABS: BILIRUBIN,TOTAL 0.2 mg/dL (0.2-1)
[2024-07-13 10:04] LABS: TOT PROT 6.5 g/dl (6.4-8.2)
[2024-07-13 10:32] LABS: ALBUMIN 2.2 g/dl (3.4-5.0)
[2024-07-13] MEDS: AZITHROMYCIN IVPB 500 MG/250 ML BAG IVPB SCH (10:52)
[2024-07-13] MEDS: ACETAMINOPHEN 325 MG TABLET (FP) PO PRN (13:53)
[2024-07-13] MEDS: SULFAMETHOXAZOLE/TRIMETHOPRIM 800MG/160MG D.S. TABLET PO SCH (16:52)
[2024-07-14 09:28] LABS: HEMATOCRIT 29.3 % (32.4-45.2); HEMOGLOBIN 9.3 GM/dL (10.7-15.3); MCH 28.5 pg (25.7-33.7); MCHC 31.9 g/dl (32.0-36.0); MEAN CELL VOLUME 89.3 fl (80-96); MEAN PLT VOLUME 7.6 fl (7.5-11.1); PLATELET COUNT 277 10^3/uL (134-434); RBC 3.28 M/mm3 (3.60-5.2); RDW 14.8 % (11.6-15.6); WHITE BLOOD COUNT 6.2 K/mm3 (4.0-10.0)
[2024-07-14 09:51] LABS: POTASSIUM 3.9 mmol/L (3.5-5.1)
[2024-07-14] MEDS: ASCORBIC ACID 500 MG TABLET (FP) PO SCH (10:12)
[2024-07-14 10:34] LABS: ALBUMIN 2.3 g/dl (3.4-5.0)
[2024-07-14 10:35] LABS: BLOOD UREA NITROGEN 10.4 mg/dL (7-18)
[2024-07-14 10:38] LABS: CREATININE 0.4 mg/dL (0.55-1.3)
[2024-07-14 10:39] LABS: BILIRUBIN,TOTAL 0.4 mg/dL (0.2-1); TOT PROT 6.3 g/dl (6.4-8.2)
[2024-07-16 09:43] LABS: BASO % 1.2 % (0-2.0); EOS % 15.4 % (0-4.5); HEMATOCRIT 29.8 % (32.4-45.2); HEMOGLOBIN 9.8 GM/dL (10.7-15.3); LYMPH % 20.8 % (8-40); MCH 28.6 pg (25.7-33.7); MCHC 32.7 g/dl (32.0-36.0); MEAN CELL VOLUME 87.6 fl (80-96); MEAN PLT VOLUME 7.6 fl (7.5-11.1); MONO % 11.8 % (3.8-10.2); NEUT % 50.8 % (42.8-82.8); PLATELET COUNT 278 10^3/uL (134-434); RBC 3.41 M/mm3 (3.60-5.2); RDW 14.4 % (11.6-15.6); WHITE BLOOD COUNT 6.2 K/mm3 (4.0-10.0)
[2024-07-16 09:47] LABS: INR 1.29 (0.83-1.09); PROTHROMBIN TIME (PATIENT) 14.5 SEC (9.7-13.0)
[2024-07-16 10:03] LABS: POTASSIUM 3.9 mmol/L (3.5-5.1)
[2024-07-16 10:24] LABS: ALBUMIN 2.4 g/dl (3.4-5.0); BLOOD UREA NITROGEN 11.7 mg/dL (7-18)
[2024-07-16 10:26] LABS: MAGNESIUM 2.1 mg/dL (1.8-2.4)
[2024-07-16 10:27] LABS: CREATININE 0.4 mg/dL (0.55-1.3)
[2024-07-16 10:28] LABS: BILIRUBIN,TOTAL 0.3 mg/dL (0.2-1)
[2024-07-16 10:30] LABS: TOT PROT 6.5 g/dl (6.4-8.2)
[2024-07-16] MEDS: AMINO ACIDS/PROTEIN HYDROLYS 30 ML LIQUID.PKT PO SCH (18:24)
[2024-07-17 09:35] LABS: HEMATOCRIT 31.1 % (32.4-45.2); MCH 28.6 pg (25.7-33.7); MCHC 32.3 g/dl (32.0-36.0); MEAN CELL VOLUME 88.7 fl (80-96); MEAN PLT VOLUME 7.7 fl (7.5-11.1); PLATELET COUNT 297 10^3/uL (134-434); RBC 3.51 M/mm3 (3.60-5.2); RDW 14.8 % (11.6-15.6); WHITE BLOOD COUNT 7.1 K/mm3 (4.0-10.0)
[2024-07-17 10:01] LABS: POTASSIUM 4.1 mmol/L (3.5-5.1)
[2024-07-17 10:07] LABS: CALCIUM 9.1 mg/dL (8.5-10.1)
[2024-07-17 10:08] LABS: ALBUMIN 2.4 g/dl (3.4-5.0); BLOOD UREA NITROGEN 11.9 mg/dL (7-18)
[2024-07-17 10:10] LABS: CREATININE 0.4 mg/dL (0.55-1.3)
[2024-07-17 10:12] LABS: BILIRUBIN,TOTAL 0.2 mg/dL (0.2-1)
[2024-07-17 10:14] LABS: TOT PROT 6.6 g/dl (6.4-8.2)
[2024-07-17] MEDS ORDERED: traMADol HCL 50 MG TABLET PO PRN (13:15)
[2024-07-17] MEDS ORDERED: morphine CARPU-JECT 4 MG/1 ML DISP.SYRIN IVPUSH PRN (14:18)
[2024-07-17] MEDS: ACETAMINOPHEN 1000 MG/100 ML BAG IVPB ONE (14:46)
[2024-07-17] MEDS: AMOX TR/POT CLAV 875MG/125MG TABLETS (FP) PO SCH (19:30)
[2024-07-18 09:08] VITALS: RESP 18
[2024-07-20] MEDS ORDERED: oxyCODONE HCL 5 MG TABLET PO PRN (15:53)
[2024-07-20] MEDS: oxyCODONE HCL 5 MG TABLET PO PRN (21:27)
[2024-07-21] MEDS: SULFAMETHOXAZOLE/TRIMETHOPRIM 800MG/160MG D.S. TABLET PO SCH (09:28)
[2024-07-21 10:01] VITALS: BP 134/83; PULSE 82; TEMP 97.3
== END 2024-07-21 13:04 | disposition hospice, inpatient (51) | DRG 974 ==
LOC: JER 08:38 → JERBED 11:59 → J6S 16:33
PROVIDERS: ADMIT Internal Medicine; ATTEND Internal Medicine
DX: J18.9 Pneumonia, unspecified organism (principal); E43 Unspecified severe protein-calorie malnutrition; B20 Human immunodeficiency virus [HIV] disease; L89.154 Pressure ulcer of sacral region, stage 4; I50.32 Chronic diastolic (congestive) heart failure; Z68.1 Body mass index [BMI] 19.9 or less, adult; M48.54XA Collapsed vertebra, not elsewhere classified, thoracic region, initial encounter for fracture; M48.56XA Collapsed vertebra, not elsewhere classified, lumbar region, initial encounter for fracture; I25.10 Atherosclerotic heart disease of native coronary artery without angina pectoris; E78.5 Hyperlipidemia, unspecified; I48.0 Paroxysmal atrial fibrillation; R91.8 Other nonspecific abnormal finding of lung field; K59.00 Constipation, unspecified; Z99.81 Dependence on supplemental oxygen; D64.9 Anemia, unspecified; J43.9 Emphysema, unspecified; I71.40 Abdominal aortic aneurysm, without rupture, unspecified
CPT/HCPCS: 0241U-QW; 36415; 71045-TC-FY; 71275-TC; 74177-TC; 80048; 80053; 80061; 81003; 82728; 82803; 83036; 83540; 83550; 83605; 83615; 83735; 83880; 84100; 84439; 84443; 84484; 85025; 85027; 85045; 85610; 85730; 86359; 86360; 86480; 86850; 86900; 86901; 87040; 87086; 87305; 87536; 87899; 93005; 93010; 93306-TC; 99291; J0131; J1644; Q9967